=== PATIENT | female | born 2000 | race Caucasian/White ===

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

== ENCOUNTER 2021-03-13 16:56 | Emergency (ER) | payer OTHER, MEDICAID, SELFPAY ==
[2021-03-13 16:57] VITALS: BP 164/97; PULSE 113; RESP 20; TEMP 36.6; O2SAT 98; BMI 28.7
--- NOTE | 2021-03-13 17:12 | XR_ITS ---
PROCEDURE INFORMATION: Exam: XR Chest Exam date and time: 03/13/2021 5:12 PM Age: 20 years old Clinical indication: Pain; Other: Anxiety; Additional info: Heart racing. Anxiety. TECHNIQUE: Imaging protocol: XR of the chest. Views: 1 view. COMPARISON: CR XR CHEST 2V 05/12/2019 12:13 AM FINDINGS: Lungs: Unremarkable. No consolidation. Pleural spaces: Unremarkable. No pleural effusion. No pneumothorax. Heart/Mediastinum: Unremarkable. No cardiomegaly. Bones/joints: Unremarkable. IMPRESSION: No acute findings.
--- NOTE | 2021-03-13 17:18 | ECG_ITS ---
APPROVED REPORT Exam: Resting ECG HR:100 bpm ECG Measurements Heart Rate 100 AXES [place] 132 P 69 QRSd 76 QRS 69 QT 348 T 30 QTc 448 Conclusion Normal sinus rhythm Possible Left atrial enlargement Borderline ECG Electronically signed by : Son Portillo, 03/13/2021 21:29:46
--- NOTE | 2021-03-13 17:30 | HMH.EDGENADL ---
ED Disposition Clinical Impression: Headache, Palpitations Disposition: Home, Self-Care Condition on Discharge: Good Additional Instructions: Return for worsening palpitations chest pain or any other concerns within 8 hours otherwise follow-up with Dr. Velazquez next week Referrals: Nain Velazquez MD [Primary Care Provider] - - Critical Care Critical Care Time: No Attestation: On 03/13/21, the high probability of a clinically significant, sudden or life threatening deterioration of the following system(s) required my full and direct attention, intervention and personal management. The time I documented below is in addition to time spent performing reported procedures but includes the following listed in this critical care notation. Medical Decision Making - Medical Records Medical records reviewed: Yes: I reviewed the patient's medical records. - Toro Inquiry Pt receiving controlled substance: No Vital Signs: 03/13/21 16:57 Temperature 98 F Temperature Source Oral Pulse Rate [Radial] 113 H Respiratory Rate 20 Blood Pressure [Right Arm] 164/97 H Blood Pressure Mean [Right Arm] 119 Blood Pressure Position [Right Arm] Sitting 02 Sat by Pulse Oximetry 98 Oxygen Delivery Method Room Air - Lab Data Lab Results 03/13/21 17:06: Serum HCG, Qual Negative 03/13/21 17:30: WBC 5.6, RBC 4.12 L, Hgb 13.4, Hct 34.7 L, MCV 84.2, MCH 32.5 H, MCHC 38.7 H, RDW 13.4, Plt Count 287, MPV 7.5, Neut % (Auto) 59.5, Lymph % (Auto) 33.1, [place] % (Auto) 5.5, Eos % (Auto) 1.3, Baso % (Auto) 0.7, Neut # (Auto) 3.3, Lymph # (Auto) 1.8, [place] # (Auto) 0.3, Eos # (Auto) 0.1, Baso # (Auto) 0.0 03/13/21 17:30: Sodium 142, Potassium 3.8, Chloride 104, Carbon Dioxide 27, Anion Gap 14.8, BUN 15, Creatinine 0.80, Estimated Creat Clear 162, Estimated GFR 92, Est GFR ( Amer) 112, Glucose 119 H, Calcium 9.1, Magnesium 1.7, Troponin I < 0.01, TSH 1.06 03/13/21 17:30: D-Dimer 0.41 Result diagrams: 03/13/21 17:30 03/13/21 17:30 Orders (Tests/Meds): ED MEDICATIONS Generic Name Dose Route Start Last Admin Trade Name Freq PRN Reason Stop Dose Admin Sodium Chloride 1,000 mls @ 999 mls/hr 03/13/21 17:45 03/13/21 17:41 Sod Chlor 0.9% 1000ml Bag IV 03/13/21 18:45 999 mls/hr .Q1H1M MACRINA Administration Sodium Chloride 10 ml 03/13/21 17:34 Sodium Chloride 0.9% 10ml Vial IV 04/12/21 17:33 NEEDED PRN to Dilute Lorazepam inj Discontinued Medications Generic Name Dose Route Start Last Admin Trade Name Freq PRN Reason Stop Dose Admin Ketorolac Tromethamine 30 mg 03/13/21 18:34 03/13/21 18:56 Ketorolac 30mg/Ml Vial IV 03/13/21 18:35 30 mg ONCE ONE Administration Lorazepam 1 mg 03/13/21 17:34 03/13/21 17:41 Lorazepam 2mg/Ml Vial IV 03/13/21 17:35 1 mg ONCE ONE Administration Metoclopramide HCl 10 mg 03/13/21 18:33 03/13/21 18:56 Metoclopramide Hcl 10mg/2ml Vial IVP 03/13/21 18:34 10 mg ONCE ONE Administration ORDERS Category Date Time Status Troponin I Q3H Lab 03/13/21 20:15 Ordered Troponin I Q3H Lab 03/13/21 23:15 Ordered Medical Decision Narrative: 20-year-old female presents with palpitations. She is still in mild distress. Plan to obtain D-dimer as she low risk for pulmonary embolism. Thyroid and electrolytes checked as well as well as blood counts. Plan to give IV fluids and Ativan for anxiety. CT head obtained as she has had persistent daily headaches and not had a headache imaging to this point. 615pm--labs resulted D-dimer was negative hemoglobin normal electrolytes otherwise unremarkable thyroid test negative. CT head obtained and there is no evidence of hemorrhage or tumor or any other concerns. Plan to discharge with follow-up to Dr. Velazquez next week General Adult HPI - General Chief complaint: Weakness Stated complaint: Tremers,GAXIOLA Time Seen by Provider: 03/13/21 17:05 Mode of Arrival: Ambulatory Limitations: No Limitations Descript
[2021-03-13 17:58] LABS: Basophils % 0.7 % (0.1-2.0); Eosinophils # 0.1 K/mm3 (0.0-0.4); Eosinophils % 1.3 % (0.1-12.0); Hematocrit 34.7 % (37.0-47.0); Hemoglobin 13.4 g/dL (12.2-16.2); Lymphocytes # 1.8 K/mm3 (0.7-4.5); Lymphocytes % 33.1 % (10-50); Mean Corpuscular HGB Conc 38.7 g/dL (31.8-35.4); Mean Corpuscular Hemoglobin 32.5 pg (27.0-31.2); Mean Corpuscular Volume 84.2 fl (81-99); Mean Platelet Volume 7.5 fl (7.4-10.4); Monocytes # 0.3 K/mm3 (0.1-1.0); Monocytes % 5.5 % (1.7-9.3); Neutrophils # 3.3 K/mm3 (1.8-7.8); Neutrophils % 59.5 % (37.0-80.0); Platelet Count 287 K/mm3 (142-424); Red Blood Count 4.12 M/mm3 (4.20-5.40); Red Cell Distribution Width 13.4 % (11.5-17.5); White Blood Count 5.6 K/mm3 (4.5-13.0)
[2021-03-13 18:00] LABS: Chloride 104 mmol/L (98-107)
[2021-03-13 18:01] LABS: Potassium 3.8 mmoL/L (3.5-5.1); Sodium 142 mmol/L (136-145)
[2021-03-13 18:03] LABS: HCG Qualitative, Serum Negative (Negative)
[2021-03-13 18:04] LABS: Anion Gap 14.8 mEq/L (5-15); Blood Urea Nitrogen 15 mg/dl (7-17); Calcium 9.1 mg/dl (8.4-10.2); Carbon Dioxide 27 mmol/L (22.0-30.0); Creatinine Clearance Estimated 162 mL/min (50-200); Estimated Glomerular Filt Rate 92 ml/min (>60); GFR (African American) 112 ML/MIN (>60); Glucose 119 mg/dl (74-100); Magnesium 1.7 mg/dl (1.6-2.3)
[2021-03-13 18:12] LABS: D-Dimer 0.41 ug/mL (0.0-0.5)
[2021-03-13 18:26] LABS: Troponin I < 0.01 ng/ml (0.00-0.034)
--- NOTE | 2021-03-13 18:33 | CT_ITS ---
PROCEDURE INFORMATION: Exam: CT Head Without Contrast Exam date and time: 03/13/2021 6:33 PM Age: 20 years old Clinical indication: Pain; Headache; Other: Back of head TECHNIQUE: Imaging protocol: Computed tomography of the head without contrast. Radiation optimization: All CT scans at this facility use at least one of these dose optimization techniques: automated exposure control; mA and/or kV adjustment per patient size (includes targeted exams where dose is matched to clinical indication); or iterative reconstruction. COMPARISON: HEADWO CT head/brain wo con 02/02/2018 10:23 PM FINDINGS: Brain: Normal. No hemorrhage. Unremarkable white matter. No mass effect. Cerebral ventricles: No ventriculomegaly. Paranasal sinuses: Visualized sinuses are unremarkable. No fluid levels. Mastoid air cells: Visualized mastoid air cells are well aerated. Bones/joints: Unremarkable. No acute fracture. Soft tissues: Unremarkable. No reconstructions provided. IMPRESSION: No acute intracranial abnormality.
[2021-03-13 18:35] LABS: Thyroid Stimulating Hormone 1.06 uIU/mL (0.465-4.68)
[2021-03-13 19:42] VITALS: BP 141/76; PULSE 90; RESP 18; TEMP 36.7; O2SAT 97
== END 2021-03-13 19:47 | disposition home or self-care (01) ==
PROVIDERS: Emergency Provider Emergency Medicine; PCP Emergency Medicine
DX: R51.9 Headache, unspecified (principal); R00.2 Palpitations
CPT/HCPCS: 70450; 71045; 80048; 83735; 84443; 84484; 84703; 85025; 85378; 93005; 96365; 96375; 99283

== ENCOUNTER → 2021-05-09 15:07 | Outpatient (CLI) | payer OTHER, MEDICAID, SELFPAY ==
--- NOTE | 2021-05-09 15:17 | MR_ITS ---
PROCEDURE: MR HEAD/BRAIN WO CON CLINICAL INDICATION: eval for MANAGER SEMICONDUCTOR abnormality Headache, left upper extremity tingling the COMPARISON: No exams were available for comparison TECHNIQUE: Routine multiplanar multi echo sequences are performed without gadolinium enhancement. FINDINGS: No midline shift, mass effect, intracranial hemorrhage, or hydrocephalus is evident. The cerebellopontine angles, cerebellum, and brainstem have an unremarkable appearance. No areas of restricted diffusion that would indicate an acute infarction. Unremarkable appearing white matter. The hippocampal gyri have an unremarkable appearance in the temporal horns are symmetric. The pituitary, optic chiasm, corpus callosum, and craniocervical junction are unremarkable. No large aneurysms apparent. No mastoid effusion or sinus air-fluid level. Mild rightward nasal septal deviation. Unremarkable appearing orbits. IMPRESSION: Negative MRI of the brain without contrast Dictated by: Agustín Solomon MD 05/12/2021 07:43 Agustín Solomon MD in [place] 05/12/2021 07:43
--- NOTE | 2021-05-09 15:17 | MR_ITS ---
PROCEDURE: MR CERVICAL SPINE WO CON CLINICAL INDICATION: eval for cervical radiculopathy with early myelopa Left upper extremity tingling COMPARISON: CT SPCERVWO CT cervical spine wo con from 02/02/2018 CR XR CHEST PORTABLE from 03/13/2021 TECHNIQUE: Standard multiplanar multiecho sequences are performed without contrast. 3-D MIP and myelographic images are also rendered and reviewed FINDINGS: There is slight reversal of the lower cervical lordosis. The craniocervical junction has an unremarkable appearance. C2-C3: Unremarkable. C3-C4: Unremarkable. C4-C5: Unremarkable. C5-C6: Unremarkable. C6-C7: Unremarkable. C7-T1: Unremarkable. The spinal cord has unremarkable signal intensity. There is minimal upper cervical curvature convex right and cervical thoracic curvature convex left. IMPRESSION: Essentially negative MRI of the cervical spine. Dictated by: Agustín Solomon MD 05/12/2021 08:02 Agustín Solomon MD in [facility] 05/12/2021 08:02
== END ==
PROVIDERS: PCP Emergency Medicine; Visit Provider Nurse Practitioner Family
DX: R51.9 Headache, unspecified (principal); M54.2 Cervicalgia; R20.0 Anesthesia of skin; R20.2 Paresthesia of skin; R29.2 Abnormal reflex; G47.00 Insomnia, unspecified
CPT/HCPCS: 70551; 72141; 76376

== ENCOUNTER 2021-12-12 22:48 | Emergency (ER) | payer OTHER, MEDICAID, SELFPAY ==
[2021-12-12 22:59] VITALS: BP 160/92; PULSE 86; RESP 18; TEMP 37.2; O2SAT 99; BMI 29.5
[2021-12-12 23:00] VITALS: BP 167/104; PULSE 99; O2SAT 99
--- NOTE | 2021-12-12 23:05 | XR_ITS ---
PROCEDURE INFORMATION: Exam: XR Chest Exam date and time: 12/12/2021 11:35 PM Age: 21 years old Clinical indication: Sternal or substernal pain; Additional info: Chest pain, cough, congestion, left ear pain TECHNIQUE: Imaging protocol: XR of the chest. Views: 2 views. COMPARISON: CR XR CHEST PORTABLE 03/13/2021 5:33 PM FINDINGS: Lungs: Unremarkable. No consolidation. Pleural spaces: Unremarkable. No pleural effusion. No pneumothorax. Heart/Mediastinum: Unremarkable. No cardiomegaly. Bones/joints: Unremarkable. IMPRESSION: No acute findings.
[2021-12-12 23:29] LABS: Basophils # 0.2 K/mm3 (0-0.2); Basophils % 2.1 % (0.1-2.0); Eosinophils # 0.2 K/mm3 (0.0-0.4); Eosinophils % 2.1 % (0.1-12.0); Hematocrit 39.8 % (37.0-47.0); Hemoglobin 13.2 g/dL (12.2-16.2); Lymphocytes # 2.7 K/mm3 (0.7-4.5); Lymphocytes % 33.8 % (10-50); Mean Corpuscular HGB Conc 33.2 g/dL (31.8-35.4); Mean Corpuscular Hemoglobin 29.3 pg (27.0-31.2); Mean Corpuscular Volume 88.5 fl (81-99); Mean Platelet Volume 7.5 fl (7.4-10.4); Monocytes # 0.5 K/mm3 (0.1-1.0); Neutrophils # 4.4 K/mm3 (1.8-7.8); Platelet Count 323 K/mm3 (142-424); Red Cell Distribution Width 13.5 % (11.5-17.5); White Blood Count 7.9 K/mm3 (4.5-13.0)
[2021-12-12 23:31] VITALS: BP 138/85; PULSE 86; O2SAT 100
[2021-12-12 23:40] LABS: HCG Qualitative, Serum Negative (Negative)
[2021-12-12 23:42] LABS: Alanine Aminotransferase 21 U/L (12-78); Albumin Level 4.5 g/dl (3.5-5.0); Albumin/Globulin Ratio 1.4 (1.1-1.8); Alkaline Phosphatase 83 U/L (38-126); Anion Gap 13.4 mEq/L (5-15); Aspartate Amino Transferase 27 U/L (14-36); Bilirubin,Total 0.4 mg/dl (0.2-1.3); Blood Urea Nitrogen 13 mg/dl (7-17); Calcium 8.8 mg/dl (8.4-10.2); Carbon Dioxide 26 mmol/L (22.0-30.0); Chloride 104 mmol/L (98-107); Creatinine Clearance Estimated 184 mL/min (50-200); Estimated Glomerular Filt Rate 107 ml/min (>60); GFR (African American) 129 ML/MIN (>60); Globulin 3.3 g/dL (1.3-3.2); Glucose 94 mg/dl (74-100); Potassium 4.4 mmoL/L (3.5-5.1); Sodium 139 mmol/L (136-145); Total Protein,Serum 7.8 g/dl (6.3-8.2)
[2021-12-13] VITALS: BP 159/99; PULSE 80; O2SAT 97
[2021-12-13 00:30] VITALS: BP 163/99; PULSE 80; O2SAT 100
[2021-12-13 00:30] LABS: Coronavirus 19, PCR Not Detected (NotDetected); Influenza A, PCR Not Detected (NotDetected); Influenza B, PCR Not Detected (NotDetected)
[2021-12-13 00:36] LABS: C-Reactive Protein 16.1 mg/L (0-4)
--- NOTE | 2021-12-13 00:42 | HMH.EDURI ---
ED Disposition Clinical Impression: Otitis media Qualifiers: Otitis media type: serous Chronicity: acute Laterality: left Recurrence: not specified as recurrent Qualified Code(s): H65.02 - Acute serous otitis media, left ear Disposition: Home, Self-Care Condition on Discharge: Good Instructions: DI for Middle Ear Infection-Adult Additional Instructions: use meds and see pcp for follow up Prescriptions: levoFLOXacin [Levaquin 500mg tab] 500 mg PO DAILY #7 tab Transmission Status: Pending to [facility] # predniSONE [Prednisone 20mg Tab] 20 mg PO BID #10 tab Transmission Status: Pending to [facility] # Referrals: Nain Velazquez MD [Primary Care Provider] - - Critical Care Critical Care Time: No Attestation: On 12/12/21, the high probability of a clinically significant, sudden or life threatening deterioration of the following system(s) required my full and direct attention, intervention and personal management. The time I documented below is in addition to time spent performing reported procedures but includes the following listed in this critical care notation. Medical Decision Making - Medical Records Medical records reviewed: Yes: I reviewed the patient's medical records. - Toro Inquiry Pt receiving controlled substance: No Vital Signs: 12/12/21 22:59 12/12/21 23:00 12/12/21 23:31 Temperature 98.9 F Temperature Source Oral Pulse Rate 99 H 86 Pulse Rate [Left Radial] 86 Respiratory Rate 18 Blood Pressure 167/104 H 138/85 Blood Pressure [Right Arm] 160/92 H Blood Pressure Mean 102 Blood Pressure Mean [Right Arm] 114 Blood Pressure Source [Right Arm] Automatic Cuff Blood Pressure Position [Right Arm] Sitting 02 Sat by Pulse Oximetry 99 99 100 Oxygen Delivery Method Room Air Room Air Room Air 12/13/21 00:00 Temperature Temperature Source Pulse Rate 80 Pulse Rate [Left Radial] Respiratory Rate Blood Pressure 159/99 H Blood Pressure [Right Arm] Blood Pressure Mean Blood Pressure Mean [Right Arm] Blood Pressure Source [Right Arm] Blood Pressure Position [Right Arm] 02 Sat by Pulse Oximetry 97 Oxygen Delivery Method Room Air - Lab Data Lab results reviewed: Yes: I reviewed the patient's lab results. Lab Results 12/12/21 23:20: WBC 7.9, RBC 4.50, Hgb 13.2, Hct 39.8, MCV 88.5, MCH 29.3, MCHC 33.2, RDW 13.5, Plt Count 323, MPV 7.5, Neut % (Auto) 56.0, Lymph % (Auto) 33.8, [place] % (Auto) 6.0, Eos % (Auto) 2.1, Baso % (Auto) 2.1 H, Neut # (Auto) 4.4, Lymph # (Auto) 2.7, [place] # (Auto) 0.5, Eos # (Auto) 0.2, Baso # (Auto) 0.2 12/12/21 23:20: Sodium 139, Potassium 4.4, Chloride 104, Carbon Dioxide 26, Anion Gap 13.4, BUN 13, Creatinine 0.70, Estimated Creat Clear 184, Estimated GFR 107, Est GFR ( Amer) 129, Glucose 94, Calcium 8.8, Total Bilirubin 0.4, AST 27, ALT 21, Alkaline Phosphatase 83, Total Protein 7.8, Albumin 4.5, Globulin 3.3 H, Albumin/Globulin Ratio 1.4 12/12/21 23:20: Serum HCG, Qual Negative 12/12/21 23:20: C-Reactive Protein 16.1 H Result diagrams: 12/12/21 23:20 12/12/21 23:20 Orders (Tests/Meds): ED MEDICATIONS Generic Name Dose Route Start Last Admin Trade Name Freq PRN Reason Stop Dose Admin Lactated Ringer's 500 mls @ 999 mls/hr 12/12/21 23:15 12/12/21 23:14 Lactated Ringer's 1000 Ml Bag IV 12/12/21 23:45 999 mls/hr .Q31M MACRINA Administration Sodium Chloride 10 ml 12/12/21 23:24 Sodium Chloride 0.9% 10ml Flush Syringe IV 01/11/22 23:23 NEEDED PRN Maintain IV Site Discontinued Medications Generic Name Dose Route Start Last Admin Trade Name Freq PRN Reason Stop Dose Admin Acetaminophen 1,000 mg 12/12/21 23:07 12/12/21 23:13 Acetaminophen 500mg Tab PO 12/12/21 23:08 1,000 mg ONCE ONE Administration Ibuprofen 600 mg 12/12/21 23:08 12/12/21 23:15 Ibuprofen 600 Mg Tablet PO 04/15/22 23:09 600 mg ONCE ONE Administration Methylprednisolo
[2021-12-13 00:47] LABS: Erythrocyte Sedimentation Rate 45 mm/hr (0-20)
[2021-12-13 00:49] LABS: Procalcitonin 0.082 ng/mL (0.0-2.0)
[2021-12-13 00:54] VITALS: BP 160/99; PULSE 80; RESP 20; TEMP 36.8; O2SAT 99
== END 2021-12-13 01:00 | disposition home or self-care (01) ==
PROVIDERS: Emergency Provider Emergency Medicine; PCP Emergency Medicine
DX: H65.02 Acute serous otitis media, left ear (principal); J06.9 Acute upper respiratory infection, unspecified; F41.8 Other specified anxiety disorders; Z79.899 Other long term (current) drug therapy
CPT/HCPCS: 71046; 80053; 84145; 84703; 85025; 85651; 86140; 96365; 96375; 99284; C9803; U0003; U0005

== ENCOUNTER 2024-08-29 09:30 | Emergency (ER) | payer OTHER, SELFPAY ==
[2024-08-29] VITALS (9 sets, daily range): BP systolic 116–144; BP diastolic 75–95; PULSE 70–108; RESP 16–18; TEMP 36.6–36.9; O2SAT 98–100; BMI 39.5
--- NOTE | 2024-08-29 10:11 | CT_ITS ---
FINAL REPORT TECHNIQUE: Thin section axial images were obtained through the abdomen after intravenous contrast. Reconstruction images were obtained from the axial data. Exam was performed using dose reduction techniques. CLINICAL HISTORY: suprapubic pain, epigastric pain, vom diarrhhea COMPARISON: None FINDINGS: The lung bases are clear. The liver is homogeneous. The gallbladder is present. The adrenal glands and pancreas are unremarkable. There is a small hypodense lesion in the spleen, which likely represents a splenic cyst. There is no hydronephrosis or solid renal mass. There is no evidence of small bowel obstruction. There are fluid-filled small bowel loops with wall thickening, and mild fluid in the distal colon. There is no abdominal lymphadenopathy or ascites. The pelvic solid organs are unremarkable. The appendix is normal in appearance. There are small right lower quadrant lymph nodes present, likely reactive. No free fluid is present in the pelvis. No acute osseous abnormalities identified. IMPRESSION: Fluid-filled small bowel loops with wall thickening, and mild fluid in the distal colon. The appearance is consistent with enterocolitis, likely infectious or inflammatory. Reviewed, Interpreted and Dictated by Kiara Swenson MD Transcribed by Rajwinder Saxena Authenticated and [facility]
--- NOTE | 2024-08-29 10:13 | HMH.EDGENADL ---
Discharge Plan Disposition Patient Disposition: Home, Self-Care Prescriptions Prescriptions: New ondansetron 4 mg tablet,disintegrating 4 mg PO Q8H PRN (Reason: nausea and vomiting) 4 Days Qty: 12 0RF No Action sertraline 100 mg tablet See Rx Instructions .ROUTE .COMPLEX Qty: 90 0RF Dose Instruction: TAKE 1 TABLET BY MOUTH EVERY DAY Rx Instructions: TAKE 1 TABLET BY MOUTH EVERY DAY Referrals Follow up/Referrals: Jesus Griffith, [Primary Care Provider] - See instructions Activity Restrictions/Add. Instructions Additional Instructions/Restrictions: At this time it was felt you are safe to be discharged home. If new or worsening symptoms please do not hesitate to return the emergency department. Please drink as much water as you are able over the coming days and take your medication as prescribed. Clinical Impressions Clinical Impression: Enterocolitis, Acute viral syndrome Instructions Patient Instructions: DI for Diarrhea and Traveler's Diarrhea -- Adult, DI for Diarrhea and Traveler's Diarrhea -- Child, DI for Nausea -- Adult, DI for Nausea -- Child Print Language Print Language: Ivorian Discharge ED Provider: Beka Silva General Adult HPI General Chief complaint: Nausea/Vomiting/Diarrhea Stated complaint: vomiting, weakness Time Seen by Provider: 08/29/24 09:57 Mode of Arrival: Ambulatory Source of Information: Patient and Significant Other Limitations: No Limitations Description of Symptoms (Recalled from ER Triage Doc. by RN): Pt. presents to the ED with complaints of nausea, vomiting, and diarrhea for 2 hours. History of Present Illness HPI narrative: Patient is a 23-year-old female with no significant chronic comorbidities who presents emergency department for evaluation of vomiting, diarrhea, abdominal discomfort. Onset was acute since 6 AM this morning, intractable nonbloody vomiting and diarrhea with inability to tolerate p.o. intake. She has epigastric discomfort as well as suprapubic discomfort, no specific right lower quadrant pain, no chest pain, no other acute complaints at this time. Due to persistent symptoms she presents here for continued evaluation. Related Data Previous Rx's ?Medication ?Instructions ?Recorded sertraline 100 mg tablet See Rx Instructions .Route 03/14/24 .COMPLEX #90 tabs ondansetron 4 mg disintegrating 4 mg PO Q8H PRN nausea and 08/29/24 tablet vomiting 4 days #12 tabs Allergies Allergy/AdvReac Type Severity Reaction Status Date / Time No Known Allergies Allergy Verified 08/29/24 09:40 [facility] Disclaimer: The information contained in this section may have been updated after the patient was seen, as this information can be updated by other users. Medical History (Updated 08/29/24 @ 13:18 by Beka Silva MD) Depression Anxiety Family History (Updated 06/04/23 @ 15:38 by Kecia Almanza CMA) Grandfather Cancer Diabetes Mother FHx: mental illness Multiple sclerosis Father Hyperlipidemia Hypertension Brother Hyperlipidemia Hypertension Other Anemia Asthma Social History Smoking Status: Never smoker alcohol intake: never substance use type: denies use current occupational status: student Travel in the last 8 weeks: None household members: family housing: house Have you lived/traveled outside US in past 30 days?: No Contact w/someone who lives/traveled outside US past 30 days?: No Exposure to someone with infectious disease in past 14 days?: No Do you have a fever (greater than 100.4 F or 38 C)?: No Have you tested positive for COVID-19: No Exposed to someone with COVID-19 in past 14 days?: No Do you have a sore throat?: No Do you have a cough?: Yes Do you have any weakness?: Yes Do you have any diarrhea?: Yes Are you experiencing any unusual bleeding?: No Do you have any muscle aches/pain?: No Do you have any abdominal pain?: No Are you experiencing loss of taste or smell?: No Other Medical History Have you received the Flu Vaccine for this season: Yes Have you received the Pneumonia Vaccine: Yes ROS Obtained: Yes Systems reviewed as appropriate & no additional complaints except as documented Physical Exam General General appearance: alert and in no apparent distress Head Head exam: atraumatic and normocephalic Eye Eye exam: Present PERRL ENT ENT exam: Present mucous membranes moist Neck Neck exam: Present normal inspection Chest Chest inspection: Present normal inspection and symmetric chest wall rise Respiratory Respiratory exam: Present normal lung sounds bilaterally; Absent respiratory distress Cardiovascular Cardiovascular exam: Present normal rhythm and tachycardia Abdominal Exam Abdominal exam: Present soft and tenderness (Mild, suprapubic, epigastric); Absent guarding or rebound Extremities Exam Extremities exam: Present normal inspection Neurological Exam Neurological exam: Present alert Psychiatric Psychiatric exam: Present normal affect Skin Skin exam: Present warm and dry Medical Decision Making Medical Records Screening: Per USPSTF and CDC recommendations, given the prevalence of disease in our region, it is our hospital?s policy to screen for HIV and viral Hepatitis for all patients aged 18 and over and those with ongoing risk factors. Toro Inquiry Pt receiving controlled substance: No Vital Signs: 08/29/24 09:40 08/29/24 10:28 08/29/24 10:30 Temperature 97.8 F Temperature Source Oral Pulse Rate 86 76 Pulse Rate [Right Brachial] 108 H Respiratory Rate 18 Blood Pressure 137/87 135/89 Blood Pressure [Right Arm] 138/95 H Blood Pressure Mean [Right Arm] 109 Blood Pressure Source [Right Arm] Automatic Cuff Blood Pressure Position [Right Arm] Sitting 02 Sat by Pulse Oximetry 100 100 98 Oxygen Delivery Method Room Air Room Air Room Air 08/29/24 11:03 08/29/24 11:31 08/29/24 12:01 Temperature Temperature Source Pulse Rate 95 H 86 77 Pulse Rate [Right Brachial] Respiratory Rate Blood Pressure 144/75 H 140/81 128/78 Blood Pressure [Right Arm] Blood Pressure Mean [Right Arm] Blood Pressure Source [Right Arm] Blood Pressure Position [Right Arm] 02 Sat by Pulse Oximetry 99 100 100 Oxygen Delivery Method Room Air Room Air Room Air 08/29/24 12:30 08/29/24 12:47 Temperature Temperature Source Pulse Rate 70 90 Pulse Rate [Right Brachial] Respiratory Rate Blood Pressure 128/95 H 118/95 H Blood Pressure [Right Arm] Blood Pressure Mean [Right Arm] Blood Pressure Source [Right Arm] Blood Pressure Position [Right Arm] 02 Sat by Pulse Oximetry 100 100 Oxygen Delivery Method Room Air Room Air Lab Data Lab Results 08/29/24 10:12: WBC 12.1 H, RBC 5.11, Hgb 14.3, Hct 43.6, MCV 85.3, MCH 28.0, MCHC 32.8, RDW 12.9, Plt Count 338, MPV 9.9, Neut % (Auto) 81.6 H, Lymph % (Auto) 10.0, [place] % (Auto) 6.8, Eos % (Auto) 0.9, Baso % (Auto) 0.4, Neut # (Auto) 9.9 H, Lymph # (Auto) 1.2, [place] # (Auto) 0.8, Eos # (Auto) 0.1, Baso # (Auto) 0.1, Sodium 135 L, Potassium 4.1, Chloride 105, Carbon Dioxide 23, Anion Gap 11.1, BUN 14, Creatinine 0.60, Estimated Creat Clear 274, Estimated GFR 125, Est GFR ( Amer) 151, Glucose 131 H, Calcium 9.5, Total Bilirubin 0.8, AST 51 H, ALT 26, Alkaline Phosphatase 107, Troponin I < 0.01, Total Protein 7.7, Albumin 4.4, Globulin 3.3 H, Albumin/Globulin Ratio 1.3, Lipase 51, SARS-CoV-2 (PCR) Not detected, Influenza A Untype (PCR) Not detected, Influenza Type B (PCR) Not detected 08/29/24 11:03: Urine Color Yellow, Urine Appearance Sl cloudy, Urine pH 5.5, Ur Specific [place] >= 1.030, Urine Protein Negative, Urine Glucose (UA) Negative, Urine Ketones Trace, Urine Blood Negative, Urine Nitrate Negative, Urine Bilirubin Negative, Urine Urobilinogen 0.2, Ur Leukocyte Esterase Negative, Urine RBC None, Urine WBC None, Ur Squamous Epith Cells Occasional, Amorphous Sediment 2+, Urine Bacteria Trace, Urine HCG, Qual Negative 08/29/24 10:12 08/29/24 10:12 Orders (Tests/Meds): ED MEDICATIONS Discontinued Medications Generic Name Dose Route Start Last Admin Trade Name Freq PRN Reason Stop Dose Admin Lactated Ringer's 1,000 mls @ 999 mls/hr 08/29/24 10:11 08/29/24 10:20 Lactated Ringer's 1000 Ml Bag IV 08/29/24 11:11 999 mls/hr .Q1H1M ONE Administration Iopamidol 75 ml 08/29/24 11:51 08/29/24 11:51 Iopamidol-370 (76%);100ml Bottle IV 08/29/24 11:52 75 ml ONCE ONE Administration Ondansetron HCl 4 mg 08/29/24 10:11 08/29/24 10:20 Ondansetron 4mg/2ml Vial IV 08/29/24 10:12 4 mg ONCE ONE Administration Promethazine HCl 12.5 mg 08/29/24 11:33 08/29/24 11:49 Promethazine Hcl 25mg/Ml 1ml Vial IV 08/29/24 11:34 12.5 mg ONCE ONE Administration Sodium Chloride 25 ml 08/29/24 11:33 08/29/24 11:49 Sodium Chloride 0.9% 25ml Bag IV 08/29/24 11:34 25 ml ONCE ONE Administration Sodium Chloride 10 ml 08/29/24 11:51 08/29/24 11:51 Sodium Chloride 0.9% 10ml Syr (Rad Only) IV 08/29/24 11:52 10 ml ONCE ONE Administration ORDERS Category Date Time Status CT abdomen pelvis w con Stat Cat Scan 08/29/24 10:11 Completed CBC w/Auto Diff [Complete Blood Count Auto Diff] Stat Lab 08/29/24 10:12 Completed CMP [Comprehensive Metabolic Panel] Stat Lab 08/29/24 10:12 Completed HIV (1&2) Antibody Rapid Stat Lab 08/29/24 09:44 Ordered Hep C Ab with Reflex to RNA Stat Lab 08/29/24 09:44 Ordered Lipase Stat Lab 08/29/24 10:12 Completed Rapid PCR Covid and Flu A/B Stat Lab 08/29/24 10:12 Completed Trop I [Troponin I] Stat Lab 08/29/24 10:12 Completed UA [Urinalysis and Microscopic] Stat Lab 08/29/24 11:03 Completed Urine , HCG Qual. Stat Lab 08/29/24 11:03 Completed ECG Data Tracing #1: Independently interpreted by me rate is 81, rhythm is regular, axis is normal, no ST elevation in anatomical contiguous leads, QTc 404 Medical Decision Narrative: In summary patient is a 23-year-old female with past medical history described above presents emergency department for evaluation of nonbloody vomiting, diarrhea, epigastric and suprapubic pain. Patient is hemodynamically stable nontoxic-appearing upon arrival, afebrile. I suspect the patient has a viral syndrome causing her vomiting and diarrhea however differential includes , pancreatitis, appendicitis, urinary tract infection, among others. Workup will be conducted with hematologic labs, urinalysis, CT abdomen pelvis IV contrast, single troponin. Initial inventions include Tylenol, Zofran, crystalloid bolus. Initial workup reviewed by me, slight leukocytosis no anemia, no thrombocytopenia, no critical electrolyte abnormality initial troponin undetectably low. Urinalysis interpreted by me and not consistent with infection hCG negative. CT abdomen and pelvis shows findings consistent with enterocolitis which makes sense with patient's clinical picture. Given duration of symptoms supportive care will be undertaken at this time and patient underwent p.o. trial with successful is appropriate outpatient management will be discharged with a course of Zofran was given return precautions. Critical Care Critical Care Time Critical Care Time: No
[2024-08-29] MEDS: LACTATED RINGERS 1000ML 1,000 ML 999 ML IV (10:20)
[2024-08-29] MEDS: ONDANSETRON 4MG/2ML VIAL 4 MG IV (10:20)
[2024-08-29 10:25] LABS: Coronavirus 19, PCR Not Detected (NotDetected); Influenza A, PCR Not Detected (NotDetected); Influenza B, PCR Not Detected (NotDetected)
[2024-08-29 10:30] LABS: Basophils # 0.1 K/mm3 (0-0.2); Basophils % 0.4 % (0.1-2.0); Eosinophils # 0.1 K/mm3 (0.0-0.4); Eosinophils % 0.9 % (0.1-12.0); Hematocrit 43.6 % (37.0-47.0); Hemoglobin 14.3 g/dL (12.2-16.2); Lymphocytes # 1.2 K/mm3 (0.7-4.5); Mean Corpuscular HGB Conc 32.8 g/dL (31.8-35.4); Mean Corpuscular Volume 85.3 fl (81-99); Mean Platelet Volume 9.9 fl (7.4-10.4); Monocytes # 0.8 K/mm3 (0.1-1.0); Monocytes % 6.8 % (1.7-9.3); Neutrophils # 9.9 K/mm3 (1.8-7.8); Neutrophils % 81.6 % (37.0-80.0); Platelet Count 338 K/mm3 (142-424); Red Blood Count 5.11 M/mm3 (4.20-5.40); Red Cell Distribution Width 12.9 % (11.5-17.5); White Blood Count 12.1 K/mm3 (4.8-10.8)
[2024-08-29 10:33] LABS: Albumin Level 4.4 g/dl (3.5-5.0); Chloride 105 mmol/L (98-107); Potassium 4.1 mmoL/L (3.5-5.1); Sodium 135 mmol/L (136-145)
[2024-08-29 10:36] LABS: Alanine Aminotransferase 26 U/L (12-78); Albumin/Globulin Ratio 1.3 (1.1-1.8); Alkaline Phosphatase 107 U/L (38-126); Anion Gap 11.1 mEq/L (5-15); Aspartate Amino Transferase 51 U/L (14-36); Bilirubin,Total 0.8 mg/dl (0.2-1.3); Blood Urea Nitrogen 14 mg/dl (7-17); Carbon Dioxide 23 mmol/L (22.0-30.0); Creatinine Clearance Estimated 274 mL/min (50-200); Estimated Glomerular Filt Rate 125 ml/min (>60); GFR (African American) 151 ML/MIN (>60); Globulin 3.3 g/dL (1.3-3.2); Lipase 51 U/L (23-300); Total Protein,Serum 7.7 g/dl (6.3-8.2)
[2024-08-29 10:37] LABS: Calcium 9.5 mg/dl (8.4-10.2); Glucose 131 mg/dl (74-100)
--- NOTE | 2024-08-29 10:47 | PC.NURSE ---
I rounded on the pt and took her a warm blanket. no new complaints. no needs voiced. call longoria in reach.
[2024-08-29 10:50] LABS: Troponin I < 0.01 ng/ml (0.00-0.034)
[2024-08-29 11:07] LABS: Microscopic, Urine URINE MICROSCOPIC (MICROSCOPIC)
[2024-08-29 11:21] LABS: Appearance,Urine SL CLOUDY (Clear); Bilirubin,Urine Negative (Negative); Blood, Urine Negative (Negative); Color,Urine YELLOW (Yellow); Glucose,Urine (UA) Negative (Negative); Ketones,Urine TRACE (Negative); Leukocyte Esterase,Urine Negative (Negative); Nitrate,Urine Negative (Negative); PH,Urine 5.5 (5.0-8.5); Protein,Urine Negative (Negative); Specific Gravity, Urine >= 1.030 (1.005-1.030); Urobilinogen,Urine 0.2 EU/dl (0.2)
[2024-08-29 11:25] LABS: Urine Pregnancy, HCG Qual. Negative (Negative)
[2024-08-29 11:37] LABS: Amorphous Sediment,Urine 2+ /lpf; Bacteria,Urine Trace /lpf; Squamous Epithelial Cell,Urine Occasional #/hpf (0-5)
--- NOTE | 2024-08-29 11:38 | PC.NURSE ---
Pt. going to CT.
[2024-08-29] MEDS: PROMETHAZINE HCL 25MG/ML 1ML VIAL 12.5 MG IV (11:49)
[2024-08-29] MEDS: SODIUM CHLORIDE 0.9% 25ML BAG 25 ML IV (11:49)
[2024-08-29] MEDS: SODIUM CHLORIDE 0.9% 10ML SYR (RAD ONLY) 10 ML IV (11:51)
[2024-08-29] MEDS: IOPAMIDOL-370 (76%);100ML BOTTLE 75 ML IV (11:51)
--- NOTE | 2024-08-29 13:18 | PC.NURSE ---
pt was given a water at this time per to see how pt does holding it down
== END 2024-08-29 14:01 | disposition home or self-care (01) ==
PROVIDERS: Emergency Provider Emergency Medicine; PCP Internal Medicine
DX: K52.9 Noninfective gastroenteritis and colitis, unspecified (principal); B34.9 Viral infection, unspecified; R11.2 Nausea with vomiting, unspecified; R10.13 Epigastric pain; R10.2 Pelvic and perineal pain
CPT/HCPCS: 74177; 80053; 81001; 81025; 83690; 84484; 85025; 87636; 96361; 96374; 96375; 99285; J2405; J2550; J7120; Q9967

== ENCOUNTER 2024-11-29 12:13 | Emergency (ER) | payer OTHER, SELFPAY ==
[2024-11-29 12:22] VITALS: BP 142/86; PULSE 106; RESP 15; TEMP 36.7; O2SAT 99; BMI 43.8
--- NOTE | 2024-11-29 12:43 | ED_ITS ---
Discharge Plan Disposition Patient Disposition: Home, Self-Care Prescriptions Prescriptions: No Action sertraline 100 mg tablet See Rx Instructions .ROUTE .COMPLEX Qty: 90 0RF Dose Instruction: TAKE 1 TABLET BY MOUTH EVERY DAY Rx Instructions: TAKE 1 TABLET BY MOUTH EVERY DAY ondansetron 4 mg tablet,disintegrating 4 mg PO Q8H PRN (Reason: nausea and vomiting) 4 Days Qty: 12 0RF Referrals Follow up/Referrals: Olive Pa PA [Primary Care Provider] - See instructions Activity Restrictions/Add. Instructions Additional Instructions/Restrictions: Call your family doctor to establish care for this visit to the emergency department and schedule follow-up within 48 hours to ensure improvement. If you have any worsening of your condition or any other concerning signs or symptoms, return to the emergency department or your primary care doctor for further evaluation. Today, your hCG ( hormone) was 58,324. Blood type a positive. Call your [employer] CHIEF CLERK to establish care for this visit to the emergency department and continue following with them. Clinical Impressions Clinical Impression: Vaginal bleeding affecting early , Placental abruption Stand Alone Forms Stand Alone Forms: Work/School Release Print Language Print Language: Korean Discharge ED Provider: Geo Calero General Adult HPI General Chief complaint: Vaginal Bleeding Stated complaint: 11 wks , abd pain vaginal bleeding Time Seen by Provider: 11/29/24 12:20 Mode of Arrival: Ambulatory Source of Information: Patient Description of Symptoms (Recalled from ER Triage Doc. by RN): patient states she is 11 weeks last couple of days she has had some LLQ pain that radiates to her lower back that is sharp. today she woke up with a large amount of bright red blood with clots. History of Present Illness HPI narrative: Please note that above description of symptoms, in this electronic medical record under categorization of recalled from ER triage doctor by RN are reflective of an initial nursing assessment, however, is not reflective of my full history and physical exam that was personally taken and clarified. Consequentially, this preceding description of symptoms, which may include the patient's categorized chief complaint in the EMR, do not reflect my personal clinical impression, and the ultimate description of history of present illness and patient stated complaints should be deferred to this section of the note. Unless stated otherwise or congruent with this section of the note, additional signs, symptoms, or incongruence should be interpreted as inaccurate with my clinical impression. Related Data Previous Rx's ?Medication ?Instructions ?Recorded sertraline 100 mg tablet See Rx Instructions .Route 03/14/24 .COMPLEX #90 tabs ondansetron 4 mg disintegrating 4 mg PO Q8H PRN nausea and 08/29/24 tablet vomiting 4 days #12 tabs Allergies Allergy/AdvReac Type Severity Reaction Status Date / Time No Known Allergies Allergy Verified 08/29/24 09:40 [facility] Disclaimer: The information contained in this section may have been updated after the patient was seen, as this information can be updated by other users. Medical History (Updated 11/29/24 @ 14:38 by Geo Calero MD) Depression Anxiety Family History Grandfather Cancer Diabetes Mother FHx: mental illness Multiple sclerosis Father Hyperlipidemia Hypertension Brother Hyperlipidemia Hypertension Other Anemia Asthma Social History Smoking Status: Never smoker alcohol intake: never substance use type: denies use current occupational status: student Travel in the last 8 weeks: None household members: family housing: house Have you lived/traveled outside US in past 30 days?: No Contact w/someone who lives/traveled outside US past 30 days?: No Exposure to someone with infectious disease in past 14 days?: No Do you have a fever (greater than 100.4 F or 38 C)?: No Have you tested positive for COVID-19: No Exposed to someone with COVID-19 in past 14 days?: No Do you have a sore throat?: No Do you have a cough?: No Do you have any weakness?: No Do you have any diarrhea?: No Are you experiencing any unusual bleeding?: Yes Do you have any muscle aches/pain?: No Do you have any abdominal pain?: Yes Are you experiencing loss of taste or smell?: No Other Medical History Have you received the Flu Vaccine for this season: Yes Have you received the Pneumonia Vaccine: Yes ROS Obtained: Yes All systems reviewed & no additional complaints except as documented Physical Exam General General appearance: alert, anxious and obese Head Head exam: atraumatic and normocephalic Eye Eye exam: Present normal appearance, PERRL and EOMI Neck Neck exam: Present normal inspection, full ROM and trachea midline Respiratory Respiratory exam: Absent respiratory distress, wheezes, stridor, accessory muscle use or prolonged expiratory phase Cardiovascular Cardiovascular exam: Present other (Pulses equal symmetric in upper and lower extremities) Abdominal Exam Abdominal exam: Present soft and tenderness; Absent distention, guarding, rebound, rigidity or pulsatile mass Abdominal tenderness: Present LLQ and mild Extremities Exam Extremities exam: Absent edema Neurological Exam Neurological exam: Present alert, oriented X3 and CN II-XII intact; Absent motor sensory deficit Skin Skin exam: Present warm and dry; Absent diaphoresis or erythema Medical Decision Making Medical Records Medical records reviewed: Yes I reviewed the patient's medical records. Screening: Per USPSTF and CDC recommendations, given the prevalence of disease in our region, it is our hospital?s policy to screen for HIV and viral Hepatitis for all patients aged 18 and over and those with ongoing risk factors. Toro Inquiry Pt receiving controlled substance: No Toro was queried for this patient: No Vital Signs: 11/29/24 12:22 11/29/24 12:44 11/29/24 13:00 Temperature 98.1 F Temperature Source Oral Pulse Rate 90 72 Pulse Rate [Right] 106 H Respiratory Rate 15 Blood Pressure 125/92 H 137/81 Blood Pressure [Right Arm] 142/86 H Blood Pressure Mean [Right Arm] 104 Blood Pressure Source [Right Arm] Automatic Cuff Blood Pressure Position [Right Arm] Sitting 02 Sat by Pulse Oximetry 99 98 100 Oxygen Delivery Method Room Air Room Air 11/29/24 14:01 Temperature Temperature Source Pulse Rate 88 Pulse Rate [Right] Respiratory Rate Blood Pressure 139/104 H Blood Pressure [Right Arm] Blood Pressure Mean [Right Arm] Blood Pressure Source [Right Arm] Blood Pressure Position [Right Arm] 02 Sat by Pulse Oximetry 98 Oxygen Delivery Method Room Air Lab Data Lab Results 11/29/24 12:45: WBC 6.4, RBC 4.51, Hgb 12.8, Hct 38.2, MCV 84.7, MCH 28.4, MCHC 33.5, RDW 13.5, Plt Count 307, MPV 9.6, Neut % (Auto) 64.6, Lymph % (Auto) 26.5, [place] % (Auto) 7.1, Eos % (Auto) 1.1, Baso % (Auto) 0.5, Neut # (Auto) 4.1, Lymph # (Auto) 1.7, [place] # (Auto) 0.5, Eos # (Auto) 0.1, Baso # (Auto) 0.0, Sodium 137, Potassium 4.1, Chloride 105, Carbon Dioxide 24, Anion Gap 12.1, BUN 5 L, C reatinine 0.50 L, Estimated Creat Clear 170, Estimated GFR 153, Est GFR ( Amer) 185, Glucose 88, Calcium 9.4, Total Bilirubin 0.6, AST 25, ALT 18, Alkaline Phosphatase 70, Total Protein 7.3, Albumin 4.2, Globulin 3.1, Albumin/Globulin Ratio 1.4, HCG, Quant 63627 H, Blood Type A Positive, Antibody Screen Negative 11/29/24 12:45 11/29/24 12:45 Orders (Tests/Meds): ORDERS Category Date Time Status Type and Screen Stat BBK 11/29/24 12:45 Completed POCUS Point of Care (ER Only) Stat Exams 11/29/24 12:36 Completed CBC w/Auto Diff [Complete Blood Count Auto Diff] Stat Lab 11/29/24 12:45 Completed CMP [Comprehensive Metabolic Panel] Stat Lab 11/29/24 12:45 Completed HCG,Quantitative Stat Lab 11/29/24 12:45 Completed UA [Urinalysis and Microscopic] Stat Lab 11/29/24 12:36 Ordered US OB transvaginal Stat Ultrasound 11/29/24 13:11 Completed Medical Decision Narrative: 24-year-old female presenting with vaginal bleeding. She states she is about 11 weeks at this point. Has had confirmatory ultrasound at [place], following with family doctor and PCP. States that she has had spotting and some clots that started this morning. Associated with lower pelvic and back cramping. No fevers or chills, nausea or vomiting. States that she has had some dysuria associated with this. No obvious passage of tissue. This is patient's first . History was obtained via conversation with patient. On arrival, patient hemodynamically stable, alert, oriented x4, appropriate, GCS 15, moving all extremities spontaneously, pupils equal and reactive to light. Full physical exam performed and significant for anxious. Female who is in no acute distress. Abdomen soft, tender in left lower quadrant, but no rebound, rigidity, or guarding or signs of peritonitis. Differential includes threatened , incomplete , complete , vasa previa, placenta previa, subchorionic hemorrhage, abruption, among others. Patient placed on continuous cardiac monitoring and continuous pulse ox with initial blood pressure 142/86, heart rate 106, saturation 98% on room air. Workup independently interpreted and significant for nonactionable CBC or chemistry. Patient's hCG 58,324. Blood type a positive, anti-Rh Ig not needed. Bedside [id number] ultrasound was performed, heart rate right around 170, good movements. Placenta appears mildly thickened as with hyperechoic layer just internal to the uterine wall as well as small subchorionic hemorrhage. Formal transvaginal ultrasound was ordered to rule out early abruption. On independent interpretation of imaging, still concern for abruption, and she does have small area of subchorionic hemorrhage. See radiology read for full review of final results. I talked to radiology over the phone and had interactive discussion, I also spoke to [employer]IEF CLERK over the phone and had interactive discussion, all in agreement that patient has some degree of abruption. On reevaluation, patient resting comfortably, very clinically well-appearing. Given patient presentation, workup, history, this most likely represents subchorionic hemorrhage and abruption. Because patient at baseline without signs or symptoms of clinical decompensation, deemed appropriate for discharge. Results were relayed to patient who voiced understanding and were agreeable to outpatient management and follow up. I discussed my clinical impression with patient and answered all questions. At this time, the evidence for any other entities in the differential is insufficient to warrant any further testing or ED observation. This was explained as well. Advisory was given that persistent or worsening symptoms require further evaluation. I confirmed the understanding of this discussion. Flying I Instructor disclaimer Much of this encounter note is an electronic readers' advisory service librarian spoken language to printed text. Electronic readers' advisory service librarian of the spoken language may permit errors. Although I have reviewed the note, some errors may still exist. Procedures Limited Ultrasound Indication:: Limited OB ultrasound Indication: test, bleeding Identified structures: -Uterus -Left adnexa -Right adnexa -Pouch of Mickey Findings: Uterus: Definitive IUP with FHR around 170 Right adnexa: -Normal Left adnexa: -Normal Cul de sac: -free fluid absent Impression: -IUP: Present with fhr around 170 -Ectopic : Absent -Free fluid: Absent -Small amount of subchorionic hemorrhage, concern for thickened placenta, early abruption not ruled out Images were saved to permanent archive The study was technically adequate [facility] Transabdominal: [id number] This study was performed by me, and I personally interpreted all images/videos. Based on my clinical judgement, these images were adequate and did not necessitate further imaging Critical Care Critical Care Time Critical Care Time: No
[2024-11-29 12:44] VITALS: BP 125/92; PULSE 90; O2SAT 98
--- NOTE | 2024-11-29 12:53 | PC.NURSE ---
lab at bedside for Type and Screen
[2024-11-29 13:00] VITALS: BP 137/81; PULSE 72; O2SAT 100
--- NOTE | 2024-11-29 13:11 | US_ITS ---
PROCEDURE INFORMATION: Exam: US , Transvaginal Exam date and time: 11/29/2024 1:23 PM Age: 24 years old Clinical indication: Lmp or gestational age (in weeks): 10w5d; Antepartum complications; Bleeding; ; Additional info: R/O abruption, vaginal bleeding, tachycardia LABS AND CLINICAL REPORTS: Gestational age (Established): 10 w 6 d Estimated due date (Established): 06/21/2025 TECHNIQUE: Imaging protocol: Real-time transvaginal obstetrical ultrasound of the maternal pelvis with image documentation. Transvaginal imaging was used for better evaluation of the fetus, adnexa, and/or cervix. COMPARISON: CT ABDOMEN PELVIS W CON 08/29/2024 11:43 AM FINDINGS: Gestation: Yolk sac measures 5.1 mm. heart rate: 174 bpm Placenta: Small subchorionic hemorrhage is present, difficult to measure. BIOMETRY: Gestational age (AUA): 10 w 5 d Estimated due date (AUA): 06/22/2025 [place] rump length (CRL): 36.9 mm. EGA (CRL) is 10 w 4 d MATERNAL: Right ovary/adnexa: Right ovary measures 3.1 cm x 1.45 cm x 2.01 cm. Right ovarian volume is 4.73 mL. Left ovary/adnexa: Left ovary measures 2.9 cm x 2.13 cm x 2.17 cm. Left ovarian volume is 7.02 mL. 1.6 x 1.2 cm involuting corpus luteum/benign follicle in the left ovary. No follow-up is necessary. IMPRESSION: 1. Small subchorionic hemorrhage is present, difficult to measure (about 5 cm in length and 0.6 cm in thickness). 2. Single live intrauterine fetus. COMMENTS: THIS REPORT CONTAINS FINDINGS THAT MAY BE CRITICAL TO PATIENT CARE. The findings were verbally communicated via telephone conference with Geo Calero at 2:21 PM EDT on 11/29/2024. The findings were acknowledged and understood.
--- NOTE | 2024-11-29 13:12 | PC.NURSE ---
call made to US
--- NOTE | 2024-11-29 13:17 | PC.NURSE ---
pt to US via wheelchair
[2024-11-29 13:20] LABS: Basophils % 0.5 % (0.1-2.0); Eosinophils # 0.1 K/mm3 (0.0-0.4); Eosinophils % 1.1 % (0.1-12.0); Hematocrit 38.2 % (37.0-47.0); Hemoglobin 12.8 g/dL (12.2-16.2); Lymphocytes # 1.7 K/mm3 (0.7-4.5); Lymphocytes % 26.5 % (10-50); Mean Corpuscular HGB Conc 33.5 g/dL (31.8-35.4); Mean Corpuscular Hemoglobin 28.4 pg (27.0-31.2); Mean Corpuscular Volume 84.7 fl (81-99); Mean Platelet Volume 9.6 fl (7.4-10.4); Monocytes # 0.5 K/mm3 (0.1-1.0); Monocytes % 7.1 % (1.7-9.3); Neutrophils # 4.1 K/mm3 (1.8-7.8); Neutrophils % 64.6 % (37.0-80.0); Platelet Count 307 K/mm3 (142-424); Red Blood Count 4.51 M/mm3 (4.20-5.40); Red Cell Distribution Width 13.5 % (11.5-17.5); White Blood Count 6.4 K/mm3 (4.8-10.8)
[2024-11-29 13:23] LABS: Albumin Level 4.2 g/dl (3.5-5.0); Chloride 105 mmol/L (98-107)
[2024-11-29 13:24] LABS: Potassium 4.1 mmoL/L (3.5-5.1); Sodium 137 mmol/L (136-145)
[2024-11-29 13:26] LABS: Alanine Aminotransferase 18 U/L (12-78); Anion Gap 12.1 mEq/L (5-15); Aspartate Amino Transferase 25 U/L (14-36); Blood Urea Nitrogen 5 mg/dl (7-17); Carbon Dioxide 24 mmol/L (22.0-30.0); Creatinine Clearance Estimated 170 mL/min (50-200); Estimated Glomerular Filt Rate 153 ml/min (>60); GFR (African American) 185 ML/MIN (>60)
[2024-11-29 13:27] LABS: Albumin/Globulin Ratio 1.4 (1.1-1.8); Alkaline Phosphatase 70 U/L (38-126); Bilirubin,Total 0.6 mg/dl (0.2-1.3); Calcium 9.4 mg/dl (8.4-10.2); Globulin 3.1 g/dL (1.3-3.2); Glucose 88 mg/dl (74-100); Total Protein,Serum 7.3 g/dl (6.3-8.2)
--- NOTE | 2024-11-29 13:30 | PC.NURSE ---
pt back from US. pt given water to drink at this time. no other needs reported
[2024-11-29 14:01] VITALS: BP 139/104; PULSE 88; O2SAT 98
[2024-11-29 14:33] LABS: HCG,Quantitative 58324 mIU/ml (0-5.42)
[2024-11-29 14:58] VITALS: BP 127/70; PULSE 78; RESP 18; TEMP 36.8; O2SAT 98
== END 2024-11-29 14:58 | disposition home or self-care (01) ==
PROVIDERS: Emergency Provider Emergency Medicine; PCP Physician Assistant
DX: O45.90 Premature separation of placenta, unspecified, unspecified trimester (principal); O20.9 Hemorrhage in early pregnancy, unspecified; R10.32 Left lower quadrant pain; M54.50 Low back pain, unspecified; R30.0 Dysuria; N93.9 Abnormal uterine and vaginal bleeding, unspecified; Z3A.11 11 weeks gestation of pregnancy
CPT/HCPCS: 76817; 80053; 84702; 85025; 86850; 99283

== ENCOUNTER 2024-12-01 21:25 | Emergency (ER) | payer OTHER, SELFPAY ==
[2024-12-01 21:42] VITALS: BP 141/93; PULSE 101; RESP 17; TEMP 36.8; O2SAT 99; BMI 42.5
[2024-12-01 21:45] VITALS: PULSE 82; O2SAT 99
[2024-12-01 22:00] VITALS: BP 133/96; PULSE 76; O2SAT 100
--- NOTE | 2024-12-01 22:03 | US_ITS ---
PROCEDURE INFORMATION: Exam: US , Transvaginal Exam date and time: 12/01/2024 10:30 PM Age: 24 years old Clinical indication: complicated by abdominal or pelvic pain; Left lower quadrant; First trimester (<14 weeks 0 days); Gestational age or lmp: 11w; ; Additional info: llq abdominal pain LABS AND CLINICAL REPORTS: Gestational age (Established): 11 w 1 d Estimated due date (Established): 06/21/2025 TECHNIQUE: Imaging protocol: Real-time transvaginal obstetrical ultrasound of the maternal pelvis with image documentation. Transvaginal imaging was used for better evaluation of the fetus, adnexa, and/or cervix. COMPARISON: US OB TRANSVAGINAL 11/29/2024 1:23 PM FINDINGS: Gestation: [place] living intrauterine gestation measuring 3.88 cm. Yolk sac measures 6.4 mm. heart rate: 172 bpm Placenta: Small subchorionic hematoma. BIOMETRY: Gestational age (AUA): 10 w 6 d Estimated due date (AUA): 06/23/2025 [place] rump length (CRL): EGA (CRL) is 10 w 5 d MATERNAL: Right ovary/adnexa: Right ovary measures 2.71 cm x 2.08 cm x 1.66 cm. Right ovarian volume is 4.9 mL. Left ovary/adnexa: Left ovary measures 3.15 cm x 2.67 cm x 2.63 cm. Left ovarian volume is 11.58 mL. Corpus luteal cyst. IMPRESSION: 1. [place] living intrauterine gestation with estimated gestational age 10 weeks 6 days. 2. Small subchorionic hematoma. 3. Left ovarian corpus luteal cyst.
--- NOTE | 2024-12-01 22:04 | PC.NURSE ---
called radiology to call in US tech at this time for LLQ abd pain with .
--- NOTE | 2024-12-01 22:04 | HMH.EDGENADL ---
Discharge Plan Disposition Patient Disposition: Home, Self-Care Condition: Good Prescriptions Prescriptions: New nitrofurantoin monohyd/m-cryst [Macrobid] 100 mg capsule 100 mg PO BID 7 Days Qty: 14 0RF Rx Instructions: must administer with a meal/food No Action sertraline 100 mg tablet See Rx Instructions .ROUTE .COMPLEX Qty: 90 0RF Dose Instruction: TAKE 1 TABLET BY MOUTH EVERY DAY Rx Instructions: TAKE 1 TABLET BY MOUTH EVERY DAY ondansetron 4 mg tablet,disintegrating 4 mg PO Q8H PRN (Reason: nausea and vomiting) 4 Days Qty: 12 0RF Referrals Follow up/Referrals: Olive Pa PA [Primary Care Provider] - See instructions Activity Restrictions/Add. Instructions Additional Instructions/Restrictions: You were evaluated in the ER and are appropriate for discharge at this time. Take the prescribed antibiotic as directed, do not skip doses, do not stop taking it early. Call your OB and make an appointment for immediate follow-up. Return to the ER with any new, worsening, or otherwise concerning symptoms. Clinical Impressions Clinical Impression: Left lower quadrant abdominal pain during , Asymptomatic bacteriuria, Subchorionic hematoma in first trimester Print Language Print Language: [place]i Discharge ED Provider: Beka Silva General Adult HPI <Beka Silva MD - Last Filed: 12/01/24 23:14> General Chief complaint: PAIN Stated complaint: abd pain going around to back Time Seen by Provider: 12/01/24 21:52 Mode of Arrival: Ambulatory Source of Information: Patient Description of Symptoms (Recalled from ER Triage Doc. by RN): She states she was seen by Dr. Calero 3 days ago and that they seen a placental abruption and she was told that if her pain was worse to come back. She states is 11 weeks and that her OB is in [place] at [facility] but she would like to transfer her OBGYN care to [facility]. She reports left lower abdominal pain radiating to her back 04/08. She states the pain is intermittent and sometimes it is sharp and sometimes it is an ache. History of Present Illness HPI narrative: Patient is a 24-year-old female EGA 11 weeks who presents emergency department for evaluation of left lower quadrant abdominal pain. Patient has had this since she was discharged the other day with diagnosis of subchorionic hematoma and was to follow-up with her OB which was pending. Patient has followed up to 8 weeks had definitive intrauterine and had definitive intrauterine here few days ago. The pain persist however is intermittently much worse. No significant dysuria noted no abnormal bowel movements reported. No pain on the right lower quadrant. No other acute complaints at this time. With regards to her vaginal bleeding it is still persistent however has improved over the last couple of days. Please note that above description of symptoms, in this electronic medical record under categorization of recalled from ER triage doctor by RN are reflective of an initial nursing assessment, however, is not reflective of my full history and physical exam that was personally taken and clarified. Consequentially, this preceding description of symptoms, which may include the patient's categorized chief complaint in the EMR, do not reflect my personal clinical impression, and the ultimate description of history of present illness and patient stated complaints should be deferred to this section of the note. Unless stated otherwise or congruent with this section of the note, additional signs, symptoms, or incongruence should be interpreted as inaccurate with my clinical impression. Related Data Previous Rx's ?Medication ?Instructions ?Recorded sertraline 100 mg tablet See Rx Instructions .Route 03/14/24 .COMPLEX #90 tabs ondansetron 4 mg disintegrating 4 mg PO Q8H PRN nausea and 08/29/24 tablet vomiting 4 days #12 tabs nitrofurantoin 100 mg PO BID 7 days #14 caps 12/01/24 monohydrate/macrocrystals 100 mg capsule (Macrobid) Allergies Allergy/AdvReac Type Severity Reaction Status Date / Time No Known Allergies Allergy Verified 08/29/24 09:40 [facility] <Beka Silva MD - Last Filed: 12/01/24 23:14> [facility] Disclaimer: The information contained in this section may have been updated after the patient was seen, as this information can be updated by other users. Medical History (Updated 12/02/24 @ 00:23 by Sherri Kemp MD) Depression Anxiety Family History Grandfather Cancer Diabetes Mother FHx: mental illness Multiple sclerosis Father Hyperlipidemia Hypertension Brother Hyperlipidemia Hypertension Other Anemia Asthma Social History Smoking Status: Never smoker alcohol intake: never substance use type: denies use current occupational status: student Travel in the last 8 weeks: None household members: family housing: house Have you lived/traveled outside US in past 30 days?: No Contact w/someone who lives/traveled outside US past 30 days?: No Exposure to someone with infectious disease in past 14 days?: No Do you have a fever (greater than 100.4 F or 38 C)?: No Have you tested positive for COVID-19: No Exposed to someone with COVID-19 in past 14 days?: No Do you have a sore throat?: No Do you have a cough?: No Do you have any weakness?: No Do you have any diarrhea?: No Are you experiencing any unusual bleeding?: No Do you have any muscle aches/pain?: No Do you have any abdominal pain?: No Are you experiencing loss of taste or smell?: No Other Medical History Have you received the Flu Vaccine for this season: Yes Have you received the Pneumonia Vaccine: Yes <Beka Silva MD - Last Filed: 12/01/24 23:14> ROS Obtained: Yes Systems reviewed as appropriate & no additional complaints except as documented Physical Exam <Beka Silva MD - Last Filed: 12/01/24 23:14> General General appearance: alert and in no apparent distress Head Head exam: atraumatic and normocephalic Eye Eye exam: Present PERRL ENT ENT exam: Present mucous membranes moist Neck Neck exam: Present normal inspection Chest Chest inspection: Present normal inspection and symmetric chest wall rise Respiratory Respiratory exam: Absent respiratory distress Cardiovascular Cardiovascular exam: Present regular rate and normal rhythm Abdominal Exam Abdominal exam: Present soft and tenderness (Left lower quadrant, suprapubic) Extremities Exam Extremities exam: Present normal inspection Neurological Exam Neurological exam: Present alert Psychiatric Psychiatric exam: Present normal affect Skin Skin exam: Present warm and dry Medical Decision Making <Beka Silva MD - Last Filed: 12/01/24 23:14> Medical Records Screening: Per USPSTF and CDC recommendations, given the prevalence of disease in our region, it is our hospital?s policy to screen for HIV and viral Hepatitis for all patients aged 18 and over and those with ongoing risk factors. [place] Inquiry Pt receiving controlled substance: No Vital Signs: 12/01/24 21:42 12/01/24 21:45 12/01/24 22:00 Temperature 98.3 F Temperature Source Oral Pulse Rate 82 76 Pulse Rate [Right Brachial] 101 H Respiratory Rate 17 Blood Pressure 133/96 H Blood Pressure [Right Arm] 141/93 H Blood Pressure Mean [Right Arm] 109 Blood Pressure Source Blood Pressure Source [Right Arm] Automatic Cuff Blood Pressure Position Blood Pressure Position [Right Arm] Sitting 02 Sat by Pulse Oximetry 99 99 100 Oxygen Delivery Method Room Air 12/01/24 23:05 12/01/24 23:31 12/01/24 23:45 Temperature Temperature Source Pulse Rate 80 91 H 78 Pulse Rate [Right Brachial] Respiratory Rate Blood Pressure 145/77 H 132/75 Blood Pressure [Right Arm] Blood Pressure Mean [Right Arm] Blood Pressure Source Blood Pressure Source [Right Arm] Blood Pressure Position Blood Pressure Position [Right Arm] 02 Sat by Pulse Oximetry 99 100 100 Oxygen Delivery Method Room Air 12/02/24 00:00 12/02/24 00:29 Temperature 98.3 F Temperature Source Oral Pulse Rate 77 94 H Pulse Rate [Right Brachial] Respiratory Rate 18 Blood Pressure 133/85 135/85 Blood Pressure [Right Arm] Blood Pressure Mean [Right Arm] Blood Pressure Source Automatic Cuff Blood Pressure Source [Right Arm] Blood Pressure Position Sitting Blood Pressure Position [Right Arm] 02 Sat by Pulse Oximetry 100 Oxygen Delivery Method Room Air Lab Data Lab Results 12/01/24 21:33: Urine Color Yellow, Urine Appearance Clear, Urine pH 6.5, Ur Specific [place] 1.025, Urine Protein Negative, Urine Glucose (UA) Negative, Urine Ketones Negative, Urine Blood Trace-i, Urine Nitrate Negative, Urine Bilirubin Negative, Urine Urobilinogen 0.2, Ur Leukocyte Esterase Trace, Urine RBC None, Urine WBC 3-5, Ur Squamous Epith Cells 5-10, Urine Bacteria 3+ 12/01/24 21:46: WBC 8.2 D, RBC 4.64, Hgb 13.2, Hct 39.2, MCV 84.5, MCH 28.4, MCHC 33.7, RDW 13.3, Plt Count 320, MPV 9.7, Neut % (Auto) 59.1, Lymph % (Auto) 32.3, [place] % (Auto) 6.7, Eos % (Auto) 1.2, Baso % (Auto) 0.6, Neut # (Auto) 4.8, Lymph # (Auto) 2.7, [place] # (Auto) 0.6, Eos # (Auto) 0.1, Baso # (Auto) 0.1, Sodium 138, Potassium 3.8, Chloride 106, Carbon Dioxide 22, Anion Gap 13.8, BUN 5 L, Creatinine 0.40 L, Estimated Creat Clear 221, Estimated GFR 198, Est GFR ( Amer) 239 D, Glucose 90, Calcium 9.2, Total Bilirubin 0.4, AST 29, ALT 22, Alkaline Phosphatase 68, Total Protein 7.6, Albumin 4.4, Globulin 3.2, Albumin/Globulin Ratio 1.4, HCG, Quant 13623 H, HCV Ab SEAN w/Rflx PCR Qn Negative, HIV Ag/Ab Combo Qual Negative 12/01/24 21:46 12/01/24 21:46 Orders (Tests/Meds): ED MEDICATIONS Discontinued Medications Generic Name Dose Route Start Last Admin Trade Name Freq PRN Reason Stop Dose Admin Acetaminophen 1,000 mg 12/01/24 22:03 12/01/24 22:09 Acetaminophen 1,000mg/100ml Vial IV 12/01/24 22:04 1,000 mg ONCE ONE Administration Nitrofurantoin Macrocrystals 100 mg 12/01/24 23:22 12/01/24 23:37 Nitrofurantoin 100mg Capsule PO 12/01/24 23:23 100 mg ONCE ONE Administration ORDERS Category Date Time Status CBC w/Auto Diff [Complete Blood Count Auto Diff] Stat Lab 12/01/24 21:46 Completed CMP [Comprehensive Metabolic Panel] Stat Lab 12/01/24 21:46 Completed HCG,Quantitative Stat Lab 12/01/24 21:46 Completed HIV Combo Stat Lab 12/01/24 21:46 Completed Hepatitis C Ab Qual. W/ RFX Stat Lab 12/01/24 21:46 Completed UA [Urinalysis and Microscopic] Stat Lab 12/01/24 21:33 Completed Urine Culture Stat Micro 12/01/24 21:33 Received US OB transvaginal Stat Ultrasound 12/01/24 22:03 Completed Medical Decision Narrative: In summary patient is a 24-year-old female with past medical history described above who presents emergency department for evaluation of abdominal pain. Patient is hemodynamically stable nontoxic-appearing arrival, afebrile. Differential includes threatened miscarriage, urinary tract infection, torsion, among others. Workup be conducted with hematologic labs, quantitative hCG, transvaginal ultrasound. Initial inventions include Tylenol. Initial workup reviewed by me, no significant leukocytosis, no anemia, no WALTER or critical electrolyte abnormality. Urinalysis interpreted by me and is equivocal for nitrate negative infection although not terribly convincing there is bacteria which will require treatment given status with Macrobid. Transvaginal ultrasound pending at time of transition of care to the oncoming physician, Dr. Kemp. <Sherri Kemp MD - Last Filed: 12/02/24 01:56> Vital Signs: 12/01/24 21:42 12/01/24 21:45 12/01/24 22:00 Temperature 98.3 F Temperature Source Oral Pulse Rate 82 76 Pulse Rate [Right Brachial] 101 H Respiratory Rate 17 Blood Pressure 133/96 H Blood Pressure [Right Arm] 141/93 H Blood Pressure Mean [Right Arm] 109 Blood Pressure Source Blood Pressure Source [Right Arm] Automatic Cuff Blood Pressure Position Blood Pressure Position [Right Arm] Sitting 02 Sat by Pulse Oximetry 99 99 100 Oxygen Delivery Method Room Air 12/01/24 23:05 12/01/24 23:31 12/01/24 23:45 Temperature Temperature Source Pulse Rate 80 91 H 78 Pulse Rate [Right Brachial] Respiratory Rate Blood Pressure 145/77 H 132/75 Blood Pressure [Right Arm] Blood Pressure Mean [Right Arm] Blood Pressure Source Blood Pressure Source [Right Arm] Blood Pressure Position Blood Pressure Position [Right Arm] 02 Sat by Pulse Oximetry 99 100 100 Oxygen Delivery Method Room Air 12/02/24 00:00 12/02/24 00:29 Temperature 98.3 F Temperature Source Oral Pulse Rate 77 94 H Pulse Rate [Right Brachial] Respiratory Rate 18 Blood Pressure 133/85 135/85 Blood Pressure [Right Arm] Blood Pressure Mean [Right Arm] Blood Pressure Source Automatic Cuff Blood Pressure Source [Right Arm] Blood Pressure Position Sitting Blood Pressure Position [Right Arm] 02 Sat by Pulse Oximetry 100 Oxygen Delivery Method Room Air Lab Data Lab Results 12/01/24 21:33: Urine Color Yellow, Urine Appearance Clear, Urine pH 6.5, Ur Specific [place] 1.025, Urine Protein Negative, Urine Glucose (UA) Negative, Urine Ketones Negative, Urine Blood Trace-i, Urine Nitrate Negative, Urine Bilirubin Negative, Urine Urobilinogen 0.2, Ur Leukocyte Esterase Trace, Urine RBC None, Urine WBC 3-5, Ur Squamous Epith Cells 5-10, Urine Bacteria 3+ 12/01/24 21:46: WBC 8.2 D, RBC 4.64, Hgb 13.2, Hct 39.2, MCV 84.5, MCH 28.4, MCHC 33.7, RDW 13.3, Plt Count 320, MPV 9.7, Neut % (Auto) 59.1, Lymph % (Auto) 32.3, [place] % (Auto) 6.7, Eos % (Auto) 1.2, Baso % (Auto) 0.6, Neut # (Auto) 4.8, Lymph # (Auto) 2.7, [place] # (Auto) 0.6, Eos # (Auto) 0.1, Baso # (Auto) 0.1, Sodium 138, Potassium 3.8, Chloride 106, Carbon Dioxide 22, Anion Gap 13.8, BUN 5 L, Creatinine 0.40 L, Estimated Creat Clear 221, Estimated GFR 198, Est GFR ( Amer) 239 D, Glucose 90, Calcium 9.2, Total Bilirubin 0.4, AST 29, ALT 22, Alkaline Phosphatase 68, Total Protein 7.6, Albumin 4.4, Globulin 3.2, Albumin/Globulin Ratio 1.4, HCG, Quant 59722 H, HCV Ab SEAN w/Rflx PCR Qn Negative, HIV Ag/Ab Combo Qual Negative Orders (Tests/Meds): ED MEDICATIONS Discontinued Medications Generic Name Dose Route Start Last Admin Trade Name Freq PRN Reason Stop Dose Admin Acetaminophen 1,000 mg 12/01/24 22:03 12/01/24 22:09 Acetaminophen 1,000mg/100ml Vial IV 12/01/24 22:04 1,000 mg ONCE ONE Administration Nitrofurantoin Macrocrystals 100 mg 12/01/24 23:22 12/01/24 23:37 Nitrofurantoin 100mg Capsule PO 12/01/24 23:23 100 mg ONCE ONE Administration ORDERS Category Date Time Status CBC w/Auto Diff [Complete Blood Count Auto Diff] Stat Lab 12/01/24 21:46 Completed CMP [Comprehensive Metabolic Panel] Stat Lab 12/01/24 21:46 Completed HCG,Quantitative Stat Lab 12/01/24 21:46 Completed HIV Combo Stat Lab 12/01/24 21:46 Completed Hepatitis C Ab Qual. W/ RFX Stat Lab 12/01/24 21:46 Completed UA [Urinalysis and Microscopic] Stat Lab 12/01/24 21:33 Completed Urine Culture Stat Micro 12/01/24 21:33 Received US OB transvaginal Stat Ultrasound 12/01/24 22:03 Completed Medical Decision Narrative: In summary patient is a 24-year-old female with past medical history described above who presents emergency department for evaluation of abdominal pain. Patient is hemodynamically stable nontoxic-appearing arrival, afebrile. Differential includes threatened miscarriage, urinary tract infection, torsion, among others. Workup be conducted with hematologic labs, quantitative hCG, transvaginal ultrasound. Initial inventions include Tylenol. Initial workup reviewed by me, no significant leukocytosis, no anemia, no WALTER or critical electrolyte abnormality. Urinalysis interpreted by me and is equivocal for nitrate negative infection although not terribly convincing there is bacteria which will require treatment given status with Macrobid. Transvaginal ultrasound pending at time of transition of care to the oncoming physician, Dr. Kemp. Kemp: Upon my assumption of care patient is stable and resting comfortably. I agree with the assessment and plan from Dr. Silva. Transvaginal ultrasound was reviewed and demonstrates a live intrauterine with subchorionic hematoma. EGA 10 weeks 6 days. Left corpus luteum cyst. No evidence of torsion or other acute process. On reassessment patient is resting comfortably and appropriate for discharge at this time. We discussed her imaging findings and she is reassured. We also discussed her urinary findings. She received a dose of Macrobid in the ER prior to discharge and was prescribed Macrobid for outpatient treatment of asymptomatic bacteriuria. Patient was given instructions on symptomatic management, follow up instructions with OB, and return precautions for the emergency department. Patient indicated understanding and was discharged in stable condition. Critical Care <Beka Silva MD - Last Filed: 12/01/24 23:14> Critical Care Time Critical Care Time: No
[2024-12-01 22:09] LABS: Basophils # 0.1 K/mm3 (0-0.2); Basophils % 0.6 % (0.1-2.0); Eosinophils # 0.1 K/mm3 (0.0-0.4); Eosinophils % 1.2 % (0.1-12.0); Hematocrit 39.2 % (37.0-47.0); Hemoglobin 13.2 g/dL (12.2-16.2); Lymphocytes # 2.7 K/mm3 (0.7-4.5); Lymphocytes % 32.3 % (10-50); Mean Corpuscular HGB Conc 33.7 g/dL (31.8-35.4); Mean Corpuscular Hemoglobin 28.4 pg (27.0-31.2); Mean Corpuscular Volume 84.5 fl (81-99); Mean Platelet Volume 9.7 fl (7.4-10.4); Monocytes # 0.6 K/mm3 (0.1-1.0); Monocytes % 6.7 % (1.7-9.3); Neutrophils # 4.8 K/mm3 (1.8-7.8); Neutrophils % 59.1 % (37.0-80.0); Platelet Count 320 K/mm3 (142-424); Red Blood Count 4.64 M/mm3 (4.20-5.40); Red Cell Distribution Width 13.3 % (11.5-17.5); White Blood Count 8.2 K/mm3 (4.8-10.8)
[2024-12-01] MEDS: ACETAMINOPHEN 1,000MG/100ML VIAL 1000 MG IV (22:09)
[2024-12-01 22:16] LABS: Albumin Level 4.4 g/dl (3.5-5.0); Chloride 106 mmol/L (98-107); Sodium 138 mmol/L (136-145)
[2024-12-01 22:17] LABS: Potassium 3.8 mmoL/L (3.5-5.1)
[2024-12-01 22:19] LABS: Alanine Aminotransferase 22 U/L (12-78); Anion Gap 13.8 mEq/L (5-15); Aspartate Amino Transferase 29 U/L (14-36); Blood Urea Nitrogen 5 mg/dl (7-17); Carbon Dioxide 22 mmol/L (22.0-30.0); Creatinine Clearance Estimated 221 mL/min (50-200); Estimated Glomerular Filt Rate 198 ml/min (>60); GFR (African American) 239 ML/MIN (>60)
[2024-12-01 22:20] LABS: Albumin/Globulin Ratio 1.4 (1.1-1.8); Alkaline Phosphatase 68 U/L (38-126); Bilirubin,Total 0.4 mg/dl (0.2-1.3); Calcium 9.2 mg/dl (8.4-10.2); Globulin 3.2 g/dL (1.3-3.2); Glucose 90 mg/dl (74-100); Total Protein,Serum 7.6 g/dl (6.3-8.2)
[2024-12-01 22:36] LABS: Microscopic, Urine URINE MICROSCOPIC (MICROSCOPIC)
[2024-12-01 22:38] LABS: Appearance,Urine CLEAR (Clear); Bilirubin,Urine Negative (Negative); Blood, Urine TRACE-I (Negative); Color,Urine YELLOW (Yellow); Glucose,Urine (UA) Negative (Negative); Ketones,Urine Negative (Negative); Leukocyte Esterase,Urine TRACE (Negative); Nitrate,Urine Negative (Negative); PH,Urine 6.5 (5.0-8.5); Protein,Urine Negative (Negative); Specific Gravity, Urine 1.025 (1.005-1.030); Urobilinogen,Urine 0.2 EU/dl (0.2)
[2024-12-01 22:57] LABS: Bacteria,Urine 3+ /lpf
[2024-12-01 23:05] VITALS: BP 145/77; PULSE 80; O2SAT 99
[2024-12-01 23:09] LABS: HIV Combo NEGATIVE (Negative)
[2024-12-01 23:17] LABS: Hepatitis C Ab Qual. W/ RFX NEGATIVE (Negative)
[2024-12-01 23:30] LABS: HCG,Quantitative 57817 mIU/ml (0-5.42)
[2024-12-01 23:31] VITALS: BP 132/75; PULSE 91; O2SAT 100
[2024-12-01] MEDS: NITROFURANTOIN 100MG CAPSULE 100 MG PO (23:37)
[2024-12-01 23:45] VITALS: PULSE 78; O2SAT 100
[2024-12-02] VITALS: BP 133/85; PULSE 77; O2SAT 100
[2024-12-02 00:29] VITALS: BP 135/85; PULSE 94; RESP 18; TEMP 36.8; O2SAT 100
== END 2024-12-02 00:32 | disposition home or self-care (01) ==
PROVIDERS: Emergency Provider Emergency Medicine; PCP Physician Assistant
DX: R82.71 Bacteriuria (principal); O26.899 Other specified pregnancy related conditions, unspecified trimester; O41.8X10 Other specified disorders of amniotic fluid and membranes, first trimester, not applicable or unspecified; R10.32 Left lower quadrant pain; Z3A.11 11 weeks gestation of pregnancy
CPT/HCPCS: 76817; 80053; 81001; 84702; 85025; 86803; 87086; 87389; 96374; 99284; J0131

== ENCOUNTER 2024-12-18 15:14 | Outpatient (CLI) | payer OTHER, SELFPAY ==
[2024-12-18 16:02] LABS: Basophils % 0.7 % (0.1-2.0); Eosinophils # 0.1 Kmm3 (0.0-0.4); Eosinophils % 1.3 % (0.1-12.0); Hematocrit 34.7 % (37.0-47.0); Hemoglobin 11.6 g/dL (12.2-16.2); Lymphocytes # 1.6 K/mm3 (0.7-4.5); Lymphocytes % 26.4 % (10-50); Mean Corpuscular HGB Conc 33.4 g/dL (31.8-35.4); Mean Corpuscular Hemoglobin 28.2 pg (27.0-31.2); Mean Corpuscular Volume 84.4 fl (81-99); Mean Platelet Volume 10.4 fl (7.4-10.4); Monocytes # 0.4 K/mm3 (0.1-1.0); Monocytes % 6.2 % (1.7-9.3); Neutrophils % 65.2 % (37.0-80.0); Nucleated Red Blood Cells # 0 10^3/uL; Nucleated Red Blood Cells % 0 %; Platelet Count 272 K/mm3 (142-424); Red Blood Count 4.11 M/mm3 (4.20-5.40); Red Cell Distribution Width 13.7 % (11.5-17.5); Red Cell Distribution Width-SD 41.9 fL; White Blood Count 6.1 K/mm3 (4.8-10.8)
[2024-12-18 17:17] LABS: HIV Combo NEGATIVE (Negative)
[2024-12-18 17:26] LABS: Hepatitis C Ab Qual. W/ RFX NEGATIVE (Negative)
[2024-12-19 05:27] LABS: Hepatitis B Surface Antigen Negative (Negative)
[2024-12-19 06:57] LABS: RPR W/RFX Titers Nonreactive (Nonreactive)
[2024-12-19 07:14] LABS: Rubella Antibodies, IgG 4.31 index (Immune >0.99)
== END 2024-12-18 23:59 | disposition home or self-care (01) ==
LOC: LAB 15:15
PROVIDERS: PCP Physician Assistant; Visit Provider Obstetrics & Gynecology
DX: Z34.91 Encounter for supervision of normal pregnancy, unspecified, first trimester (principal)
CPT/HCPCS: 36415; 85025; 86592; 86762; 86803; 86850; 87340; 87389

== ENCOUNTER 2024-12-28 13:50 | Outpatient (CLI) | payer OTHER, SELFPAY ==
[2024-12-28 14:12] LABS: Total Volume,Urine 1950 mL (600-1600)
[2024-12-28 14:20] LABS: Total Protein 24 Hour,Urine 215 mg/24 hr (40-90)
== END 2024-12-28 23:59 | disposition home or self-care (01) ==
LOC: LAB 13:51
PROVIDERS: PCP Physician Assistant; Visit Provider Obstetrics & Gynecology
DX: O16.2 Unspecified maternal hypertension, second trimester (principal); Z3A.15 15 weeks gestation of pregnancy
CPT/HCPCS: 84155

== ENCOUNTER 2025-02-02 10:10 | Outpatient (CLI) | payer OTHER, SELFPAY ==
--- NOTE | 2025-02-02 10:00 | US_ITS ---
PROCEDURE: US OB /MATERNAL DETAIL CLINICAL INDICATION: Schedule in 2wks, 20 wk anatomy scan COMPARISON: US US OB TRANSVAGINAL from 11/29/2024 US US OB TRANSVAGINAL from 12/01/2024 FINDINGS: Transabdominal sonographic images of the pelvis were obtained. From her established due date she is 20 weeks 1 day. Single viable intrauterine gestation. Breech position. Placenta: Posteriorplacenta grade 1. There is an average amount of fluid. The cervix appears satisfactory. Closed and measuring 3.61 cm in length. Complete survey performed and was unremarkable on the submitted images as in PACS. No discrete anomalies identified on survey imaging by technologist. Active fetus. Three-vessel cord with satisfactory umbilical cord insertion. 4- chamber heart noted. S[place], aortic arch, LVOT, RVOT, three-vessel view appear normal. Survey of brain & ventricles Unremarkable. Cerebellum, thalamus, choroid plexus, cisterna magna appear normal. Face and neck survey unremarkable. Profile, nasion, lips and nose appeared normal. Diaphragm and chest views unremarkable. Abdomen: Both kidneys noted and unremarkable. Stomach and bladder noted and satisfactory. Spine: Survey of the spine satisfactory with no anomalies identified nor imaged. Cervical, thoracic, lower spine appear normal. The lower spine was not completely viewed due to position. Both arms and legs noted. Amniotic Fluid: Adequate. MVP 5.16 cm Measurements: Average ultrasound age 20weeks 4days. Estimated due date by ultrasound age 1006/18/2025. Estimated weight 375g BPD = 20weeks 2days HC = 19weeks 6days AC = 21weeks 2days FL = 20weeks 3days Growth Percentile= 79 Heart Rate = 142bpm Cerebellum = 19weeks 5days Humerus = 20weeks 4days HC/AC is 1.07 FL/BPD is 0.71 FL/AC is 0.21 IMPRESSION: 1. Viable fetus in the breech presentation with a posterior placenta grade 1. 2. The fluid is within normal limits with an MVP 5.16 cm. 3. Anatomical scan appears normal. 4. Spinal views were incomplete due to position however they appear normal. Would suggest a repeat scan in 2-3 weeks. 5. biometry is consistent with the dates. Dictated by: Ruddy Pulido MD 02/02/2025 18:11 Ruddy Pulido MD in [place] 02/02/2025 18:11
--- OUTSIDE RECORDS SUMMARY | 2025-02-02 10:15 | XMS_ITS | Encounter Summary ---
Author Organization [place] [address] Care Team Providers Care Shale Processing Technician Name Role Phone Nain Velazquez MD Primary Care Provider + [phone] Reason for Visit * Reason Onset Date Comments Appointment Needed 01/01/2025 KRISTY NEEDING R OB Encounter Details Date Type Department Care Team (Late st Contact Info) Description 01/01/2025 Telephone [facility] [address] [place] [phone] Rosario Humphrey, [address] [phone] Appointment Needed (KRISTY NEEDING DEA) Social History Tobacco Use Types Packs/Day Years Used Date Smoking Tobacco: Never Smokeless Tobacco: Never Alcohol Use Standard Drinks/Week Comments Not Currently 0 (1 standard drink = 0.6 oz pur e alcohol) not while AUDIT-C Answer Date Recorded Q1: How often do you have a drink containing alc ohol? Never 10/10/2020 Average Number of Drinks Not on file 021 Frequency of Binge Drinking Not on file 09/30 Sexually Active Control Partners Comments Yes Male Estimated Date of Delivery Comme nts Yes 06/21/2025 Based on last me nstrual period of 09/14/2024 Sex and Gender Information Value Date Recorded Sex Assigned at Not on file Legal Sex Female 9:10 PM EST Gender Identity Not on file Sexual Orientation Not on file documented as of this encounter Miscellaneous Notes * Telephone Encounter - Margoth Sosa - 01/09/2025 1:19 PM EDT Called to RS, LMTCB. Letter sent via mail. * Telephone Encounter - Rosalba Prince - 01/08/2025 8:46 AM EDT 01/08/25 Called to schedule- LMTCB+ Sent to Margoth * Telephone Encounter - Rosalba Prince - 01/02/2025 8:14 AM EDT 01/02/25 Called to schedule- LMTCB * Telephone Encounter - Rosalba Prince - 01/01/2025 9:01 AM EDT KRISTY NEEDING DEA Called to schedule- LMTCB+ Sent Mychart message documented in this encounter Plan of Treatment Not on file documented as of this encounter Visit Diagnoses Not on filedocumented in this encounter Care Teams Shale Processing Technician Relationship Specialty Start Date End Date Nain Velazquez MD [address] [place] [phone] PCP - General Emergency Medicine 10/15/22 documented as of this encounter
--- OUTSIDE RECORDS SUMMARY | 2025-02-02 10:15 | XMS_ITS | Data Portability ---
Author Organization [employer] Address [address] [place] [address] Assessment No assessment recorded. Plan of Treatment Reminders Order Date Submit Date Provider Last Modified By Organization Details Last Modified Time Details Appointments None recorded. Lab None recorded. Referral None recorded. Procedures None recorded. Surgeries None recorded. Imaging None recorded. Medication Orders sertraline 100 mg tablet 2024 025 [facility][id number], [address] [place], [address], 10:27:22 Patient TargetsNo targets recorded. Patient Instructions Encounter Date Encounter Id Patient Instructions Last Modified By Organization Details Last Modified Time 11/02/2024 [id number] learning about mood disorders [email or web address] Not available 11/02/2024 10:27:20 Reason for Referral None Reported. Problems Name Problem SNOMED Code Status Onset Date Resolution Date Notes Provider Name and Address Organization Details Recorded Time Depressive disorder [id number] Active SADIA Kendrick [address] [place] [address], [phone], [employer] 09:58:44 Problem Notes None recorded. Procedures Surgical History Date Name Laterality Status Provider Name and Address Organization Details Recorded Time [facility] [place] [facility] 11/02/2024 10:04:54 Imaging Results None recorded. Procedure Notes None recorded. Medical Equipment None Reported. Allergies No known drug allergies Medications Name Sig Start Date Stop Date Status Note LastModified by Organization Details LastModified Time ondansetron HCl 4 mg tablet TAKE 1 TABLET BY MOUTH EVERY 6 HOURS NEEDED FOR NAUSEA active Not Available Not Available No t Available sertraline 100 mg tablet Take 1 tablet every day by oral route as directed for 90 days, for depressio n. 2024 active Not Available Not Available Not Avai lable ondansetron 4 mg disintegrat ing tablet 4 MG ORALLY EVERY 8 HOURS NEEDED FOR NAUSEA AND VOMITING FOR 4 DAYS 11/01 completed Not Available Not Available Not Available active Not Available Not Avai lable Not Available Vitals Date Recorded Body weight Body mass index (BMI) Body height Oxygen saturation Oxygen saturation in Arterial blood by Pulse oximetry Heart rate Body temperature Systolic blood pressure Diastolic blood pressure Provider Name and Address Organization Details Last Updated DateTime 009714. 3 g 42.6 kg/m2 172.72 cm 98 % 98 % 82 /min 98.8 [degF] 132 mm[Hg] 84 mm[Hg] [email or web address]. 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 11/02/2024 10:04:54 Do You Have An Advance Directive? No Information not available 11/02/2024 Is Your Home Air Conditioned? Yes Information not available 11/02/2024 If You Are , What Was Your Level Of Alcohol Consumption Prior To ? Occasional Information not available 11/02/2024 Do You Wear A Helmet When Biking? Yes Information not available 11/02/2024 Are You Blind Or Do You Have Difficulty Seeing? No Information not available 11/02/2024 What Is Your Level Of Caffeine Consumption? Occasional Information not available 11/02/2024 What Type Of Power Brake Operator Do You Use? None Information not available 11/02/2024 Have You Been To An Area Known To Be High Risk For COVID-19? No Information not available 11/02/2024 Are You Deaf Or Do You Have Serious Difficulty Hearing? No Information not available 11/02/2024 What Type Of Diet Are You Following? REGULAR Information not available 11/02/2024 Who Is Your Employer? [employer] Information not available 11/02/2024 How Many Days Of Moderate To Strenuous Exercise, Like A Brisk Walk, Did You Do In The Last 7 Days? 0 Information not available 11/02/2024 Have There Been Any Changes To Your Family Or Social Situation? No Information no t available 11/02/2024 Are There Any Guns Present In Your Home? No Information not available 11/02/2024 Which Of Your Hands Is Dominant? Right Information not available 11/02/2024 What Is Your Home Situation? Other Information not available 11/02/2024 Do You Have A Medical Power Of Hydraulic Punch Press Operator? No Information not available 11/02/2024 What Was The Date Of Your Most Recent Tobacco Screening? 11/02/2024 Information not available 11/02/2024 Are There Any Occupational Health Risks Where You Work? Yes Information not available 11/02/2024 Do You Have Any Pets? Yes Information not available 11/02/2024 Do You Use Protection During Sex? Usually Information not available 11/02/2024 What Is Your Relationship Status? Single Information not available 11/02/2024 Have You Repeated Any Grades? No Information not available 11/02/2024 Do You Use Your Seat Belt Or Car Seat Routinely? Yes Information not available 11/02/2024 Are You Sexually Active? Yes Information not available 11/02/2024 Do You Have Any Siblings? Yes Information not available 11/02/2024 Do You Have Smoke And Carbon Monoxide Detectors In Your Home? Yes Information not available 11/02/2024 Are You Passively Exposed To Smoke? Yes Information no t available 11/02/2024 Are There Any Smokers In Your House? No Information not available 11/02/2024 Do You Participate In Social Media? Yes Information not available 11/02/2024 What Types Of Sporting Activities Do You Participate In? 0 Information not available 11/02/2024 Do You Use Sunscreen Routinely? No Information not available 11/02/2024 Has Tobacco Cessation Counseling Been Provided? No Information not available 11/02/2024 Have You Recently Traveled Abroad? No Information not available 11/02/2024 Do You Have Difficulty Walking Or Climbing Stairs? No Information not available 11/02/2024 Are You Currently In School? No Information not available 11/02/2024 What Contraceptive Method Was Reported At Start Of This Visit? None Information not available 11/02/2024 Do You Have Any Dietary Restrictions? No Information not available 11/02/2024 What Is Your Reason For Having No Contraceptive Method At Start Of This Visit? Seeking Information not available 11/02/2024 Sex: Unknown Functional Status Question Answer Note LastModified by Organizat ion Details LastModified Time Do you use any illicit or recreational drugs? No Information not available 11/02/2024 Do you or have you ever used any other forms of tobacco or nicotine? No Information not available 11/02/2024 What is your level of alcohol consumption? None Information not available 11/02/2024 Are you currently employed? Yes Information not available 11/02/2024 Are you able to walk? YESWOREST Information not available 11/02/2024 Do you have difficulty doing errands alone? No Information not available 11/02/2024 Are you able to care for yourself? Yes Information n ot available 11/02/2024 Do you have difficulty dressing or bathing? No Information not available 11/02/2024 What is your exercise level? Occasional Information not available 11/02/2024 Mental Status Question Answer Note LastModified by Organizat ion Details LastModified Time Do you feel stressed (tense, restless, nervous, or anxious, or unable to sleep at night)? [id number] Information not available 11/02/2024 Do you have difficulty concentrating, remembering or making decisions? No Information no t available 11/02/2024 Are you or have you been involved with bullying? No Information not available 11/02/2024 Family History Relationship Description Onset Age of this Age Resolved Age Notes LastModified by Organization Details LastModified Time Mother Anxiety disorder Not available 2024 10:04:53 Mother Depressive disorder Not available 2024 10:04:53 Brother Hypertensive disorder Not available 2024 10:04:53 Maternal Grandfather Malignant neoplasm of lung Not available 2024 10:04:53 Maternal Grandfather Hypertensive disorder Not available 2024 10:04:53 Paternal Grandfather Hypertensive disorder Not available 2024 10:04:53 Father Hypertensive disorder Not available 2024 10:04:53 Medical History Condition Response Coronary Artery Disease N Other N Gout N Kidney Stones N Blood Diseases N Hyperthyroidism N Blood Transfusion N Breast Cancer N Emergency room visit since last appointm ent. N COPD N Depression Y Dermatologic Disorders N Hypothyroidism N Lung Disease N Developmental or Behavioral Disorders N Defects or Inherited Disease N Breast Problem N Difficulty Swallowing N Anesthesia Complications N History of STI N Meniere's disease N Anxiety Disorder Y Muscle, Joint, or Bone Problems N Autoimmune disease N Vision or Eye Problems N Arthritis N Polyps N Infertility N Mental Disorder N Congenital Anomalies N Acid Reflux (GERD) N Cancer N Stroke N Neurologic/Epilepsy N Endometriosis N Bladder or Kidney Problems N High Cholesterol N Liver Disease N Organ Transplant N Psychiatric/Mental Health Condition N Fibromyalgia N Dialysis N Schizophrenia N Headaches N Kidney Disease N Allergies/Hayfever N Heart Problems N Ear or Hearing Problems N Hospitalizations N Learning Disorder N Artificial Joints N Thyroid Problems N GI Problems N Acne N ADD/ADHD N Eating Disorder N Anemia N Constipation N Mental Illness N Ovarian Cancer N Diabetes N Bedwetting N Hepatitis/Liver Disease N Tuberculosis N Eczema N Diverticulitis N Abuse/Domestic Violence N Asthma N Trauma/Violence N Substance Abuse N Reflux/GERD N Depression/ depression N Hepatitis N Heart Disease N Pulmonary Embolism N Tourette Syndrome N Chronic Ear Infections N Pre-Eclampsia N Hypertension N Chicken Pox N Autism Spectrum Disorder (ASD) N Osteoporosis N Thrombophilias N Gynecological History Statement/Question Response Abnormal Pap N Flow Moderate Date of LMP 09/14/2024 On BCP's at Conception? N HPV Vaccine Y Duration of Flow (days) 5-7 Most Recent Mammogram Current Control Method Age at Menarche 13 Age at First Child Not yet born Frequency of Cycle (Q days) 26-31 Sexually Active? Y Menses Monthly Y Date of Last Pap Smear LMP Definite Obstetrics History GPAL:G 1 P 0 0 0 0 Immunizations Vaccine Type Date Status Note Provider Nam e and Address Organization Details Recorded Time Hib, unspecified formulation 2 completed Marifer Vice null, [employer] 11/02/2024 10:05:08 Hib, unspecified formulation 3 completed Marifer Vice null, [employer] 11/02/2024 10:05:08 Hib, unspecified formulation 2 completed Marifer Vice null, [employer] 11/02/2024 10:05:08 Hib, unspecified formulation 2 completed Marifer Vice null, [employer] 11/02/2024 10:05:08 IPV 6 completed Marifer Vice null, [employer] 11/02/2024 10:05:08 IPV 2 completed Marifer Vice null, [employer] 11/02/2024 10:05:08 IPV 2 completed Marifer Vice null, [employer] 11/02/2024 10:05:08 IPV 2 completed Marifer Vice null, [employer] 11/02/2024 10:05:08 MMR 6 completed Amrifer Vice null, [employer] 11/02/2024 10:05:08 MMR 3 completed Marifer Vice null, [employer] 11/02/2024 10:05:09 COVID-19, mRNA, LNP-S, PF, 30 mcg/0.3 mL dose 2 completed Marifer Vice null, [employer] 11/02/2024 10:05:09 COVID-19, mRNA, LNP-S, PF, 30 mcg/0.3 mL dose 1 completed Marifer Vice null, [employer] 11/02/2024 10:05:09 COVID-19, mRNA, LNP-S, PF, 30 mcg/0.3 mL dose 1 completed Marifer Vice null, [employer] 11/02/2024 10:05:09 Tdap 3 completed Marifer Vice null, [employer] 11/02/2024 10:05:09 Pneumococcal conjugate PCV 13 3 completed Marifer Vice null, [employer] 11/02/2024 10:05:09 Pneumococcal conjugate PCV 13 2 completed Marifer Vice null, [employer] 11/02/2024 10:05:09 Pneumococcal conjugate PCV 13 3 completed Marifer Vice null, [employer] 11/02/2024 10:05:09 Pneumococcal conjugate PCV 13 2 completed Marifer Vice null, [employer] 11/02/2024 10:05:09 varicella 3 completed Marifer Vice null, [employer] 11/02/2024 10:05:09 varicella 2 completed Marifer Vice null, [employer] 11/02/2024 10:05:09 HPV, unspecified formulation 2 completed Marifer Vice null, [employer] 11/02/2024 10:05:09 HPV, unspecified formulation 2 completed Marifer Vice null, [employer] 11/02/2024 10:05:09 HPV, unspecified formulation 2 completed Marifer Vice null, [employer] 11/02/2024 10:05:09 Hep B, adolescent or pediatric 2 completed Marifer Vice null, [employer] 11/02/2024 10:05:09 Hep B, adolescent or pediatric 2 completed Marifer Vice null, [employer] 11/02/2024 10:05:09 Hep B, adolescent or pediatric 2 completed Marifer Vice null, [employer] 11/02/2024 10:05:09 Hep A, ped/adol, 2 dose 3 completed Marifer Vice null, [employer] 11/02/2024 10:05:09 Hep A, ped/adol, 2 dose 2 completed Marifer Vice null, [employer] 11/02/2024 10:05:09 meningococcal MCV4P 3 completed Marifer Vice null, [employer] 11/02/2024 10:05:09 meningococcal MCV4P 8 completed Marifer Vice null, [employer] 11/02/2024 10:05:09 DTaP, unspecified formulation 3 completed Marifer Vice null, [employer] 11/02/2024 10:05:09 DTaP, unspecified formulation 6 completed Marifer Vice null, [employer] 11/02/2024 10:05:09 DTaP, unspecified formulation 2 completed Marifer Vice null, [employer] 11/02/2024 10:05:09 DTaP, unspecified formulation 2 completed Marifer Vice null, [employer] 11/02/2024 10:05:09 DTaP, unspecified formulation 2 completed Marifer Vice null, [employer] 11/02/2024 10:05:09 Influenza, split virus, quadrivalent, PF 7 completed Marfier Vice null, [employer] 11/02/2024 10:05:09 Past Encounters Encounter ID Performer Location Encounter Start Date Encounter Closed Date Diagnosis/Indication Diagnosis SNOMED-CT Code Diagnosis ICD10 Code Diagnosis Note [id number] SADIA Koch [facility] [address] [place] [address] 11/02/2024 09:56:54 11/02/2024 10:30:02 Depressive disorder 45322329 F32.A Discussed risk and benefits of Zoloft - has been on since age 13 [id number] Z33.1 LMP 09/14/24 so roughly 7 weeks gestation with EDC 06/21/25Ta yesica PNV and sees OB on 11/15/24 Health Concerns Section Related Observation LastModified by Organization Detai ls LastModified Time None Recorded Concern Status LastModified by Organization Details LastModified Time None Recorded Advance Directives Directive N: Payers Insurance Date Sequence Insurance Name Policy Number Policy Barth Covered Member ID Barth Member ID Guarantor Name 11/28/2024 1 [facility] [id number] [facility] Notes Date Note Type Note Provider Name and Address Organization Details Recorded Time 11/02/2024 text/html Patient presents to establish care. History of depression. Originally made appt for refills on Zoloft but also just found out that she is .Has been on Zoloft since she was 13. Works very well for her. No side effects.LMP was 09/14/24. Has OB appt 11/15. Is taking a PNV. Has some morning sickness. SADIA Koch [address] [place] [address], [phone], [facility] [employer] 11/02/2024 11:24:32 OBGyn Episode No OBEpisode recorded.
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
== END 2025-02-02 23:59 | disposition home or self-care (01) ==
LOC: RAD 10:11
PROVIDERS: PCP Physician Assistant; Visit Provider Obstetrics & Gynecology
DX: O10.919 Unspecified pre-existing hypertension complicating pregnancy, unspecified trimester (principal); Z3A.20 20 weeks gestation of pregnancy
CPT/HCPCS: 76811

== ENCOUNTER 2025-02-13 10:37 | Outpatient (CLI) | payer OTHER, SELFPAY ==
--- OUTSIDE RECORDS SUMMARY | 2025-02-13 10:42 | XMS_ITS | Clinical Summary ---
Author Organization [facility] Address [address] [place] [address] Phone Care Team Providers Care Tool Polishing Machine Operator Name Role Phone Nain Velazquez MD Primary Care Provider + [phone] Allergies Active Allergy Reactions Criticality Noted Date [...] on 11/15/2024 oxymetazoline (AFRIN) 0.05 % Nasl Seymour, Non-AerosolIndi cations:Acute rhinitis 1 Seymour by Nasal route 5 times daily as [...] Type Department Care Team Description [facility] [address] [place] [phone] Rosario Humphrey, Appointment Needed (KRISTY NEEDING DEA) 12/01/2024 2:39 PM EDT - 12/01/2024 11:59 PM EDT Hospital Encounter [facility] [address] [place] [address] Encounter for supervision of other normal in first trimester Discharge Disposition: Home or Self Care 12/01/2024 Telephone [facility] [address] [place] [phone] Thea Tamez, KEITH Vaginal Bleeding 12/01/[address] [address] Estela JazminDO Medication Refill 11/16/2024 Telephone [facility] [address] [place] [phone] Jada Jimenez, Clerical Staff Schedule Appointment (NIPT) 11/15/2024 1:00 PM EDT INITIAL VISIT [address] [address] Lisa Fragoso, RN Encounter for supervision of other normal in first trimester (Primary Dx); Nausea and vomiting in 11/15/2024 12:30 PM EDT Clinical Support [address] [address] Cassidy Workman, RT Amenorrhea (Primary [...] Estimated Date of Delivery 11/15/2024 - Present (02/13/2025) 06/21/2025 (set by Lisa Fragoso RN on 11/15/2024 based on Last Menstrual Period on 09/14/2024) Dating Summary Based On KRISTY GA Diff Last Menstrual Period on 09/14/2024 06/21/2025 Working Ultrasound on 11/15/2024 06/24/2025 -3d GA:[id number] Notes Progress Notes - INITIAL PRE VISIT - 11/15/2024 - GA:[id number] 11/15/2024 - [...] of estimated date of delivery: No Thalassemia (Nigerien, English, Mediterranean, or background): MCV less than 80: No Neural tube defect (Meningomyelocele, Spina bifida, or Anencephaly): No Congenital heart defect: Yes (Comment: FOB's paternal cousin - unknown cardiac defect, had multiple cardiac surgeries as a /toddler) Down syndrome: No Jack-Sachs (Ashkenazi Advent, Cajun, [place] Citizen Chelan): No Ab disease (Ashkenazi Advent): No Familial dysautonomia (Ashkenazi Advent): No Sickle cell disease or trait (): No Hemophilia or other blood disorders: No Muscular dystrophy: No Cystic fibrosis: No Rockland's chorea: No Intellectual disability and/or autism: No [...] 2:49 PM EDT Narrative [facility] - 12/01/2024 7:09 PM EDT Test performed using Ana Paula Elecsys electrochemiluminescence immunassay (ECLIA). [facility] IMMUNOLOGY ORDERABLES Final R esult [facility] [address] [facility] , [place] [address] * DRUG CONFIRMATION, BENZODIAZEPINES - URINE (12/01/2024 [...] 2:49 PM EDT 12/01/2024 2:49 PM EDT [facility] DO URINE ORDERABLES Final Result [facility] [address] [facility] , [address] [place] [phone] * BB HISTORY CHECK (12/01/2024 2:49 PM EDT) BB HISTORY CHECK (1) No Previous History 12/01/2024 6:08 PM EDT [facility] Blood VENOUS BLOOD / Unknown Venipuncture / Unknown 12/01/2024 2:49 PM EDT 12/01/2024 2:49 PM EDT [facility] BLOOD BANK ORDERABLES Final R esult Performing Organization Address City/[facility]/ZIP Co de Phone Number [facility] [address] [place] [phone] * SYPHILIS SCREEN WITH REFLEX RPR QUANT (12/01/2024 2:49 PM EDT) Trep Ab Index 0.07 <=0.99 Index Value 12/01/2024 7:54 PM EDT [facility] Comment: < 1.00 - Non-Reactive >=1.00 - Reactive NOTE: All reactive results will be reflexed to Quantitative Non-Treponemal(RPR)test. Blood VENOUS BLOOD / Unknown Venipuncture / Unknown 12/01/2024 2:49 PM EDT 12/01/2024 2:49 PM EDT Result [facility] CHEMISTRY ORDERABLES Final Re sult Performing Organization Address [facility] Co de Phone Number [facility] [address] [facility], [place] [address] * HCV ANTIBODY SCREEN W/ REFLEX (12/01/2024 2:49 PM EDT) Hep C Ab Non-Reacti ve Non-React vianey 12/01/2024 7:01 PM EDT [facility] Comment:No antibodies to HCV detected. Does not exclude possibility of exposure to HCV. Blood VENOUS BLOOD / Unknown Venipuncture / Unknown 12/01/2024 2:49 PM EDT 12/01/2024 2:49 PM EDT Narrative [facility] - 12/01/2024 7:01 PM EDT Test performed using Ana Paula Elecsys electrochemiluminescence immunassay (ECLIA). us Jazmin Roadhouse DO HEMATOLOGY ORDERABLES Final R esult [facility] [address] [facility] , [place] [address] * DRUGS OF ABUSE WITH REFLEX TO [...] pool/amniotic fluid could cause erroneous results. Result [facility] URINE ORDERABLES Final Result Performing Organization Address City/[facility] Co de Phone Number [facility] [address] [facility], [address] [place] [phone] * ABORH (12/01/2024 2:49 PM EDT) [facility] ABOR Int A POS 12/01/2024 7:3 7 PM EDT [facility] Blood VENOUS BLOOD / Unknown Venipuncture / Unknown 12/01/2024 2:49 PM EDT 12/01/2024 2:49 PM EDT Result [facility] BLOOD BANK ORDERABLES Final R esult Performing Organization Address [facility] de Phone Number [facility] [address] [place] [address] * RUBELLA ANTIBODY IGG (12/01/2024 2:49 PM EDT) [facility] Rubella IgG 5.650 Index Value 12/01/2024 9:07 PM EDT [facility] Comment: < 0.90 - Negative No significant [...] 2:49 PM EDT 12/01/2024 2:49 PM EDT [facility] IMMUNOLOGY ORDERABLES Final R esult Performing Organization Address [facility]/ZIP Co de Phone Number [facility] [address] [facility] , [place] [address] * HEPATITIS B SURFACE ANTIGEN (12/01/2024 2:49 PM EDT) [facility] Hep Bs Ag Non-Reacti ve Non-React vianey 12/01/2024 7:09 PM EDT [facility] Comment:HBsAg not detected. Does not exclude possibility of exposure to HBV. Blood VENOUS BLOOD / Unknown Venipuncture / Unknown 12/01/2024 2:49 PM EDT 12/01/2024 2:49 PM EDT Narrative [facility] - 12/01/2024 7:09 PM EDT Test performed using Ana Paula Elecsys electrochemiluminescence immunassay (ECLIA). [facility] CHEMISTRY ORDERABLES Final Re sult Performing Organization Address [facility] Co de Phone Number [facility] [address] [facility] , [place] [address] * CBC WITH DIFF (12/01/2024 2:49 PM EDT) [facility] WBC 6.7 3.7 - 10.3 x10(3)/mcL 12/01/2024 5:53 PM EDT [facility] RBC 4.57 3.90 - 5.20 x10(6)/mcL 12/01/2024 5:53 PM EDT [facility] Hgb 12.7 11.2 - 15.7 g/dL 12/01/2024 5:53 PM EDT [facility] Hct 39.5 34.0 - 45.0 % 12/01/2024 5:53 PM EDT [facility] MCV 86.4 80.0 - 100.0 fL 12/01/2024 5:53 PM EDT [facility] MCH 27.8 26.0 - 34.0 pg 12/01/2024 5:53 PM EDT [facility] MCHC 32.2 30.7 - 35.5 g/dL 12/01/2024 5:53 PM EDT [facility] RDW 13.7 <=14.9 % 12/01/2024 5:53 PM EDT [facility] Platelet 318 155 - 369 x10(3)/mcL 12/01/2024 5:53 PM EDT [facility] MPV 10.2 8.8 - 12.5 fL 12/01/2024 5:53 PM EDT [facility] Neut Percent 68.9 % 12/01/2024 5:53 PM EDT [facility] Comment:Neutrophils equals s egs plus bands Imm Gran% 0.1 % 12/01/2024 5:53 PM EDT [facility] Comment:Automated count of m etamyelocytes, myelocytes and promyelocytes. Lymph Percent 24.0 % 12/01/2024 5:53 PM EDT [facility] [place] Percent 5.6 % 12/01/2024 5:53 PM EDT [facility] Eos Percent 1.0 % 12/01/2024 5:53 PM EDT [facility] Baso Percent 0.4 % 12/01/2024 5:53 PM EDT [facility] Neut # 4.6 1.6 - 6.1 x10(3)/mcL 12/01/2024 5:53 PM EDT [facility] Comment:Neutrophils equals s egs plus bands IMMGRAN# 0.0 0.0 - 0.1 x10(3)/mcL 12/01/2024 5:53 PM EDT [facility] Comment:Automated count of m etamyelocytes, myelocytes and promyelocytes. An absolute IG <0.1 is reported as 0.0. Lymph # 1.6 1.2 - 3.9 x10(3)/mcL 12/01/2024 5:53 PM EDT [facility] [place] # 0.4 0.3 - 0.9 x10(3)/mcL 12/01/2024 5:53 PM EDT [facility] Eos# 0.1 0.0 - 0.5 x10(3)/mcL 12/01/2024 5:53 PM EDT [facility] Baso # 0.0 0.0 - 0.1 x10(3)/mcL 12/01/2024 5:53 PM EDT [facility] Blood VENOUS BLOOD / Unknown Venipuncture / Unknown 12/01/2024 2:49 PM EDT 12/01/2024 2:49 PM EDT [facility] HEMATOLOGY ORDERABLES Final R esult [facility] [employer] [address] [facility] , [place] [address] * ANTIBODY SCREEN IGG (12/01/2024 2:49 PM EDT) Pathologist [facility] ABSC IgG Int Negative 12/01/2024 7:43 PM EDT [facility] Blood VENOUS BLOOD / Unknown Venipuncture / Unknown 12/01/2024 2:49 PM EDT 12/01/2024 2:49 PM EDT [facility] BLOOD BANK ORDERABLES Final R esult Performing Organization Address [facility] Co de Phone Number [facility] [address] [place] [address] * URINE CULTURE (NO STAIN) (12/01/2024 2:49 PM EDT) Pathologist [facility] Culture Multiple bacterial species isolated from urine consistent with urogenital commensal organisms. 12/03/2024 7:24 AM EDT [facility] Urine STRUCTURE OF URINARY TRACT PROPER / Unknown 12/01/2024 2:49 PM EDT 12/01/2024 2:49 PM EDT [facility] MICROBIOLOGY - GENERAL ORDERA BLES Final Result Performing Organization Address City/[facility]/ZIP Co de Phone Number [facility] [address] [facility] , [place] [address] * PN US OB < 14 WEEKS SINGLE OR FIRST GESTATION (11/15/2024 12:28 PM EDT) Anatomical Region Laterality Modality Pelvis Other Narrative 11/16/2024 10:01 AM EDT Viable IUP consistent with LMP Jazmin Palmer DO IMG ORDERABLES Eileen l Result from Last 3 Months Insurance CHOICE [employer] on file [employer] ATTN: WORK[employer] CLAIM [employer]ING [place] [id number] [facility] CHOICE PLUS Care Teams Tool Polishing Machine Operator Relationship Specialty Start Date End Date Nain Velazquez MD [address] [place] [id number] PCP - General Emergency Medicine 10/15/22
--- OUTSIDE RECORDS SUMMARY | 2025-02-13 10:44 | XMS_ITS | Encounter Summary ---
Author Organization [facility] [address] Care Team Providers Care Watchmaker Apprentice Name Role Phone Nain Velazquez MD Primary Care Provider + [phone] Reason for Visit * Reason Onset Date Comments Appointment Needed 01/01/2025 KRISTY NEEDING R OB Encounter Details Date Type Department Care Team (Late st Contact Info) Description 01/01/2025 Telephone [facility] [address] [place] [phone] Rosario Humphrey, [address] [place] [phone] Appointment Needed (KRISTY NEEDING DEA) Social History [...] on filedocumented in this encounter Care Teams Watchmaker Apprentice Relationship Specialty Start Date End Date Nain Velazquez MD [address] [place] [phone] PCP - General Emergency Medicine 10/15/22 documented as of this encounter
[2025-02-13 10:47] VITALS: BMI 47.2
[2025-02-13 11:04] LABS: Microscopic, Urine URINE MICROSCOPIC (MICROSCOPIC)
[2025-02-13 11:12] LABS: Appearance,Urine CLEAR (Clear); Bilirubin,Urine Negative (Negative); Blood, Urine Negative (Negative); Color,Urine YELLOW (Yellow); Glucose,Urine (UA) Negative (Negative); Ketones,Urine Negative (Negative); Leukocyte Esterase,Urine 1+ (Negative); Nitrate,Urine Negative (Negative); Protein,Urine Negative (Negative); Urobilinogen,Urine 0.2 EU/dl (0.2)
[2025-02-13 11:18] VITALS: BP 132/70; PULSE 84; RESP 17; TEMP 37.1; O2SAT 98; BMI 47.2
[2025-02-13 11:30] VITALS: BP 118/78
[2025-02-13 11:39] LABS: Bacteria,Urine 3+ /lpf; Squamous Epithelial Cell,Urine Occasional #/hpf (0-5)
[2025-02-13 11:43] LABS: Creatinine,Urine Random 137 mg/dL (Not Estab.)
[2025-02-13 11:53] LABS: Basophils % 0.4 % (0.1-2.0); Eosinophils # 0.1 Kmm3 (0.0-0.4); Eosinophils % 1.2 % (0.1-12.0); Hematocrit 32.8 % (37.0-47.0); Immature Granulocytes # 0.02 10^3uL; Immature Granulocytes % 0.2 %; Lymphocytes # 1.5 K/mm3 (0.7-4.5); Lymphocytes % 18.4 % (10-50); Mean Corpuscular HGB Conc 33.5 g/dL (31.8-35.4); Mean Corpuscular Hemoglobin 29.2 pg (27.0-31.2); Mean Platelet Volume 9.9 fl (7.4-10.4); Monocytes # 0.5 K/mm3 (0.1-1.0); Monocytes % 5.7 % (1.7-9.3); Neutrophils % 74.1 % (37.0-80.0); Nucleated Red Blood Cells # 0 10^3/uL; Nucleated Red Blood Cells % 0 %; Platelet Count 299 K/mm3 (142-424); Red Blood Count 3.77 M/mm3 (4.20-5.40); Red Cell Distribution Width-SD 47.6 fL
[2025-02-13 12:02] LABS: Chloride 108 mmol/L (98-107)
[2025-02-13 12:03] LABS: Potassium 4.6 mmoL/L (3.5-5.1); Sodium 135 mmol/L (136-145)
[2025-02-13 12:05] LABS: Blood Urea Nitrogen 4 mg/dl (7-17); Creatinine Clearance Estimated 164 mL/min (50-200); Estimated Glomerular Filt Rate 153 ml/min (>60); GFR (African American) 185 ML/MIN (>60)
[2025-02-13 12:06] LABS: Alanine Aminotransferase 25 U/L (12-78); Albumin/Globulin Ratio 1.2 (1.1-1.8); Alkaline Phosphatase 108 U/L (38-126); Anion Gap 11.6 mEq/L (5-15); Aspartate Amino Transferase 41 U/L (14-36); Bilirubin,Total 0.6 mg/dl (0.2-1.3); Calcium 9.9 mg/dl (8.4-10.2); Carbon Dioxide 20 mmol/L (22.0-30.0); Globulin 3.3 g/dL (1.3-3.2); Glucose 91 mg/dl (74-100); Total Protein,Serum 7.3 g/dl (6.3-8.2)
[2025-02-13 12:11] VITALS: BP 138/82
[2025-02-13 12:57] LABS: Uric Acid 3.2 mg/dl (2.5-6.2)
== END 2025-02-13 12:34 | disposition home or self-care (01) ==
LOC: OBOUT 10:40 → OB 10:41
PROVIDERS: Obstetrics & Gynecology; PCP Physician Assistant; Visit Provider Obstetrics & Gynecology
DX: O10.912 Unspecified pre-existing hypertension complicating pregnancy, second trimester (principal); O99.212 Obesity complicating pregnancy, second trimester; E66.9 Obesity, unspecified; Z3A.20 20 weeks gestation of pregnancy
CPT/HCPCS: 36415; 80053; 81001; 82570; 84156; 84550; 85025; 87086; 99212; G0463

== ENCOUNTER 2025-04-04 11:17 | Outpatient (CLI) | payer OTHER, SELFPAY ==
--- OUTSIDE RECORDS SUMMARY | 2025-02-28 14:00 | XMS_ITS | Encounter Summary ---
Author Organization [facility] Address [address] [place] [address] Care Team Providers Care Secret Code Expert Name Role Phone Olive Pa Primary Care Provider [phone] Reason for Referral * Diagnostic Imaging (Routine) - Closed Specialty Diagnoses / Procedures Referred By Cintia potter Referred To Contact Radiology Diagnoses Encounter for routine screening for malformation using ultrasonics HTN in , chronic Obesity in , antepartum , unspecified gestational age Procedures [facility] Diagnostic [place] Kalyan Zimmer DO [address] [place] [address] [place] [address] Phone: tel: fax: [facility] US PER DIAG [facility] [address] [place] [address] Phone: tel: Referral ID Status Reason Start Date Expiration Date Visits Re quested Visits Authorized [id number] Closed 02/06/2025 05/08/2026 1 1 Reason for Visit * Diagnostic Imaging (Routine) - Closed Specialty Diagnoses / Procedures Referred By Cintia potter Referred To Contact Radiology Diagnoses Encounter for routine screening for malformation using ultrasonics HTN in , chronic Obesity in , antepartum , unspecified gestational age Procedures [facility] Kalyan Zimmer DO [address] [place] [address] [place] [address] Phone: tel: fax: [facility] PER DIAG CTR [address] [place] [address] Phone: tel: Referral ID Status Reason Start Date Expiration Date Visits Re quested Visits Authorized [id number] Closed 02/06/2025 05/08/2026 1 1 Encounter Details Date Type Department Care Team (Latest Contact Info) Description 02/28/2025 2:00 PM EDT - 02/28/2025 11:59 PM EDT Hospital Encounter [facility] PER [facility] [address] [place] [address] Kalyan Zimmer, DO [address] [place] [id number] Encounter for routine screening for malformation using [...] Description 05/02/2025 2:45 PM EDT Office Visit [facility]NAL MEDICINE [address] [facility] [address] [place] [address] 05/02/2025 2:45 PM EDT Appointment [facility] PER DIAG CTR [address] [place] [address] documented as of this encounter Procedures Procedure Name Priority Date/Time Associated Diagnosis Comments [facility] Routine 02/28/2025 3:11 PM EDT Encounter for routine screening for malformation using ultrasonics HTN in , chronic Obesity in , antepartum , unspecified gestational age documented in this encounter Results * [facility] (02/28/2025 3:11 PM EDT) Anatomical Region Laterality Modality Ultrasound 02/28/2025 2:47 PM EDT Narrative 02/28/2025 3:23 PM EDT PAT NAME: NAYLA PARKS [facility] REC#: [id number] DA: [id number] PAT GEND: F PAT TYPE: O EXAM NIKI: [id number] REF PHYS KALYAN ZIMMER Comparison Studies There [...] EFW (oz) 9 oz EFW by: Hadlock (PSL-RP-YF-FL) Extended Tibia 37.8 mm 24w 2d 64% Arsalan Fibula 37.1 mm 24w 0d 53% Arsalan Foot 43.8 mm 47% Chitty Radius 33.6 mm 23w 6d 48% Arsalan Ulna 36.8 mm 24w 3d 51% Arsalan Cav. septi pel. tr 6.6 mm Wine [employer]ant 4.9 mm CM 4.2 mm 8% Nicolaides [...] normal IVC: normal 3-vessel view: Appears normal 0-csfvvg-lqhdksx view: Appears normal Rt lung: Appears normal [...] Follow-up scheduled in 4wks. 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 View: Adequate view ========= Liriano . Number of fetuses: 1 Dating ====== Method of dating:based on stated KRISTY GA by prior w + 6 d KRISTY by prior assessment:06/21/2025 Ultrasound examination on:02/28/2025 GA by U/S based upon:AC, BPD, Femur, HC GA by U/S24 w + 3 d KRISTY by U/S:06/17/2025 Assigned:based on stated KRISTY, selected on 02/28/2025 Assigned GA23 w + 6 d Assigned KRISTY:06/21/2025 [id number] d Biometry Standard BPD60.1 mm 24w 4d 68% Hadlock OFD77.0 mm 25w 2d 90% Arsalan HC219.6 mm 24w 0d 38% Hadlock Cerebellum tr25.0 mm 22w 5d 36% Hill AC201.5 mm 24w 5d 70% Hadlock Femur44.3 mm 24w 4d 62% Hadlock Iyzvmud84.6 mm 24w 1d 48% Arsalan HC / AC1.09 CGV785 g 24w 3d 76% Hadlock EFW (lb)1 lb EFW (oz)9 oz EFW by:Hadlock (PEM-YW-IA-FL) Extended Tibia37.8 mm 24w 2d 64% Arsalan Vqhqlg35.1 mm 24w 0d 53% Arsalan Foot43.8 mm 47% Chitty Mhuhat80.6 mm 23w 6d 48% Arsalan Ulna36.8 mm 24w 3d 51% Arsalan Cav. septi pel. tr6.6 mm Vp4.9 mm CM4.2 mm 8% Nicolaides Nasal bone9.5 mm Head / Face / Neck Cephalic index0.78 45% Nicolaides Extremities / Bony Struc FL / BPD0.74 FL / HC0.20 FL / AC0.22 Other Structures MID973 bpm General Evaluation Cardiac activity present. FHR [...] view:Appears normal SVC:normal IVC:normal 3-vessel view:Appears normal 8-tmngxz-qvfdizd view:Appears normal Rt lung:Appears normal Lt lung:normal [...] Structures Uterus / Cervix Cervix:Visualized Approach:Transabdominal Cervical zucriw04.7 mm Ovaries / Tubes / Adnexa Rt [...] Recommendation Follow-up scheduled in 4wks. Coding ======= Description:51275-11 Detailed Doubling Machine Operator: Anitra Randolph RDMS Physician: Nova Saxena MD [...] age documented in this encounter Care Teams Secret Code Expert Relationship Specialty Start Date End Date Olive Pa PA [address] [place] [address] PCP - General 02/27/25 documented as of this encounter
--- OUTSIDE RECORDS SUMMARY | 2025-02-28 14:00 | XMS_ITS | Encounter Summary ---
Author Organization [facility] Address [address] [place] [id number] Care Team Providers Care Air Defense Artillery Officer Name Role Phone Oilve Pa Primary Care Provider [phone] Reason for Referral * Diagnostic Imaging (Routine) - Authorized Specialty Diagnoses / Procedures Referred By Cintia potter Referred To Contact Radiology Diagnoses Abnormal chromosomal and genetic finding on screening mother Chronic hypertension affecting Cystic fibrosis carrier, antepartum Class 3 severe obesity in adult, unspecified BMI, unspecified obesity type, unspecified whether serious comorbidity present Procedures [facility] Nova Saxena MD [address] [facility] [address] [place] [address] Phone: tel: fax: Referral ID Status Reason Start Date Expiration Date V isits Requested Visits Authorized [id number] Authorized 02/28/2025 05/30/2026 1 1 Reason for Visit * Reason Comments CHTN Encounter Details Date Type Department Care Team (Late Contact Info) Description 02/28/2025 2:00 PM EDT Office Visit [facility] MATERNAL MEDICINE [address] [facility] [address] [place] [address] Nova Saxena MD [address] [facility] [address] [place], [place] [id number] Abnormal chromosomal and genetic finding on screening [...] - Follow-up scheduled in 4wks Orders: - [facility]; Future 2. Chronic hypertension affecting [...] and testing at 32wks of Orders: - [facility] [place]; Future 3. Cystic fibrosis carrier, antepartum Assessment & Plan: FOB is negative. Orders: - [facility] [place]; Future 4. Class 3 severe obesity in adult, unspecified BMI, unspecified obesity type, unspecified whether serious comorbidity present - [facility] [place]; Future 5. 23 weeks gestation of Follow [...] 2:45 PM EDT Office Visit [facility] MATERNAL MEDICINE [address] [facility] [address] [place] [address] 05/02/2025 2:45 PM EDT Appointment [facility] US PER DIAG CTR [address] [place] [address] documented as of this encounter Results * [facility] (04/04/2025 9:47 AM EDT) Anatomical Region Laterality Modality Ultrasound 04/04/2025 9:41 AM EDT Narrative 04/04/2025 10:18 AM EDT PAT NAME: NAYLA PARKS [facility] REC#: [id number] DA: [id number] PAT GEND: F PAT TYPE: O EXAM NIKI: [id number] REF PHYS KALYAN ZIMMER Comparison Studies The [...] EFW (oz) 2 oz EFW by: Hadlock ([id number]-[id number]-FL) Extended Cav. septi pel. tr 6.3 mm [...] Normal Heart / Thorax 3-vessel view: Normal 9-szagkk-rdgeqna view: normal Cord insertion: Normal Stomach: Appears [...] here in 4 weeks. Coding ====== Description: 78664-70 Follow Up Rn Clinical Documentation Specialist: Brittny Cazares RDMS Physician: Jean Felipe MD, FACOG Electronically signed by: Jean Felipe MD, FACOG at: 10:18 Procedure Note Mickey Felipe MD - 04/04/2025 PAT NAME: NAYLA PARKS MED REC#: [id number] DA: [id number] PAT GEND: F PAT TYPE: O EXAM NIKI: [id number] REF PHYS KALYAN ZIMMER Comparison Studies The findings of this study are compared to the prior ultrasound studydated 04/04/25. Patient Status Outpatient Indication ======== NIPT-No results, CF-carrier, chronic hypertension, MO BMI 48 Maternal Assessment Kvpbcy574 cm Height (ft)5 ft Height (in)6 in Bkclnm597 kg Weight (lb)295 lb BMI47.98 kg/m Method ======= Transabdominal ultrasound examination. View: Limited by patient bodyhabitus ========= Liriano . Number of fetuses: 1 Dating ====== GA by prior [id number] w + 6 d KRISTY by prior [...] GA28 w + 6 d Assigned KRISTY:06/21/2025 [id number] d Biometry Standard BPD72.1 mm 29w 0d 40% Hadlock OFD99.8 mm 32w 2d >99% Arsalan HC273.5 mm 29w 6d 47% Hadlock Cerebellum tr36.1 mm 29w 6d 87% Hill AC254.1 mm 29w 4d 66% Hadlock Femur56.1 mm 29w 4d 54% Hadlock Zeeaddg88.9 mm 29w 6d 69% Arsalan HC / AC1.08 EFW1,411 g 29w 1d 62% Hadlock EFW (lb)3 lb EFW (oz)2 oz EFW by:Hadlock (FRG-JS-BL-FL) Extended Cav. septi pel. tr6.3 mm CM4.3 mm 2% Nicolaides Head / Face / Neck Cephalic index0.72 2% Nicolaides Extremities / Bony Struc FL / BPD0.78 FL / HC0.21 FL / AC0.22 Other Structures NLJ348 bpm General Evaluation Cardiac activity present. FHR 145 bpm. movements present. Presentation cephalic. Placenta Placental site: posterior. Amniotic fluid Amount of AF: normal. MVP 4.8 cm. CRISTIANE 15.0 cm. Q1 4.5 cm,Q2 4.8 cm, Q3 3.2 cm, Q4 2.6 cm. Anatomy Cranium:Normal Cavum septi pellucidi:Normal Cerebellum:Normal Cisterna magna:Normal Lips:Normal Profile:Normal Nose:Normal 4-chamber view:Appears normal RVOT view:Normal LVOT view:Normal Heart / Thorax 3-vessel view:Normal 5-tjmxii-opttmbf view:normal Cord insertion:Normal Stomach:Appears normal Kidneys:Appears normal Bladder:Appears normal Gender:female Wants to know gender:yes Maternal Structures Uterus / Cervix Cervical hoaojd78.7 mm Doppler Arterial Umbilical A PI1.11 73% [...] scheduled here in 4 weeks. Coding ====== Description:[id number] Follow Up Rn Clinical Documentation Specialist: Brittny Cazares RDMS Physician: Jean Felipe MD, FACOG Electronically signed by: Jean Felipe MD, SANDRAOG at: 10:18 us [facility] Final Res ult documented in this [...] present documented in this encounter Care Teams Air Defense Artillery Officer Relationship Specialty Start Date End Date Olive Pa PA [address] [place] [address] PCP - General 02/27/25 documented as of this encounter
--- OUTSIDE RECORDS SUMMARY | 2025-04-04 09:15 | XMS_ITS | Encounter Summary ---
Author Organization [facility] Address [address] [place] [address] Care Team Providers Care Accountant Cost Name Role Phone Olive Pa Primary Care Provider [phone] Reason for Referral * Diagnostic Imaging (Routine) - Authorized Specialty Diagnoses / Procedures Referred By Cintia potter Referred To Contact Radiology Diagnoses Abnormal chromosomal and genetic finding on screening mother Chronic hypertension affecting Cystic fibrosis carrier, antepartum Class 3 severe obesity in adult, unspecified BMI, unspecified obesity type, unspecified whether serious comorbidity present Procedures [facility] [place] Nova Saxena MD [address] [place] [address] Phone: tel: fax: Referral ID Status Reason Start Date Expiration Date V isits Requested Visits Authorized [id number] Authorized 02/28/2025 05/30/2026 1 1 Reason for Visit * Diagnostic Imaging (Routine) - Authorized Specialty Diagnoses / Procedures Referred By Cintia potter Referred To Contact Radiology Diagnoses Abnormal chromosomal and genetic finding on screening mother Chronic hypertension affecting Cystic fibrosis carrier, antepartum Class 3 severe obesity in adult, unspecified BMI, unspecified obesity type, unspecified whether serious comorbidity present Procedures [facility] [place] Nova Saxena MD [address] [place] [address] Phone: tel: fax: Referral ID Status Reason Start Date Expiration Date V isits Requested Visits Authorized [id number] Authorized 02/28/2025 05/30/2026 1 1 Encounter Details Date Type Department Care Team (Latest Contact Info) Description 04/04/2025 9:15 AM EDT Hospital Encounter [facility] US PER DIAG CTR [address] [facility] [address] Abnormal chromosomal and genetic finding on screening mother; Chronic hypertension affecting ; Cystic fibrosis carrier, antepartum; Class 3 severe obesity in adult, unspecified BMI, unspecified obesity type, unspecified whether serious comorbidity present Social History Tobacco Use Types Packs/Day Years [...] on file documented as of this encounter Plan of Treatment Upcoming Encounters Date Type Department Care Team (Late st Contact Info) Description 05/02/2025 2:45 PM EDT Office Visit [facility] MATERNAL MEDICINE [address] [facility] [address] [place] [address] 05/02/2025 2:45 PM EDT Appointment [facility] US PER DIAG [facility] [address] [facility] [place] [address] documented as of this encounter Procedures Procedure Name Priority Date/Time Associated Diagnosis Comments [facility] Routine 04/04/2025 9:47 AM EDT Abnormal chromosomal and genetic finding on screening mother Chronic hypertension affecting Cystic fibrosis carrier, antepartum Class 3 severe obesity in adult, unspecified BMI, unspecified obesity type, unspecified whether serious comorbidity present documented in this encounter Results * [facility] (04/04/2025 9:47 AM EDT) Anatomical Region Laterality Modality Ultrasound 04/04/2025 9:41 AM EDT Narrative 04/04/2025 10:18 AM EDT PAT NAME: NAYLA PARKS [facility] REC#: [id number] DA: [id number] PAT GEND: F PAT TYPE: O EXAM NIKI: [id number] REF PHYS KALYAN MARROQUIN Comparison Studies The [...] EFW (oz) 2 oz EFW by: Hadlock ([id number]-YN-[id number]-FL) Extended Cav. septi pel. tr 6.3 mm [...] Normal Heart / Thorax 3-vessel view: Normal 1-ankqwl-jzjvktr view: normal Cord insertion: Normal Stomach: Appears [...] here in 4 weeks. Coding ====== Description: 20458-87 Follow Up Fuel Operator: Brittny Cazares RDMS Physician: Jean Felipe MD, FACOG Electronically signed by: Jean Felipe MD, FACOG at: 10:18 Procedure Note Mickey Felipe MD - 04/04/2025 PAT NAME: NAYLA PARKS [facility] REC#: [id number] DA: [id number] PAT GEND: F PAT TYPE: O EXAM NIKI: [id number] REF PHYS KALYAN MARROQUIN Comparison Studies The findings of this study are compared to the prior ultrasound studydated 04/04/25. Patient Status Outpatient Indication ======== NIPT-No results, CF-carrier, chronic hypertension, [place] BMI 48 Maternal Assessment Cpbnyi529 cm Height (ft)5 ft Height (in)6 in Jgwzzz142 kg Weight (lb)295 lb BMI47.98 kg/m Method ======= Transabdominal ultrasound examination. View: Limited by patient bodyhabitus ========= Liriano . Number of fetuses: 1 Dating ====== GA by prior w + 6 d [...] Hadlock Femur56.1 mm 29w 4d 54% Hadlock Iuipetb59.9 mm 29w 6d 69% Arsalan HC / AC1.08 EFW1,411 g 29w 1d 62% Hadlock EFW (lb)3 lb EFW (oz)2 oz EFW by:Hadlock (RNN-IY-EL-FL) Extended Cav. septi pel. tr6.3 mm CM4.3 mm 2% Nicolaides Head / Face / Neck Cephalic index0.72 2% Nicolaides Extremities / Bony Struc FL / BPD0.78 FL / HC0.21 FL / AC0.22 Other Structures TEA243 bpm General Evaluation Cardiac activity present. FHR 145 bpm. movements present. Presentation cephalic. Placenta Placental site: posterior. Amniotic fluid Amount of AF: normal. MVP 4.8 cm. CRISTIANE 15.0 cm. Q1 4.5 cm,Q2 4.8 cm, Q3 3.2 cm, Q4 2.6 cm. Anatomy Cranium:Normal Cavum septi pellucidi:Normal Cerebellum:Normal Cisterna magna:Normal Lips:Normal Profile:Normal Nose:Normal 4-chamber view:Appears normal RVOT view:Normal LVOT view:Normal Heart / Thorax 3-vessel view:Normal 8-nymwxg-egjyblh view:normal Cord insertion:Normal Stomach:Appears normal Kidneys:Appears normal [...] scheduled here in 4 weeks. Coding ====== Description:53734-81 Follow Up Fuel Operator: Brittny Cazares RDMS Physician: Jean Felipe MD, [...] present documented in this encounter Care Teams Accountant Cost Relationship Specialty Start Date End Date Oliev Pa PA [address] [place] [address] PCP - General 02/27/25 documented as of this encounter
--- OUTSIDE RECORDS SUMMARY | 2025-04-04 09:15 | XMS_ITS | Encounter Summary ---
Author Organization [facility] Address [address] [place] [id number] Care Team Providers Care High School Music Director Name Role Phone Olive Pa Primary Care Provider [phone] Reason for Referral * Diagnostic Imaging (Routine) - Authorized Specialty Diagnoses / Procedures Referred By Cintia potter Referred To Contact Radiology Diagnoses Chronic hypertension affecting Abnormal chromosomal and genetic finding on screening mother , unspecified gestational age Morbid obesity with BMI of 45.0-49.9, adult Procedures [facility] Mickey Felipe MD [address] [facility] [address] [place] [address] Phone: tel: fax: [facility] US PER DIAG CTR [address] [place] [address] Phone: tel: Referral ID Status Reason Start Date Expiration Date V isits Requested Visits Authorized [id number] Authorized 04/04/2025 07/04/2026 1 1 Reason for Visit * Reason Comments [place]; CHTN; CF carrier Encounter Details Date Type Department Care Team ([facility] Contact Info) Description 04/04/2025 9:15 AM EDT Office Visit [facility] MEDICAL [facility] MATERNAL MEDICINE [address] [facility] [address] [place] [phone] Miceky Felipe MD [address] [facility] [address] [place] [address] Chronic hypertension affecting (Primary Dx); Abnormal chromosomal [...] notices any decreased movement. Orders: - [facility]; Future 2. Abnormal chromosomal and genetic finding on screening mother - [facility]; Future 3. , unspecified gestational age - [facility]; Future 4. Morbid obesity with BMI of 45.0-49.9, adult - [facility]; Future Follow Up Return in [...] or CVS. Mickey Felipe MD Maternal Medicine, [facility] Diagnostic [place] 04/04/2025 documented in this encounter Plan of Treatment Upcoming Encounters Date Type Department Care Team (Late st Contact Info) Description 05/02/2025 2:45 PM EDT Office Visit [facility] MATERNAL MEDICINE [address] [place] [address] 05/02/2025 2:45 PM EDT Appointment [facility] US PER DIAG CTR [address] [place] [address] Scheduled Orders Name Type Priority Associated Diagnoses Orde r Schedule [facility] Imaging Routine Chronic hypertension affecting [...] adult documented in this encounter Care Teams High School Music Director Relationship Specialty Start Date End Date Olive Pa PA [address] [place] [address] PCP - General 02/27/25 documented as of this encounter
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
--- OUTSIDE RECORDS SUMMARY | 2025-04-04 11:21 | XMS_ITS | Encounter Summary ---
Author Organization [facility] Address [address] [place] [phone] Care Team Providers Care Printer Slotter Feeder Name Role Phone Olive Pa Primary Care Provider [phone] Encounter Details Date Type Department Care Team (Latest Contact Info) Description 04/04/2025 Travel Social History Tobacco Use Types Packs/Day Years [...] Description 05/02/2025 2:45 PM EDT Office Visit [facility] MATERNAL MEDICINE [address] [facility] [address] [place] [address] 05/02/2025 2:45 PM EDT Appointment [facility] [address] [place] [address] documented as of this encounter Visit Diagnoses Not on filedocumented in this encounter Care Teams Printer Slotter Feeder Relationship Specialty Start Date End Date Olive Pa PA [address] [place] [address] PCP - General 02/27/25 documented as of this encounter
--- OUTSIDE RECORDS SUMMARY | 2025-04-04 11:21 | XMS_ITS | Clinical Summary ---
Author Organization [facility] Address [address] [place] [address] Care Team Providers Care Bilingual Loan Processor Name Role Phone Olive Pa Primary Care Provider [phone] Allergies Active Allergy Reactions Criticality Noted Date Comments Shellfish Allergy Nausea And Vomiting Low Face gets very red Medications MV-Min-Fe Fum-FA-DHA ( 1 PO) Take 1 tablet by mouth Daily. Active labetalol (NORMODYNE) 200 MG tablet Take 1 tablet by mouth Every 12 (Twelve) Hours. 01/16/2025 Active sertraline (ZOLOFT) 100 MG tablet Take 1 tablet by mouth Daily. 02/24/2014 Active ondansetron (ZOFRAN) 4 MG tablet Take 1 tablet by mouth Every 6 (Six) Hours As Needed. for nausea 12/01/2024 Active BABY ASPIRIN PO Take 2 tablets by mouth Daily. Active vitamin B-6 (PYRIDOXINE) 50 MG tablet Take 1 tablet by mouth Daily. Active doxylamine (UNISOM) 25 MG tablet Take 1 tablet by mouth At Night As Needed for Sleep or Nausea. Active famotidine (PEPCID) 10 MG tablet Take 1 tablet by mouth 2 (Two) Times a Day. Active Active Problems Problem Noted Date Diagnosed Date Morbid obesity with BMI of 45.0-49.9, adult 08/01/2025 04/04/2025 Abnormal chromosomal and gen etic finding on screening mother 02/28/2025 Assessment & Plan (02/28/2025 3:24 PM EDT): Anatomy survey today complete and appears within normal limits. - Follow-up scheduled in 4wks Chronic hypertension affecting 025 Assessment & Plan (04/04/2025 10:05 AM EDT): Patient returns today for follow-up for complicated [...] immediately if she notices any decreased movement. Assessment & Plan (02/28/2025 3:26 PM EDT): Pt is currently taking Labetalol 200mgs BID and ASA 81mgs BID. Her BP is 125/69. Baseline 24hr urine protein is normal at 215mgs/day. Per record, baseline CMP and CBC are normal as well. - Follow-up scheduled in 4wks for growth - Pt will need serial growth ultrasounds and testing at 32wks of Obesity 02/28/2025 Cystic fibrosis carrier, antepartum 02/28/2025 Assessment & Plan (02/28/2025 3:27 PM EDT): FOB is negative. Estimated Date of Delivery Comme nts Yes 06/21/2025 Date entered amanda or to episode creation Encounters Date Type Department Care Team Description 04/04/2025 9:15 AM EDT Office Visit [facility] MATERNAL MEDICINE [address] [facility] [address] [place] [address] Mickey Felipe MD Chronic hypertension affecting (Primary Dx); Abnormal chromosomal and genetic finding on screening mother; , unspecified gestational age; Morbid obesity with BMI of 45.0-49.9, adult 04/04/2025 9:15 AM EDT Hospital Encounter [facility] PER DIAG CTR [address] [place] [address] Abnormal chromosomal and genetic finding on screening mother; Chronic hypertension affecting ; Cystic fibrosis carrier, antepartum; Class 3 severe obesity in adult, unspecified BMI, unspecified obesity type, unspecified whether serious comorbidity present 04/04/2025 Travel 02/28/2025 2:00 PM EDT - 02/28/2025 11:59 PM EDT Hospital Encounter [facility] US PER DIAG CTR [address] [place] [id number] Kalyan Zimmer, Encounter for routine screening for malformation using ultrasonics; HTN in , chronic; Obesity in , antepartum; , unspecified gestational age Discharge Disposition: Home or Self Care 02/28/2025 2:00 PM EDT Office Visit [facility] MATERNAL MEDICINE [address] [facility] [address] [place] [address] Nova Saxena MD Abnormal chromosomal and genetic finding on screening mother (Primary Dx); Chronic hypertension affecting ; Cystic fibrosis carrier, antepartum; Class 3 severe obesity in adult, unspecified BMI, unspecified obesity type, unspecified whether serious comorbidity present; 23 weeks gestation of 02/28/2025 Travel from Last 3 Months Social History Tobacco Use Types Packs/Day Years [...] on file Sexual Orientation Not on file Last Filed Vital Signs Vital Sign Reading Time Taken Comments Blood Pressure 106/66 04/04/2025 9:37 AM EDT Pulse - - Temperature - - Respiratory Rate - - Oxygen Saturation - - Inhaled Oxygen Concentration - - Weight 134 kg (294 lb 12.8 oz) 04/04/2025 9:37 A M EDT Height 167.6 cm (5' 6 ) 02/28/2025 2:28 PM EDT Body Mass Index 47.58 02/28/2025 2:28 PM EDT Plan of Treatment Upcoming Encounters Date Type Department Care Team (Late st Contact Info) Description 05/02/2025 2:45 PM EDT Office Visit [facility] MATERNAL MEDICINE [address] [facility] [address] [place] [address] 05/02/2025 2:45 PM EDT Appointment [facility] PER DIAG CTR [address] [place] [address] Health Maintenance Due Date Last Done Comments Annual Gynecologic Pelvic an d Breast Exam 2001 MENINGOCOCCAL B VACCINE (1 o f 2 - Standard) 2017 PAP SMEAR 2022 TDAP/TD VACCINES (2 - Td or Tdap) 11/29/2022 013 COVID-19 Vaccine (4 - 2023-2 5 season) 2024 10/17/2021, 04/23/2021, 03/22/2021 ANNUAL PHYSICAL 02/06/2025 RSV Vaccine - Adults (1 - Ri sk 1-dose series) 04/30/2025 INFLUENZA VACCINE 05/30/2025 06/03/2017 Pneumococcal Vaccine 0-49 Completed 2002, 12/04/2002, 03/10/2002, Additional history exists HPV VACCINES Completed 08/17/2012, 03/31, 12/31/2011 HEPATITIS C SCREENING Completed 12/01/2024, 025 Procedures Procedure Name Priority Date/Time Associated Diagnosis Comments [facility] Routine 04/04/2025 9:47 AM EDT Abnormal chromosomal and genetic finding on screening mother Chronic hypertension affecting Cystic fibrosis carrier, antepartum Class 3 severe obesity in adult, unspecified BMI, unspecified obesity type, unspecified whether serious comorbidity present [facility] Routine 02/28/2025 3:11 PM EDT Encounter for routine screening for malformation using ultrasonics HTN in , chronic Obesity in , antepartum , unspecified gestational age from Last 3 Months Results * [facility] (04/04/2025 9:47 AM EDT) Only the most recent of2 resultswithin the time period is included. Anatomical Region Laterality Modality Ultrasound 04/04/2025 9:41 AM EDT Narrative 04/04/2025 10:18 AM EDT PAT NAME: NAYLA PARKS [facility] REC#: [id number] DA: [id number] PAT GEND: F PAT TYPE: O EXAM NIKI: [id number] REF PHYS KALYAN ZIMMER Comparison Studies The [...] EFW (oz) 2 oz EFW by: Hadlock ([id number]-FH-HZ-FL) Extended Cav. septi pel. tr 6.3 mm [...] Normal Heart / Thorax 3-vessel view: Normal 8-sgbtlk-fytcjop view: normal Cord insertion: Normal Stomach: Appears [...] here in 4 weeks. Coding ====== Description: 20191-84 Follow Up Soap Worker: Brittny Cazares RDMS Physician: Jean Felipe MD, FACOG Electronically signed by: Jean Felipe MD, FACOG at: 10:18 Procedure Note Mickey Felipe MD - 04/04/2025 PAT NAME: NAYLA PARKS [facility] REC#: [id number] DA: [id number] PAT GEND: F PAT TYPE: O EXAM NIKI: [id number] REF PHYS KALYAN ZIMMER Comparison Studies The findings of this study are compared to the prior ultrasound studydated 04/04/25. Patient Status Outpatient Indication ======== NIPT-No results, CF-carrier, chronic hypertension, MO BMI 48 Maternal Assessment Tfrdgt108 cm Height (ft)5 ft Height (in)6 in Bmltyp435 kg Weight (lb)295 lb BMI47.98 kg/m Method ======= Transabdominal ultrasound examination. View: Limited by patient bodyhabitus ========= Liriano . Number of fetuses: 1 Dating ====== GA by prior [id number] w + 6 d KRISTY by prior [...] GA28 w + 6 d Assigned KRISTY:06/21/2025 [id number] d Biometry Standard BPD72.1 mm 29w 0d 40% Hadlock OFD99.8 mm 32w 2d >99% Arsalan HC273.5 mm 29w 6d 47% Hadlock Cerebellum tr36.1 mm 29w 6d 87% Hill AC254.1 mm 29w 4d 66% Hadlock Femur56.1 mm 29w 4d 54% Hadlock Mhthqig32.9 mm 29w 6d 69% Arsalan HC / AC1.08 EFW1,411 g 29w 1d 62% Hadlock EFW (lb)3 lb EFW (oz)2 oz EFW by:Hadlock ([id number]-FP-WK-FL) Extended Cav. septi pel. tr6.3 mm CM4.3 mm 2% Nicolaides Head / Face / Neck Cephalic index0.72 2% Nicolaides Extremities / Bony Struc FL / BPD0.78 FL / HC0.21 FL / AC0.22 Other Structures QFI685 bpm General Evaluation Cardiac activity present. FHR 145 bpm. movements present. Presentation cephalic. Placenta Placental site: posterior. Amniotic fluid Amount of AF: normal. MVP 4.8 cm. CRISTIANE 15.0 cm. Q1 4.5 cm,Q2 4.8 cm, Q3 3.2 cm, Q4 2.6 cm. Anatomy Cranium:Normal Cavum septi pellucidi:Normal Cerebellum:Normal Cisterna magna:Normal Lips:Normal Profile:Normal Nose:Normal 4-chamber view:Appears normal RVOT view:Normal LVOT view:Normal Heart / Thorax 3-vessel view:Normal 0-lmjnox-bevtnmf view:normal Cord insertion:Normal Stomach:Appears normal Kidneys:Appears normal Bladder:Appears normal Gender:female Wants to know gender:yes Maternal Structures Uterus / Cervix Cervical xbkkde98.7 mm Doppler Arterial Umbilical A PI1.11 73% [...] scheduled here in 4 weeks. Coding ====== Description:60701-62 Follow Up Soap Worker: Brittny Cazares RDMS Physician: Jean Felipe MD, FACOG Electronically signed by: Jean Felipe MD, FACOG at: 10:18 us Nova Saxena MD IMG US ORDERABLES Final Res ult from Last 3 Months Insurance [facility] PLAN [facility] Care Teams Bilingual Loan Processor Relationship Specialty Start Date End Date Olive Pa PA [address] [place] [address] PCP - General 02/27/25
--- OUTSIDE RECORDS SUMMARY | 2025-04-04 11:21 | XMS_ITS | Encounter Summary ---
[facility] Organization [facility] Address [address] [place] [id number] Care Team Providers Care Flaker Tender Name Role Phone Olive Pa Primary Care Provider [phone] Encounter Details Date Type Department Care Team (Latest Contact Info) Description 02/28/2025 Travel Social History Tobacco Use Types Packs/Day [...] Description 05/02/2025 2:45 PM EDT Office Visit [facility] MATERNAL MEDICINE [address] [facility] [address] [place] [address] 05/02/2025 2:45 PM EDT Appointment [facility] US PER DIAG CTR [address] [place] [address] documented as of this encounter Visit Diagnoses Not on filedocumented in this encounter Care Teams Flaker Tender Relationship Specialty Start Date End Date Olive Pa PA [address] [place] [address] PCP - General 02/27/25 documented as of this encounter
[2025-04-04 13:07] LABS: Hematocrit 31.0 % (37.0-47.0); Hemoglobin 10.1 g/dL (12.2-16.2); Immature Granulocytes % 0.4 %; Mean Corpuscular HGB Conc 32.6 g/dL (31.8-35.4); Mean Corpuscular Hemoglobin 28.9 pg (27.0-31.2); Mean Corpuscular Volume 88.6 fl (81-99); Nucleated Red Blood Cells % 0 %; Platelet Count 288 K/mm3 (142-424); Red Blood Count 3.50 M/mm3 (4.20-5.40); Red Cell Distribution Width-SD 45.0 fL; White Blood Count 8.1 K/mm3 (4.8-10.8)
[2025-04-04 13:29] LABS: Glucose 1 Hour 131 mg/dL (74-100)
[2025-04-04 19:55] LABS: RPR W/RFX Titers Nonreactive (Nonreactive)
== END 2025-04-04 23:59 | disposition home or self-care (01) ==
PROVIDERS: PCP Physician Assistant; Visit Provider Obstetrics & Gynecology
DX: Z34.82 Encounter for supervision of other normal pregnancy, second trimester (principal)
CPT/HCPCS: 36415; 82947; 85025; 86592

== ENCOUNTER 2025-04-24 10:58 | Outpatient (CLI) | payer OTHER, SELFPAY ==
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
--- OUTSIDE RECORDS SUMMARY | 2025-02-28 14:00 | XMS_ITS | Encounter Summary ---
Author Organization [facility] Address [address] [place] [address] Care Team Providers Care Rice Drier Name Role Phone Olive Pa Primary Care Provider [phone] Reason for Referral * Diagnostic Imaging (Routine) - Closed Specialty Diagnoses / Procedures Referred By Cintia potter Referred To Contact Radiology Diagnoses Encounter for routine screening for malformation using ultrasonics HTN in , chronic Obesity in , antepartum , unspecified gestational age Procedures [facility] [place] Kalyan Zimmer DO [address] [place] [address] [place] [address] Phone: tel: fax: [facility] DI[facility] [address] [place] [address] Phone: tel: Referral ID Status Reason Start Date Expiration Date Visits Re quested Visits Authorized [id number] Closed 02/06/2025 05/08/2026 1 1 Reason for Visit * Diagnostic Imaging (Routine) - Closed Specialty Diagnoses / Procedures Referred By Cintia potter Referred To Contact Radiology Diagnoses Encounter for routine screening for malformation using ultrasonics HTN in , chronic Obesity in , antepartum , unspecified gestational age Procedures [facility] Kalyan Zimmer DO [address] [place] [address] [place] [address] Phone: tel: fax: [facility] [address] [place] [address] Phone: tel: Referral ID Status Reason Start Date Expiration Date Visits Re quested Visits Authorized [id number] Closed 02/06/2025 05/08/2026 1 1 Encounter Details Date Type Department Care Team (Latest Contact Info) Description 02/28/2025 2:00 PM EDT - 02/28/2025 11:59 PM EDT Hospital Encounter [facility] [address] [place] [address] Kalyan Zimmer, DO [address] [place] [id number] Encounter for routine screening for malformation using ultrasonics; HTN in , chronic; Obesity in , antepartum; , unspecified gestational age Discharge Disposition: Home or Self Care Social History Tobacco Use Types Packs/Day Years [...] on file documented as of this encounter Medications at Time of Discharge BABY ASPIRIN PO Take 2 tablets by mouth Daily. doxylamine (UNISOM) 25 MG tablet Take 1 tablet by mouth At Night As Needed for Sleep or Nausea. labetalol (NORMODYNE) 200 MG tablet Take 1 tablet by mouth Every 12 (Twelve) Hours. 01/16/2025 ondansetron (ZOFRAN) 4 MG tablet Take 1 tablet by mouth Every 6 (Six) Hours As Needed. for nausea 12/01/2024 MV-Min-Fe Fum-FA-DHA ( 1 PO) Take 1 tablet by mouth Daily. sertraline (ZOLOFT) 100 MG tablet Take 1 tablet by mouth Daily. 02/24/2014 vitamin B-6 (PYRIDOXINE) 50 MG tablet Take 1 tablet by mouth Daily. documented as of this encounter Plan of Treatment Upcoming Encounters Date Type Department Care Team (Late st Contact Info) Description 05/02/2025 2:45 PM EDT Office Visit [facility] [address] [facility] [address] [place] [address] 05/02/2025 2:45 PM EDT Appointment [facility] [address] [place] [address] documented as of this encounter Procedures Procedure Name Priority Date/Time Associated Diagnosis Comments [facility] Routine 02/28/2025 3:11 PM EDT Encounter for routine screening for malformation using ultrasonics HTN in , chronic Obesity in , antepartum , unspecified gestational age documented in this encounter Results * [facility] (02/28/2025 3:11 PM EDT) Anatomical Region Laterality Modality Ultrasound 02/28/2025 2:47 PM EDT Narrative 02/28/2025 3:23 PM EDT PAT NAME: NAYLA PARKS [facility] REC#: [id number] DA: [id number] PAT GEND: F PAT TYPE: O EXAM NIKI: [id number] REF PHYS KALYAN ZIMMER Comparison Studies There are no relevant prior studies to which this study is being compared Patient Status Outpatient Indication ======== NIPT-No results, CF-carrier, Incomplete anatomy, [place] Maternal Assessment Height 167 cm Height (ft) 5 ft Height (in) 6 in Weight 132 kg Weight (lb) 291 lb BMI 47.33 kg/m Method ======= Transabdominal ultrasound examination. View: Adequate view ========= Liriano . Number of fetuses: 1 Dating ====== Method of dating: based on stated KRISTY GA by prior assessment 23 w + 6 d KRISTY by prior assessment: 06/21/2025 Ultrasound examination on: 02/28/2025 GA by U/S based upon: AC, BPD, Femur, HC GA by U/S 24 w + 3 d KRISTY by U/S: 06/17/2025 Assigned: based on stated KRISTY, selected on 02/28/2025 Assigned GA 23 w + 6 d Assigned KRISTY: 06/21/2025 length 280 d Biometry Standard BPD 60.1 mm 24w 4d 68% Hadlock OFD 77.0 mm 25w 2d 90% Arsalan HC 219.6 mm 24w 0d 38% Hadlock Cerebellum tr 25.0 mm 22w 5d 36% Hill AC 201.5 mm 24w 5d 70% Hadlock Femur 44.3 mm 24w 4d 62% Hadlock Humerus 39.6 mm 24w 1d 48% Arsalan HC / AC 1.09 EFW 716 g 24w 3d 76% Hadlock EFW (lb) 1 lb EFW (oz) 9 oz EFW by: Hadlock (OBL-VB-BL-FL) Extended Tibia 37.8 mm 24w 2d 64% Arsalan Fibula 37.1 mm 24w 0d 53% Arsalan Foot 43.8 mm 47% Chitty Radius 33.6 mm 23w 6d 48% Arsalan Ulna 36.8 mm 24w 3d 51% Arsalan Cav. septi pel. tr 6.6 mm [employer] 4.9 mm CM 4.2 mm 8% Nicolaides Nasal bone 9.5 mm Head / Face / Neck Cephalic index 0.78 45% Nicolaides Extremities / Bony Struc FL / BPD 0.74 FL / HC 0.20 FL / AC 0.22 Other Structures FHR 140 bpm General Evaluation Cardiac activity present. FHR 140 bpm. movements present. Presentation cephalic. Placenta Placental site: posterior. Umbilical cord Cord vessels: 3 vessel cord. Insertion site: placental insertion: normal. Amniotic fluid Amount of AF: normal. MVP 6.9 cm. CRISTIANE 23.4 cm. Q1 5.0 cm, Q2 6.9 cm, Q3 6.0 cm, Q4 5.5 cm. Anatomy Cranium: Appears normal Midline falx: Appears normal Cavum septi pellucidi: Appears normal Cerebellum: Appears normal Cisterna magna: Appears normal Head / Neck Rt lateral ventricle: Appears normal Lt lateral ventricle: Appears normal Rt choroid plexus: Appears normal Lt choroid plexus: Appears normal Vermis: Appears normal Neck: Appears normal Nuchal fold: Appears normal Lips: Appear normal Profile: Appears normal Nose: Appears normal Face Nose: Nasal bone present Palate: Appears normal Orbits: Appears normal Lens: Normal 4-chamber view: Appears normal RVOT view: Appears normal LVOT view: Appears normal Heart / Thorax Aortic arch view: Appears normal Ductal arch view: Appears normal SVC: normal IVC: normal 3-vessel view: Appears normal 0-sszpuc-dqgkjfs view: Appears normal Rt lung: Appears normal Lt lung: normal Diaphragm: Appears normal Diaphragm: Intact Cord insertion: Appears normal Stomach: Appears normal Bladder: Appears normal Abdomen Rt kidney: normal Lt kidney: normal Liver: normal Small bowel: normal Large bowel: normal Cervical spine: Appears normal Thoracic spine: Appears normal Lumbar spine: Appears normal Sacral spine: Appears normal Arms: Appears normal Legs: Appears normal Rt upper arm: Appears normal Rt forearm: Appears normal Rt hand: Appears normal Lt upper arm: Appears normal Lt forearm: Appears normal Lt hand: Appears normal Rt upper leg: Appears normal Rt lower leg: Appears normal Rt foot: Appears normal Lt upper leg: Appears normal Lt lower leg: Appears normal Lt foot: Appears normal Gender: female Wants to know gender: yes Maternal Structures Uterus / Cervix Cervix: Visualized Approach: Transabdominal Cervical length 38.7 mm Ovaries / Tubes / Adnexa Rt ovary: Visualized Lt ovary: Visualized Impression Nayla presents for a anatomic survey and growth assessment. On today's exam, SIUP is noted in cephalic presentation with biometry measuring consistent with dates. EFW overall measures at the 76th percentile. AC measures at the 70th percentile. There is a normal amount of amniotic fluid. Placenta is posterior. Cervical length appears adequate. Normal appearing anatomy is visualized. No structural abnormalities are identified and no soft markers highly suggestive of aneuploidy are seen. Recommendation Follow-up scheduled in 4wks. 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 View: Adequate view ========= Liriano . Number of fetuses: 1 Dating ====== Method of dating:based on stated KRISTY GA by prior [id number] w + 6 d KRISTY by prior assessment:06/21/2025 Ultrasound examination on:02/28/2025 GA by U/S based upon:AC, BPD, Femur, HC GA by U/S24 w + 3 d KRISTY by U/S:06/17/2025 Assigned:based on stated KRISTY, selected on 02/28/2025 Assigned GA23 w + 6 d Assigned KRISTY:06/21/2025 d Biometry Standard BPD60.1 mm 24w 4d 68% Hadlock OFD77.0 mm 25w 2d 90% Rasalan HC219.6 mm 24w 0d 38% Hadlock Cerebellum tr25.0 mm 22w 5d 36% Hill AC201.5 mm 24w 5d 70% Hadlock Femur44.3 mm 24w 4d 62% Hadlock Ovuohpz82.6 mm 24w 1d 48% Arsalan HC / AC1.09 YZR024 g 24w 3d 76% Hadlock EFW (lb)1 lb EFW (oz)9 oz EFW by:Hadlock (TOU-UD-XU-FL) Extended Tibia37.8 mm 24w 2d 64% Arsalan Fsafwo46.1 mm 24w 0d 53% Arsalan Foot43.8 mm 47% Chitty Mpqvuv84.6 mm 23w 6d 48% Arsalan Ulna36.8 mm 24w 3d 51% Arsalan Cav. septi pel. tr6.6 mm Vp4.9 mm CM4.2 mm 8% Nicolaides Nasal bone9.5 mm Head / Face / Neck Cephalic index0.78 45% Nicolaides Extremities / Bony Struc FL / BPD0.74 FL / HC0.20 FL / AC0.22 Other Structures VCL514 bpm General Evaluation Cardiac activity present. FHR 140 bpm. movements present. Presentation cephalic. Placenta Placental site: posterior. Umbilical cord Cord vessels: 3 vessel cord. Insertion site: placentalinsertion: normal. Amniotic fluid Amount of AF: normal. MVP 6.9 cm. CRISTIANE 23.4 cm. Q1 5.0 cm,Q2 6.9 cm, Q3 6.0 cm, Q4 5.5 cm. Anatomy Cranium:Appears normal Midline falx:Appears normal Cavum septi pellucidi:Appears normal Cerebellum:Appears normal Cisterna magna:Appears normal Head / Neck Rt lateral ventricle:Appears normal Lt lateral ventricle:Appears normal Rt choroid plexus:Appears normal Lt choroid plexus:Appears normal Vermis:Appears normal Neck:Appears normal Nuchal fold:Appears normal Lips:Appear normal Profile:Appears normal Nose:Appears normal Face Nose:Nasal bone present Palate:Appears normal Orbits:Appears normal Lens:Normal 4-chamber view:Appears normal RVOT view:Appears normal LVOT view:Appears normal Heart / Thorax Aortic arch view:Appears normal Ductal arch view:Appears normal SVC:normal IVC:normal 3-vessel view:Appears normal 9-iirrfj-uebdkik view:Appears normal Rt lung:Appears normal Lt lung:normal Diaphragm:Appears normal Diaphragm:Intact Cord insertion:Appears normal Stomach:Appears normal Bladder:Appears normal Abdomen Rt kidney:normal Lt kidney:normal Liver:normal Small bowel:normal Large bowel:normal Cervical spine:Appears normal Thoracic spine:Appears normal Lumbar spine:Appears normal Sacral spine:Appears normal Arms:Appears normal Legs:Appears normal Rt upper arm:Appears normal Rt forearm:Appears normal Rt hand:Appears normal Lt upper arm:Appears normal Lt forearm:Appears normal Lt hand:Appears normal Rt upper leg:Appears normal Rt lower leg:Appears normal Rt foot:Appears normal Lt upper leg:Appears normal Lt lower leg:Appears normal Lt foot:Appears normal Gender:female Wants to know gender:yes Maternal Structures Uterus / Cervix Cervix:Visualized Approach:Transabdominal Cervical wehdlc91.7 mm Ovaries / Tubes / Adnexa Rt ovary:Visualized Lt ovary:Visualized Impression Nayla presents for a anatomic survey and growth assessment. On today's exam, SIUP is noted in cephalic presentation with biometrymeasuring consistent with dates. EFW overall measures at the 76thpercentile. AC measures at the 70th percentile. There is a normal amount of amniotic fluid. Placentais posterior. Cervical length appears adequate. Normal appearing anatomy is visualized. No structural abnormalities areidentified and no soft markers highly suggestive of aneuploidy areseen. Recommendation Follow-up scheduled in 4wks. Coding ======= Description:41830-86 Detailed Machine Specialist: Anitra Randolph RDMS Physician: Nova [place]ena MD Electronically signed by: Nova Saxena MD at: 15:23 us Kalyan Zimmer DO IMG US ORDERABLES Final Res ult documented in this encounter Visit Diagnoses Diagnosis Encounter for routine screening for malformation using ultrasonics HTN in , chronic Obesity in , antepartum Obesity complicating , childbirth, or the puerperium, antepartum condition or complication , unspecified gestational age documented in this encounter Care Teams Rice Drier Relationship Specialty Start Date End Date Olive Pa PA [address] [place] [address] PCP - General 02/27/25 documented as of this encounter
--- OUTSIDE RECORDS SUMMARY | 2025-04-04 09:15 | XMS_ITS | Encounter Summary ---
Author Organization [facility] Address [address] [place] [id number] Care Team Providers Care Material Assembler Name Role Phone Olive Pa Primary Care Provider [phone] Reason for Referral * Diagnostic Imaging (Routine) - Authorized Specialty Diagnoses / Procedures Referred By Cintia potter Referred To Contact Radiology Diagnoses Chronic hypertension affecting Abnormal chromosomal and genetic finding on screening mother , unspecified gestational age Morbid obesity with BMI of 45.0-49.9, adult Procedures [facility] Mickey Felipe MD [address] [facility] [address] [place] [address] Phone: tel: fax: [facility] US PER DIAG CTR [address] [place] [address] Phone: tel: Referral ID Status Reason Start Date Expiration Date V isits Requested Visits Authorized [id number] Authorized 04/04/2025 07/04/2026 1 1 Reason for Visit * Reason Comments MO; CHTN; CF carrier Encounter Details Date Type Department Care Team ([facility] Contact Info) Description 04/04/2025 9:15 AM EDT Office Visit [facility] MEDICAL [facility] MATERNAL MEDICINE [address] [facility] [address] [place] [phone] Mickey Felipe MD [address] [facility] [address] [place] [address] Chronic hypertension affecting (Primary Dx); Abnormal chromosomal and genetic finding on screening mother; , unspecified gestational age; Morbid obesity with BMI of 45.0-49.9, adult Social History Tobacco Use Types Packs/Day Years [...] Sign Reading Time Taken Comments Blood Pressure 106/66 04/04/2025 9:37 AM EDT Pulse - - Temperature - - Respiratory Rate - - Oxygen Saturation - - Inhaled Oxygen Concentration - - Weight 134 kg (294 lb 12.8 oz) 04/04/2025 9:37 A M EDT Height - - Body Mass Index 47.58 02/28/2025 2:28 PM EDT documented in this encounter Progress Notes * Mickey Felipe MD - 04/04/2025 10:05 AM EDTAssociated Problem(s): Chronic hypertension affecting Patient returns today for follow-up for complicated by chronic hypertension. Patient's blood pressure today is 106/66. Patient is currently taking 200 mg of labetalol twice daily. Patient reports no complications and notes good movement. Ultrasound today demonstrates a normally grown fetus with no abnormality seen. In particular with no markers for trisomy. Amniotic fluid volume and umbilical artery Dopplers were normal. breathing was noted. Patient's chronic hypertension appears to be exceptionally well-controlled on the low-dose of labetalol. We would not want the patient's blood pressure to go lower than she is currently. As the patient is on a very low-dose of labetalol we have suggested stopping her labetalol. Patient will check her blood pressures twice daily at home and report these to her local OB to ensure that her blood pressure remains well-controlled on no medication. We will rescan the patient again in 4 weeks time to assess growth and wellbeing. Patient was counseled extensively regarding movement and will contact her provider immediately if she notices any decreased movement. * María Dukes RN - 04/04/2025 9:15 AM EDT Patient denies any leaking of fluid, vaginal bleeding, or contractions. NIPT no results x1, insufficient DNA x1. Patient reports next follow-up appointment with Dr. Zimmer's office is tomorrow. * Mickey Felipe MD - 04/04/2025 9:15 AM EDT Images from the original note were not included. Documentation of the ultrasound findings, images, and interpretations will be available in the patient's Viewpoint report which is located in the imaging tab in chart review. Maternal/ Medicine Follow Up Note Name: Olga Parks : 2000 Referring Provider: Latrice Zimmer DO Chief Complaint MO; CHTN; CF carrier Subjective History of Present Illness: Olga Parks is a 24 y.o. 28w6d who presents today for CHTN KRISTY: Estimated Date of Delivery: 06/21/25 ROS: As noted in HPI. Objective Vital Signs BP 106/66 Wt 134 kg (294 lb 12.8 oz) Estimated body mass index is 47.58 kg/m?? as calculated from the following: Height as of 02/28/25: 167.6 cm (66 ). Weight as of this encounter: 134 kg (294 lb 12.8 oz). Physical Exam Ultrasound Impression: See Viewpoint Assessment and Plan Olga Parks is a 24 y.o. 28w6d who presents today for CHTN Diagnoses and all orders for this visit: 1. Chronic hypertension affecting (Primary) Assessment & Plan: Patient returns today for follow-up for complicated by chronic hypertension. Patient's blood pressure today is 106/66. Patient is currently taking 200 mg of labetalol twice daily. Patient reports no complications and notes good movement. Ultrasound today demonstrates a normally grown fetus with no abnormality seen. In particular with no markers for trisomy. Amniotic fluid volume and umbilical artery Dopplers were normal. breathing was noted. Patient's chronic hypertension appears to be exceptionally well-controlled on the low-dose of labetalol. We would not want the patient's blood pressure to go lower than she is currently. As the patient is on a very low-dose of labetalol we have suggested stopping her labetalol. Patient will check her blood pressures twice daily at home and report these to her local OB to ensure that her blood pressure remains well-controlled on no medication. We will rescan the patient again in 4 weeks time to assess growth and wellbeing. Patient was counseled extensively regarding movement and will contact her provider immediately if she notices any decreased movement. Orders: - [facility]; Future 2. Abnormal chromosomal and genetic finding on screening mother - [facility]; Future 3. , unspecified gestational age - [facility]; Future 4. Morbid obesity with BMI of 45.0-49.9, adult - [facility]; Future Follow Up Return in about 4 weeks (around 05/02/2025). I spent 10 minutes caring for the patient on the [...] other procedures such as amniocentesis or CVS. Mickey Felipe MD Maternal Medicine, [facility] [place] 04/04/2025 documented in this encounter Plan of Treatment Upcoming Encounters Date Type Department Care Team (Late st Contact Info) Description 05/02/2025 2:45 PM EDT Office Visit [facility] MATERNAL MEDICINE [address] [place] [address] 05/02/2025 2:45 PM EDT Appointment [facility] US PER DIAG CTR [address] [place] [address] Scheduled Orders Name Type Priority Associated Diagnoses Orde r Schedule [facility] Imaging Routine Chronic hypertension affecting Abnormal chromosomal and genetic finding on screening mother , unspecified gestational age Morbid obesity with BMI of 45.0-49.9, adult Expected: 05/02/2025, Expires: 04/04/2026 documented as of this encounter Visit Diagnoses Diagnosis Chronic hypertension affecting - Primary Abnormal chromosomal and genetic finding on screening mother , unspecified gestational age Morbid obesity with BMI of 45.0-49.9, adult documented in this encounter Care Teams Material Assembler Relationship Specialty Start Date End Date Olive Pa PA [address] [place] [address] PCP - General 02/27/25 documented as of this encounter
--- OUTSIDE RECORDS SUMMARY | 2025-04-04 09:15 | XMS_ITS | Encounter Summary ---
Author Organization [facility] Address [address] [place] [address] Care Team Providers Care Contour Grinder Name Role Phone Olive Pa Primary Care Provider [phone] Reason for Referral * Diagnostic Imaging (Routine) - Closed Specialty Diagnoses / Procedures Referred By Cintia potter Referred To Contact Radiology Diagnoses Abnormal chromosomal and genetic finding on screening mother Chronic hypertension affecting Cystic fibrosis carrier, antepartum Class 3 severe obesity in adult, unspecified BMI, unspecified obesity type, unspecified whether serious comorbidity present Procedures [facility] Diagnostic [place] Nova Saxena MD [address] [place] [address] Phone: tel: fax: Referral ID Status Reason Start Date Expiration Date Visits Re quested Visits Authorized [id number] Closed 02/28/2025 05/30/2026 1 1 Reason for Visit * Diagnostic Imaging (Routine) - Closed Specialty Diagnoses / Procedures Referred By Cintia potter Referred To Contact Radiology Diagnoses Abnormal chromosomal and genetic finding on screening mother Chronic hypertension affecting Cystic fibrosis carrier, antepartum Class 3 severe obesity in adult, unspecified BMI, unspecified obesity type, unspecified whether serious comorbidity present Procedures [facility] Diagnostic [place] Nova Saxena MD [address] [place] [address] Phone: tel: fax: Referral ID Status Reason Start Date Expiration Date Visits Re quested Visits Authorized [id number] Closed 02/28/2025 05/30/2026 1 1 Encounter Details Date Type Department Care Team (Late st Contact Info) Description 04/04/2025 9:15 AM EDT - 04/04/2025 11:59 PM EDT Hospital Encounter [facility] PER DIAG CTR [address] [facility] [place] [address] Nova Saxena MD [address] [facility] [address] [place] [address] Abnormal chromosomal and genetic finding [...] Description 05/02/2025 2:45 PM EDT Office Visit [facility] [address] [facility] [address] [place] [address] 05/02/2025 2:45 PM EDT Appointment [facility] US PER DIAG CTR [address] [place] [id number] documented as of this encounter Procedures Procedure Name Priority Date/Time Associated Diagnosis Comments [facility] Routine 04/04/2025 9:47 AM EDT Abnormal chromosomal and genetic finding on screening mother Chronic hypertension affecting Cystic fibrosis carrier, antepartum Class 3 severe obesity in adult, unspecified BMI, unspecified obesity type, unspecified whether serious comorbidity present documented in this encounter Results * [facility] (04/04/2025 9:47 AM EDT) Anatomical Region Laterality Modality Ultrasound 04/04/2025 9:41 AM EDT Narrative 04/04/2025 10:18 AM EDT PAT NAME: NAYLA PARKS [facility] REC#: [id number] DA: [id number] PAT GEND: F PAT TYPE: O EXAM NIKI: [id number] REF PHYS KALYAN MARROQUIN Comparison Studies The [...] EFW (oz) 2 oz EFW by: Hadlock (AFY-GI-NJ-FL) Extended Cav. septi pel. tr 6.3 mm [...] Normal Heart / Thorax 3-vessel view: Normal 4-fawthm-bxbhmca view: normal Cord insertion: Normal Stomach: Appears [...] here in 4 weeks. Coding ====== Description: 36876-22 Follow Up Site Inspector: Brittny Cazares RDMS Physician: Jean Felipe MD, FACOG Electronically signed by: Jean Felipe MD, FACOG at: 10:18 Procedure Note Mickey Felipe MD - 04/04/2025 PAT NAME: NAYLA PARKS [facility] REC#: [id number] DA: [id number] PAT GEND: F PAT TYPE: O EXAM NIKI: [id number] REF PHYS KALYAN MARROQUIN Comparison Studies The findings of this study are compared to the prior ultrasound studydated 04/04/25. Patient Status Outpatient Indication ======== NIPT-No results, CF-carrier, chronic hypertension, [place] BMI 48 Maternal Assessment Hgjpae483 cm Height (ft)5 ft Height (in)6 in Pkxbtx643 kg Weight (lb)295 lb BMI47.98 kg/m Method ======= Transabdominal ultrasound examination. View: Limited by patient bodyhabitus ========= Liriano . Number of fetuses: 1 Dating ====== GA by prior ugkwbqzlef35 w + 6 d KRISTY by prior assessment:06/21/2025 Ultrasound examination on:04/04/2025 GA by U/S based upon:AC, BPD, Femur, HC GA by U/S29 w + 4 d KRISTY by U/S:06/16/2025 Method of dating:Restore dating from previous exam Previous dating:based on stated RKISTY, selected on 02/28/2025 Agreed KRISTY of previous datin06/21/2025 Assigned:based on stated KRISTY, selected on 02/28/2025 Assigned GA28 w + 6 d Assigned KRISTY:06/21/2025 d Biometry Standard BPD72.1 mm 29w 0d 40% Hadlock OFD99.8 mm 32w 2d >99% Arsalan HC273.5 mm 29w 6d 47% Hadlock Cerebellum tr36.1 mm 29w 6d 87% Hill AC254.1 mm 29w 4d 66% Hadlock Femur56.1 mm 29w 4d 54% Hadlock Yqpsxix46.9 mm 29w 6d 69% Arsalan HC / AC1.08 EFW1,411 g 29w 1d 62% Hadlock EFW (lb)3 lb EFW (oz)2 oz EFW by:Hadlock (DCG-SJ-VH-FL) Extended Cav. septi pel. tr6.3 mm CM4.3 mm 2% Nicolaides Head / Face / Neck Cephalic index0.72 2% Nicolaides Extremities / Bony Struc FL / BPD0.78 FL / HC0.21 FL / AC0.22 Other Structures BGX685 bpm General Evaluation Cardiac activity present. FHR 145 bpm. movements present. Presentation cephalic. Placenta Placental site: posterior. Amniotic fluid Amount of AF: normal. MVP 4.8 cm. CRISTIANE 15.0 cm. Q1 4.5 cm,Q2 4.8 cm, Q3 3.2 cm, Q4 2.6 cm. Anatomy Cranium:Normal Cavum septi pellucidi:Normal Cerebellum:Normal Cisterna magna:Normal Lips:Normal Profile:Normal Nose:Normal 4-chamber view:Appears normal RVOT view:Normal LVOT view:Normal Heart / Thorax 3-vessel view:Normal 9-vagxvv-tohnpcx view:normal Cord insertion:Normal Stomach:Appears normal Kidneys:Appears normal [...] scheduled here in 4 weeks. Coding ====== Description:99121-30 Follow Up Site Inspector: Brittny Cazares RDMS Physician: Jean Felipe [...] present documented in this encounter Care Teams Contour Grinder Relationship Specialty Start Date End Date Olive Pa PA [address] [place] [address] PCP - General 02/27/25 documented as of this encounter
--- OUTSIDE RECORDS SUMMARY | 2025-04-26 10:36 | XMS_ITS | Encounter Summary ---
Author Organization [facility] Address [address] [place] [id number] Care Team Providers Care Slitter Scorer Name Role Phone Olive Pa Primary Care Provider [phone] Encounter Details Date Type Department Care Team [...] Description 05/02/2025 2:45 PM EDT Office Visit [facility]NAL MEDICINE [address] [facility] [address] [place] [address] 05/02/2025 2:45 PM EDT Appointment [facility] US PER DIAG CTR [address] [place] [address] documented as of this encounter Visit Diagnoses Not on filedocumented in this encounter Care Teams Slitter Scorer Relationship Specialty Start Date End Date Olive Pa PA [address] [place] [address] PCP - General 02/27/25 documented as of this encounter
--- OUTSIDE RECORDS SUMMARY | 2025-04-26 10:36 | XMS_ITS | Clinical Summary ---
Author Organization [facility] Address [address] [place] [address] Care Team Providers Care Press Tender Incendiary Grenade Name Role Phone Olive Pa Primary Care Provider [phone] Allergies Active Allergy Reactions Criticality Noted Date [...] Description 04/04/2025 9:15 AM EDT Office Visit [facility] MATERNAL MEDICINE [address] [phone] Mickey Felipe MD Chronic hypertension affecting (Primary Dx); Abnormal chromosomal and genetic finding on screening mother; , unspecified gestational age; Morbid obesity with BMI of 45.0-49.9, adult 04/04/2025 9:15 AM EDT - 04/04/2025 11:59 PM EDT Hospital Encounter [facility] US PER DIAG CTR [address] [place] [address] Nova Saxena MD Abnormal chromosomal and genetic finding on screening mother; Chronic hypertension affecting ; Cystic fibrosis carrier, antepartum; Class 3 severe obesity in adult, unspecified BMI, unspecified obesity type, unspecified whether serious comorbidity present Discharge Disposition: Home or Self Care 04/04/2025 Travel 02/28/2025 2:00 PM EDT - 02/28/2025 11:59 PM EDT Hospital Encounter [facility] US PER DIAG CTR [address] [place] [phone] Kalyan Zimmer, Encounter for routine screening for malformation using ultrasonics; HTN in , chronic; Obesity in , antepartum; , unspecified gestational age Discharge Disposition: Home or Self Care 02/28/2025 2:00 PM EDT Office Visit [facility] MATERNAL MEDICINE [address] [phone] Nova Saxena MD Abnormal chromosomal and genetic [...] Description 05/02/2025 2:45 PM EDT Office Visit [facility] MATERNAL MEDICINE [address] [facility] [address] [place] [address] 05/02/2025 2:45 PM EDT Appointment [facility] US PER DIAG CTR [address] [place] [address] Health Maintenance Due Date Last Done Comments [...] [facility] Routine 04/04/2025 9:47 AM EDT Abnormal chromosomal and genetic finding on screening mother Chronic hypertension affecting Cystic fibrosis carrier, antepartum Class 3 severe obesity in adult, unspecified BMI, unspecified obesity type, unspecified whether serious comorbidity present [facility] Routine 02/28/2025 3:11 PM EDT Encounter for routine screening for malformation using ultrasonics HTN in , chronic Obesity in , antepartum , unspecified gestational age from Last 3 Months Results * [facility] (04/04/2025 9:47 AM EDT) Only the most recent of2 resultswithin the time period is included. Anatomical Region Laterality Modality Ultrasound 04/04/2025 9:41 AM EDT Narrative 04/04/2025 10:18 AM EDT PAT NAME: NAYLA PARKS [facility] REC#: [id number] DA: [id number] PAT GEND: F PAT TYPE: O EXAM NIKI: [id number] REF PHYS KALYAN ZIMMER Comparison Studies The [...] EFW (oz) 2 oz EFW by: Hadlock (HAL-WH-NI-FL) Extended Cav. septi pel. tr 6.3 mm [...] Normal Heart / Thorax 3-vessel view: Normal 0-mhefbj-gpfwayg view: normal Cord insertion: Normal Stomach: Appears [...] here in 4 weeks. Coding ====== Description: 37184-31 Follow Up Motion Picture Equipment Supervisor: Brittny Cazares RDMS Physician: Jean Felipe MD, FACOG Electronically signed by: Jean Felipe MD, FACOG at: 10:18 Procedure Note Mickey Felipe MD - 04/04/2025 PAT NAME: NAYLA PARKS [facility] REC#: [id number] DA: [id number] PAT GEND: F PAT TYPE: O EXAM NIKI: [id number] REF PHYS KALYAN ZIMMER Comparison Studies The findings of this study are compared to the prior ultrasound studydated 04/04/25. Patient Status Outpatient Indication ======== NIPT-No results, CF-carrier, chronic hypertension, [place] BMI 48 Maternal Assessment Eadjal735 cm Height (ft)5 ft Height (in)6 in Xjrgtu135 kg Weight (lb)295 lb BMI47.98 kg/m Method ======= Transabdominal ultrasound examination. View: Limited by patient bodyhabitus ========= Liriano . Number of fetuses: 1 Dating ====== GA by prior [id number] w + 6 d KRISTY by prior [...] GA28 w + 6 d Assigned KRISTY:06/21/2025 [id number] d Biometry Standard BPD72.1 mm 29w 0d 40% Hadlock OFD99.8 mm 32w 2d >99% Arsalan HC273.5 mm 29w 6d 47% Hadlock Cerebellum tr36.1 mm 29w 6d 87% Hill AC254.1 mm 29w 4d 66% Hadlock Femur56.1 mm 29w 4d 54% Hadlock Lzvrgqy69.9 mm 29w 6d 69% Arsalan HC / AC1.08 EFW1,411 g 29w 1d 62% Hadlock EFW (lb)3 lb EFW (oz)2 oz EFW by:Hadlock (RTP-PC-EF-FL) Extended Cav. septi pel. tr6.3 mm CM4.3 mm 2% Nicolaides Head / Face / Neck Cephalic index0.72 2% Nicolaides Extremities / Bony Struc FL / BPD0.78 FL / HC0.21 FL / AC0.22 Other Structures [id number] bpm General Evaluation Cardiac activity present. FHR 145 bpm. movements present. Presentation cephalic. Placenta Placental site: posterior. Amniotic fluid Amount of AF: normal. MVP 4.8 cm. CRISTIANE 15.0 cm. Q1 4.5 cm,Q2 4.8 cm, Q3 3.2 cm, Q4 2.6 cm. Anatomy Cranium:Normal Cavum septi pellucidi:Normal Cerebellum:Normal Cisterna magna:Normal Lips:Normal Profile:Normal Nose:Normal 4-chamber view:Appears normal RVOT view:Normal LVOT view:Normal Heart / Thorax 3-vessel view:Normal 9-ggfbtn-zbkelum view:normal Cord insertion:Normal Stomach:Appears normal Kidneys:Appears normal Bladder:Appears normal Gender:female Wants to know gender:yes Maternal Structures Uterus / Cervix Cervical qwivjh78.7 mm Doppler Arterial Umbilical A PI1.11 73% [...] scheduled here in 4 weeks. Coding ====== Description:57532-12 Follow Up Motion Picture Equipment Supervisor: Brittny Cazares RDMS Physician: Jean Felipe MD, FACOG Electronically signed by: Jean Felipe MD, FACOG at: 10:18 us Nova Saxena MD IMG US ORDERABLES Final Res ult from Last 3 Months Insurance [facility] PLAN [facility] Care Teams Press Tender Incendiary Grenade Relationship Specialty Start Date End Date Olive aP PA [address] [place] [address] PCP - General 02/27/25
--- OUTSIDE RECORDS SUMMARY | 2025-04-26 10:36 | XMS_ITS | Clinical Summary ---
Author Organization [facility] Address [address] [place] [address] Phone Care Team Providers Care News Anchor Name Role Phone Nain Velazquez MD Primary Care Provider [phone] Allergies Active Allergy Reactions Criticality Noted Date [...] on 11/15/2024 oxymetazoline (AFRIN) 0.05 % Nasl [place], Non-AerosolIndi cations:Acute rhinitis 1 [place] by Nasal route 5 times daily as [...] Estimated Date of Delivery 11/15/2024 - Present (04/26/2025) 06/21/2025 (set by Lisa Fragoso RN on [...] of estimated date of delivery: No Thalassemia (Gibraltarian, Tamazight, Mediterranean, or background): MCV less than 80: No Neural tube defect (Meningomyelocele, Spina bifida, or Anencephaly): No Congenital heart defect: Yes (Comment: FOB's paternal cousin - unknown cardiac defect, had multiple cardiac surgeries as a infant/toddler) Down syndrome: No Jack-Sachs (Ashkenazi Pentecostal, Cajun, Chinese [place]): No Ab disease (Ashkenazi Pentecostal): No Familial dysautonomia (Ashkenazi Pentecostal): No Sickle cell disease or trait (): No Hemophilia or other blood disorders: No Muscular dystrophy: No Cystic fibrosis: No [place]'s chorea: No Intellectual disability and/or autism: No [...] Completed 08/17/2012, 03/31, 12/31/2011 Insurance Poonam Washburn [address] CHOICE PLUS [facility] [place] [place] [facility] GENERIC WORKERS' COMP on file CLAIMS MANAGEMENT INC [facility] PLAN [place] [address] [place] [address] Care Teams News Anchor Relationship Specialty Start Date End Date Nain Velazquez MD [address] [place] [address] [place] [address] PCP - General Emergency Medicine 10/15/22
--- OUTSIDE RECORDS SUMMARY | 2025-04-26 10:36 | XMS_ITS | Encounter Summary ---
Author Organization [facility] Address [address] [place] [id number] Care Team Providers Care Clarifier Operator Helper Name Role Phone Olive Pa Primary Care Provider [phone] Encounter Details Date Type Department Care Team [...] 2:45 PM EDT Office Visit [facility] MATERNAL MEDICINE [address] [facility] [address] [place] [address] 05/02/2025 2:45 PM EDT Appointment [facility] US PER DIAG CTR [address] [place] [address] documented as of this encounter Visit Diagnoses Not on filedocumented in this encounter Care Teams Clarifier Operator Helper Relationship Specialty Start Date End Date Olive Pa PA [address] [place] [address] PCP - General 02/27/25 documented as of this encounter
== END 2025-04-24 23:59 | disposition home or self-care (01) ==
LOC: LAB.DROPOF 04-26 10:32
PROVIDERS: PCP Obstetrics & Gynecology; Visit Provider Obstetrics & Gynecology
DX: O10.919 Unspecified pre-existing hypertension complicating pregnancy, unspecified trimester (principal); O99.210 Obesity complicating pregnancy, unspecified trimester
CPT/HCPCS: 87086

== ENCOUNTER 2025-05-03 14:47 | Outpatient (CLI) | payer OTHER, SELFPAY ==
--- OUTSIDE RECORDS SUMMARY | 2025-04-04 09:15 | XMS_ITS | Encounter Summary ---
Author Organization [facility] Address [address] [place] [address] Care Team Providers Care Radiologic Technician Name Role Phone Olive Pa Primary Care Provider [phone] Reason for Referral * Diagnostic Imaging (Routine) - Closed Specialty Diagnoses / Procedures Referred By Cintia potter Referred To Contact Radiology Diagnoses Abnormal chromosomal and genetic finding on screening mother Chronic hypertension affecting Cystic fibrosis carrier, antepartum Class 3 severe obesity in adult, unspecified BMI, unspecified obesity type, unspecified whether serious comorbidity present Procedures [facility] Diagnostic [place] Nova Saxena MD [address] [place] [address] Phone: tel: fax: Referral ID Status Reason Start Date Expiration Date Visits Re quested Visits Authorized [id number] Closed 02/28/2025 05/30/2026 1 1 Reason for Visit * Diagnostic Imaging (Routine) - Closed Specialty Diagnoses / Procedures Referred By Cintia potter Referred To Contact Radiology Diagnoses Abnormal chromosomal and genetic finding on screening mother Chronic hypertension affecting Cystic fibrosis carrier, antepartum Class 3 severe obesity in adult, unspecified BMI, unspecified obesity type, unspecified whether serious comorbidity present Procedures [facility] Diagnostic [place] Nova Saxena MD [address] [place] [address] Phone: tel: fax: Referral ID Status Reason Start Date Expiration Date Visits Re quested Visits Authorized [id number] Closed 02/28/2025 05/30/2026 1 1 Encounter Details Date Type Department Care Team (Late st Contact Info) Description 04/04/2025 9:15 AM EDT - 04/04/2025 11:59 PM EDT Hospital Encounter [facility] PER DIAG CTR [address] [facility] [place] [id number] Nova Saxena MD [address] [place] [address] Abnormal chromosomal and genetic finding [...] Procedure Name Priority Date/Time Associated Diagnosis Comments [facility] Routine 04/04/2025 9:47 AM EDT Abnormal chromosomal and genetic finding on screening mother Chronic hypertension affecting Cystic fibrosis carrier, antepartum Class 3 severe obesity in adult, unspecified BMI, unspecified obesity type, unspecified whether serious comorbidity present documented in this encounter Results * [facility] (04/04/2025 9:47 AM EDT) Anatomical Region Laterality Modality Ultrasound 04/04/2025 9:41 AM EDT Narrative 04/04/2025 10:18 AM EDT PAT NAME: NAYLA PARKS [facility] REC#: [id number] DA: [id number] PAT GEND: F PAT TYPE: O EXAM NIKI: [id number] REF PHYS KALYAN MARROQUIN Comparison Studies The [...] EFW (oz) 2 oz EFW by: Hadlock (CGH-UI-YG-FL) Extended Cav. septi pel. tr 6.3 mm [...] Normal Heart / Thorax 3-vessel view: Normal 2-chybbg-nrivcvq view: normal Cord insertion: Normal Stomach: Appears [...] here in 4 weeks. Coding ====== Description: 47505-50 Follow Up Log Peeler: Brittny Cazares RDMS Physician: Jean Felipe MD, FACOG Electronically signed by: Jean Felipe MD, FACOG at: 10:18 Procedure Note Mickey Felipe MD - 04/04/2025 PAT NAME: NAYLA PARKS [facility] REC#: [id number] DA: [id number] PAT GEND: F PAT TYPE: O EXAM NIKI: [id number] REF PHYS KALYAN MARROQUIN Comparison Studies The findings of this study are compared to the prior ultrasound studydated 04/04/25. Patient Status Outpatient Indication ======== NIPT-No results, CF-carrier, chronic hypertension, [place] BMI 48 Maternal Assessment Ckzqjj104 cm Height (ft)5 ft Height (in)6 in Ftzdjy324 kg Weight (lb)295 lb BMI47.98 kg/m Method ======= Transabdominal ultrasound examination. View: Limited by patient bodyhabitus ========= Liriano . Number of fetuses: 1 Dating ====== GA by prior [id number] w + 6 d KRISTY by prior assessment:06/21/2025 Ultrasound examination on:04/04/2025 GA by U/S based upon:AC, BPD, Femur, HC GA by U/S29 w + 4 d KRISTY by U/S:06/16/2025 Method of dating:Restore dating from previous exam Previous dating:based on stated KRISTY, selected on 02/28/2025 Agreed KRISTY of previous datin06/21/2025 Assigned:based on stated KRISTY, selected on 02/28/2025 Assigned GA28 w + 6 d Assigned KRSITY:06/21/2025 [id number] d Biometry Standard BPD72.1 mm 29w 0d 40% Hadlock OFD99.8 mm 32w 2d >99% Arsalan HC273.5 mm 29w 6d 47% Hadlock Cerebellum tr36.1 mm 29w 6d 87% Hill AC254.1 mm 29w 4d 66% Hadlock Femur56.1 mm 29w 4d 54% Hadlock Azzjlkp13.9 mm 29w 6d 69% Arsalan HC / AC1.08 EFW1,411 g 29w 1d 62% Hadlock EFW (lb)3 lb EFW (oz)2 oz EFW by:Hadlock (ULK-AR-MA-FL) Extended Cav. septi pel. tr6.3 mm CM4.3 mm 2% Nicolaides Head / Face / Neck Cephalic index0.72 2% Nicolaides Extremities / Bony Struc FL / BPD0.78 FL / HC0.21 FL / AC0.22 Other Structures JBJ724 bpm General Evaluation Cardiac activity present. FHR 145 bpm. movements present. Presentation cephalic. Placenta Placental site: posterior. Amniotic fluid Amount of AF: normal. MVP 4.8 cm. CRISTIANE 15.0 cm. Q1 4.5 cm,Q2 4.8 cm, Q3 3.2 cm, Q4 2.6 cm. Anatomy Cranium:Normal Cavum septi pellucidi:Normal Cerebellum:Normal Cisterna magna:Normal Lips:Normal Profile:Normal Nose:Normal 4-chamber view:Appears normal RVOT view:Normal LVOT view:Normal Heart / Thorax 3-vessel view:Normal 2-zpzxlt-txfhgaj view:normal Cord insertion:Normal Stomach:Appears normal Kidneys:Appears normal Bladder:Appears normal Gender:female Wants to know gender:yes Maternal Structures Uterus / Cervix Cervical .7 mm Doppler Arterial Umbilical A PI1.11 73% [...] scheduled here in 4 weeks. Coding ====== Description:87877-55 Follow Up Log Peeler: Brittny Cazares RDMS Physician: eJan Felipe MD, FACOG Electronically signed by: Jean [...] present documented in this encounter Care Teams Radiologic Technician Relationship Specialty Start Date End Date Olive Pa PA [address] [place] [address] PCP - General 02/27/25 documented as of this encounter
--- OUTSIDE RECORDS SUMMARY | 2025-04-04 09:15 | XMS_ITS | Encounter Summary ---
Author Organization [facility] Address [address] [place] [id number] Care Team Providers Care Brisket Puller Name Role Phone Olive Pa Primary Care Provider [phone] Reason for Referral * Diagnostic Imaging (Routine) - Authorized Specialty Diagnoses / Procedures Referred By Cintia potter Referred To Contact Radiology Diagnoses Chronic hypertension affecting Abnormal chromosomal and genetic finding on screening mother , unspecified gestational age Morbid obesity with BMI of 45.0-49.9, adult Procedures [facility] Mickey Felipe MD [address] [facility] [address] [place] [address] Phone: tel: fax: [facility] PER [facility] [address] [place] [address] Phone: tel: Referral ID Status Reason Start Date Expiration Date V isits Requested Visits Authorized [id number] Authorized 04/04/2025 07/04/2026 1 1 Reason for Visit * Reason Comments [place]; CHTN; CF carrier Encounter Details Date Type Department Care Team ([facility] Contact Info) Description 04/04/2025 9:15 AM EDT Office Visit [facility] MATERNAL MEDICINE [address] [facility] [address] [place] [phone] Mickey Felipe MD [address] [facility] [address] [place] [address] Chronic hypertension affecting (Primary Dx); Abnormal chromosomal [...] any decreased movement. Orders: - [facility]; Future 2. Abnormal chromosomal and genetic finding on screening mother - [facility] [place]; Future 3. , unspecified gestational age - [facility] [place]; Future 4. Morbid obesity with BMI of 45.0-49.9, adult - [facility] [place]; Future Follow Up Return in about 4 [...] or CVS. Mickey Felipe MD Maternal Medicine, [facility] [place] 04/04/2025 documented in this encounter Plan of Treatment Scheduled Orders Name Type Priority Associated Diagnoses Orde r Schedule [facility] Imaging Routine Chronic hypertension [...] adult documented in this encounter Care Teams Brisket Puller Relationship Specialty Start Date End Date Olive Pa PA [address] [place] [address] PCP - General 02/27/25 documented as of this encounter
--- OUTSIDE RECORDS SUMMARY | 2025-05-07 09:13 | XMS_ITS | Clinical Summary ---
Author Organization [facility] Address [address] [place] [address] Care Team Providers Care Hostler Helper Name Role Phone Olive Pa Primary Care Provider [phone] Allergies Active Allergy Reactions Criticality Noted Date [...] Description 04/04/2025 9:15 AM EDT Office Visit [facility]ERNAL MEDICINE [address] [phone] Mickey Felipe MD Chronic hypertension affecting (Primary Dx); Abnormal chromosomal and genetic finding on screening mother; , unspecified gestational age; Morbid obesity with BMI of 45.0-49.9, adult 04/04/2025 9:15 AM EDT - 04/04/2025 11:59 PM EDT Hospital Encounter [facility] US PER DIAG CTR [address] [place] [phone] Nova Saxena MD Abnormal chromosomal and genetic finding on screening mother; Chronic hypertension affecting ; Cystic fibrosis carrier, antepartum; Class 3 severe obesity in adult, unspecified BMI, unspecified obesity type, unspecified whether serious comorbidity present Discharge Disposition: Home or Self Care 04/04/2025 Travel 02/28/2025 2:00 PM EDT - 02/28/2025 11:59 PM EDT Hospital Encounter [facility] US PER DIAG CTR [address] [place] [phone] Latrice Zimmer, Encounter for routine screening for malformation using ultrasonics; HTN in , chronic; Obesity in , antepartum; , unspecified gestational age Discharge Disposition: Home or Self Care 02/28/2025 2:00 PM EDT Office Visit [facility] MATERNAL MEDICINE [address] [phone] Nova Saxena MD Abnormal chromosomal and genetic [...] 02/28/2025 2:28 PM EDT Plan of Treatment Health Maintenance Due Date Last Done Comments Annual Gynecologic Pelvic an d Breast Exam 2001 MENINGOCOCCAL B VACCINE (1 o f 2 - Standard) 2017 PAP SMEAR 2022 TDAP/TD VACCINES (2 - Td or Tdap) 11/29/2022 013 ANNUAL PHYSICAL 02/06/2025 COVID-19 Vaccine (4 - 2024-2 6 season) 2025 10/17/2021, 04/23/2021, 03/22/2021 RSV Vaccine - Adults (1 - Ri sk 1-dose series) 04/30/2025 INFLUENZA VACCINE 05/30/2025 06/03/2017 Pneumococcal Vaccine 0-49 Completed 2002, 12/04/2002, 03/10/2002, Additional history exists HPV VACCINES Completed 08/17/2012, 03/31, 12/31/2011 HEPATITIS C SCREENING Completed 12/01/2024, 025 Procedures Procedure Name Priority Date/Time Associated Diagnosis Comments [facility] Routine 04/04/2025 9:47 AM EDT Abnormal chromosomal and genetic finding on screening mother Chronic hypertension affecting Cystic fibrosis carrier, antepartum Class 3 severe obesity in adult, unspecified BMI, unspecified obesity type, unspecified whether serious comorbidity present [facility] Routine 02/28/2025 3:11 PM EDT Encounter for routine screening for malformation using ultrasonics HTN in , chronic Obesity in , antepartum , unspecified gestational age from Last 3 Months Results * [facility] (04/04/2025 9:47 AM EDT) Only the most recent of2 resultswithin the time period is included. Anatomical Region Laterality Modality Ultrasound 04/04/2025 9:41 AM EDT Narrative 04/04/2025 10:18 AM EDT PAT NAME: NAYLA PARKS [facility] REC#: [id number] DA: 2000 PAT GEND: F PAT TYPE: O EXAM NIKI: [id number] REF PHYS LATRICE ZIMMER Comparison Studies The findings of this [...] EFW (oz) 2 oz EFW by: Hadlock (KWR-LE-MX-FL) Extended Cav. septi pel. tr 6.3 mm [...] Normal Heart / Thorax 3-vessel view: Normal 6-lvrjom-hswdfhc view: normal Cord insertion: Normal Stomach: Appears [...] here in 4 weeks. Coding ====== Description: 80902-91 Follow Up Snowboard Designer: Brittny Cazares RDMS Physician: Jean Felipe MD, FACOG Electronically signed by: Jean Felipe MD, FACOG at: 10:18 Procedure Note Mickey Felipe MD - 04/04/2025 PAT NAME: NAYLA PARKS MED REC#: [id number] DA: [id number] PAT GEND: F PAT TYPE: O EXAM NIKI: [id number] REF PHYS LATRICE ZIMMER Comparison Studies The findings of this study are compared to the prior ultrasound studydated 04/04/25. Patient Status Outpatient Indication ======== NIPT-No results, CF-carrier, chronic hypertension, MO BMI 48 Maternal Assessment Zqaief054 cm Height (ft)5 ft Height (in)6 in Bixuqh882 kg Weight (lb)295 lb BMI47.98 kg/m Method ======= Transabdominal ultrasound examination. View: Limited by patient bodyhabitus ========= Liriano . Number of fetuses: 1 Dating ====== GA by prior [id number] w + 6 d KRISTY by prior assessment:06/21/2025 Ultrasound examination on:04/04/2025 GA by U/S based upon:AC, BPD, Femur, HC GA by U/S29 w + 4 d KRISTY by U/S:06/16/2025 Method of dating:Restore dating from previous exam Previous dating:based on stated KRISTY, selected on 02/28/2025 Agreed KRISTY of previous datin06/21/2025 Assigned:based on stated KRISTY, selected on 02/28/2025 Assigned GA28 w + 6 d Assigned RKISTY:06/21/2025 d Biometry Standard BPD72.1 mm 29w 0d 40% Hadlock OFD99.8 mm 32w 2d >99% Arsalan HC273.5 mm 29w 6d 47% Hadlock Cerebellum tr36.1 mm 29w 6d 87% Hill AC254.1 mm 29w 4d 66% Hadlock Femur56.1 mm 29w 4d 54% Hadlock Wxjttjp53.9 mm 29w 6d 69% Arsalan HC / AC1.08 EFW1,411 g 29w 1d 62% Hadlock EFW (lb)3 lb EFW (oz)2 oz EFW by:Hadlock (CES-IO-XA-FL) Extended Cav. septi pel. tr6.3 mm CM4.3 mm 2% Nicolaides Head / Face / Neck Cephalic index0.72 2% Nicolaides Extremities / Bony Struc FL / BPD0.78 FL / HC0.21 FL / AC0.22 Other Structures RED772 bpm General Evaluation Cardiac activity present. FHR 145 bpm. movements present. Presentation cephalic. Placenta Placental site: posterior. Amniotic fluid Amount of AF: normal. MVP 4.8 cm. CRISTIANE 15.0 cm. Q1 4.5 cm,Q2 4.8 cm, Q3 3.2 cm, Q4 2.6 cm. Anatomy Cranium:Normal Cavum septi pellucidi:Normal Cerebellum:Normal Cisterna magna:Normal Lips:Normal Profile:Normal Nose:Normal 4-chamber view:Appears normal RVOT view:Normal LVOT view:Normal Heart / Thorax 3-vessel view:Normal 6-eitilo-hwxvnsg view:normal Cord insertion:Normal Stomach:Appears normal Kidneys:Appears normal Bladder:Appears normal Gender:female Wants to know gender:yes Maternal Structures Uterus / Cervix Cervical unpbai11.7 mm Doppler Arterial Umbilical A PI1.11 73% [...] scheduled here in 4 weeks. Coding ====== Description:72892-94 Follow Up Snowboard Designer: Brittny Cazares RDMS Physician: Jean Felipe MD, FACOG Electronically signed by: Jean Felipe MD, FACOG at: 10:18 us Nova Saxena MD IMG US ORDERABLES Final Res ult from Last 3 Months Insurance [facility] [place] Care Teams Hostler Helper Relationship Specialty Start Date End Date Olive Pa PA [address] [place] [address] PCP - General 02/27/25
--- OUTSIDE RECORDS SUMMARY | 2025-05-07 09:13 | XMS_ITS | Clinical Summary ---
Author Organization [facility] Address [address] [place] [address] Phone Care Team Providers Care Solutions Operator Name Role Phone Nain Velazquez MD Primary Care Provider [phone] Allergies Active Allergy Reactions Criticality Noted Date [...] on 11/15/2024 oxymetazoline (AFRIN) 0.05 % Nasl [place], Non-AerosolIndi cations:Acute rhinitis 1 [place] by Nasal route 5 times daily as [...] Estimated Date of Delivery 11/15/2024 - Present (05/07/2025) 06/21/2025 (set by Lisa Fragoso RN on [...] of estimated date of delivery: No Thalassemia (Maltese, Telugu, Mediterranean, or background): MCV less than 80: No Neural tube defect (Meningomyelocele, Spina bifida, or Anencephaly): No Congenital heart defect: Yes (Comment: FOB's paternal cousin - unknown cardiac defect, had multiple cardiac surgeries as a /toddler) Down syndrome: No Jack-Sachs (Ashkenazi Religion, Cajun, Welsh Croatian): No Ab disease (Ashkenazi Religion): No Familial dysautonomia (Ashkenazi Religion): No Sickle cell disease or trait (): [...] Additional history exists COVID-19 Vaccine (4 - 2024-2 6 season) 2025 10/17/2021, 04/23/2021, 03/22/2021 Influenza Vaccine (#1) 2025 06/03/2017 RSV or 60+ (1 - Ris k 1-dose series) 04/30/2025 Hepatitis B Vaccine Completed 06/09/2002, 01/06/2002, 2001 Pneumococcal Vaccine 0-49 Completed 2002, 12/04/2002, 03/10/2002, Additional history exists HPV Completed 08/17/2012, 03/31, 12/31/2011 Insurance Poonam Washburn [address] CHOICE PLUS [facility] COMM[place]ITY PLAN [place] [facility] GENERIC WORKERS' COMP on file CLAIMS MANAGEMENT INC [facility] COMMUNITY PLAN [place] [address] [place] [address] Care Teams Solutions Operator Relationship Specialty Start Date End Date Nain Velazquez MD [address] [place] [address] [place] [phone] PCP - General Emergency Medicine 10/15/22
--- OUTSIDE RECORDS SUMMARY | 2025-05-07 09:13 | XMS_ITS | Encounter Summary ---
Author Organization [facility] Address [address] [place] [id number] Care Team Providers Care Marriage And Family Social Worker Name Role Phone Olive Pa Primary Care Provider [phone] Encounter Details Date Type Department Care Team [...] on filedocumented in this encounter Care Teams Marriage And Family Social Worker Relationship Specialty Start Date End Date Olive Pa PA [address] [place] [address] PCP - General 02/27/25 documented as of this encounter
== END 2025-05-03 23:59 ==
LOC: LAB.DROPOF 05-07 09:01
PROVIDERS: PCP Obstetrics & Gynecology; Visit Provider Obstetrics & Gynecology
DX: O99.210 Obesity complicating pregnancy, unspecified trimester (principal); O10.919 Unspecified pre-existing hypertension complicating pregnancy, unspecified trimester; O21.9 Vomiting of pregnancy, unspecified; O26.899 Other specified pregnancy related conditions, unspecified trimester; E66.9 Obesity, unspecified; R82.71 Bacteriuria; R10.32 Left lower quadrant pain; Z3A.00 Weeks of gestation of pregnancy not specified
CPT/HCPCS: 87086

== ENCOUNTER 2025-05-07 20:11 | Outpatient (CLI) | payer OTHER, SELFPAY ==
--- OUTSIDE RECORDS SUMMARY | 2025-04-04 09:15 | XMS_ITS | Encounter Summary ---
Author Organization [facility] Address [address] [place] [id number] Care Team Providers Care Communication Center Operator Name Role Phone Olive Pa Primary Care Provider [phone] Reason for Referral * Diagnostic Imaging (Routine) - Authorized Specialty Diagnoses / Procedures Referred By Cintia potter Referred To Contact Radiology Diagnoses Chronic hypertension affecting Abnormal chromosomal and genetic finding on screening mother , unspecified gestational age Morbid obesity with BMI of 45.0-49.9, adult Procedures [facility] Mickey Felipe MD [address] [facility] [address] [place] [address] Phone: tel: fax: [facility] US PER DIAG CTR [address] [place] [address] Phone: tel: Referral ID Status Reason Start Date Expiration Date V isits Requested Visits Authorized [id number] Authorized 04/04/2025 07/04/2026 1 1 Reason for Visit * Reason Comments [place]; CHTN; CF carrier Encounter Details Date Type Department Care Team ([facility] Contact Info) Description 04/04/2025 9:15 AM EDT Office Visit [facility] MEDICAL [facility] MAT[facility] MEDICINE [address] [facility] [address] [place] [phone] Mickey Felipe MD [address] [facility] [address] [place] [address] Chronic hypertension affecting (Primary Dx); Abnormal chromosomal [...] if she notices any decreased movement. * Mraía Dukes RN - 04/04/2025 9:15 AM EDT [...] she notices any decreased movement. Orders: - [facility]; Future 2. Abnormal chromosomal and genetic finding on screening mother - [facility] [place]; Future 3. , unspecified gestational age - [facility] [place]; Future 4. Morbid obesity with BMI of 45.0-49.9, adult - [facility] [place]; Future Follow Up Return in about 4 [...] or CVS. Mickey Felipe MD Maternal Medicine, [facility] Diagnostic [place] 04/04/2025 documented in this encounter Plan of Treatment Scheduled Orders Name Type Priority Associated Diagnoses Orde r Schedule [facility] Imaging Routine Chronic hypertension [...] adult documented in this encounter Care Teams Communication Center Operator Relationship Specialty Start Date End Date Olive Pa PA [address] [place] [address] PCP - General 02/27/25 documented as of this encounter
--- OUTSIDE RECORDS SUMMARY | 2025-04-04 09:15 | XMS_ITS | Encounter Summary ---
Author Organization [facility] Address [address] [place] [address] Care Team Providers Care Procurement Professional Name Role Phone Olive Pa Primary Care [...] whether serious comorbidity present Procedures [facility] [place] Nova Saxena MD [address] [place] [address] Phone: tel: fax: Referral ID Status Reason Start Date Expiration Date Visits Re quested Visits Authorized [id number] Closed 02/28/2025 05/30/2026 1 1 Reason for Visit * Diagnostic Imaging (Routine) - Closed Specialty Diagnoses / Procedures Referred By Cintia potter Referred To Contact Radiology Diagnoses Abnormal chromosomal and genetic finding on screening mother Chronic hypertension affecting Cystic fibrosis carrier, antepartum Class 3 severe obesity in adult, unspecified BMI, unspecified obesity type, unspecified whether serious comorbidity present Procedures [facility] [place] Nova Saxena MD [address] [place] [address] Phone: tel: fax: Referral ID Status Reason Start Date Expiration Date Visits Re quested Visits Authorized [id number] Closed 02/28/2025 05/30/2026 1 1 Encounter Details Date Type Department Care Team (Late st Contact Info) Description 04/04/2025 9:15 AM EDT - 04/04/2025 11:59 PM EDT Hospital Encounter [facility] PER DIAG CTR [address] [facility] [place] [phone] Nova Saxena MD [address] [place] [address] Abnormal chromosomal and genetic finding [...] Procedure Name Priority Date/Time Associated Diagnosis Comments [facility] Routine 04/04/2025 9:47 AM EDT Abnormal chromosomal and genetic finding on screening mother Chronic hypertension affecting Cystic fibrosis carrier, antepartum Class 3 severe obesity in adult, unspecified BMI, unspecified obesity type, unspecified whether serious comorbidity present documented in this encounter Results * [facility] (04/04/2025 9:47 AM EDT) Anatomical Region Laterality Modality Ultrasound 04/04/2025 9:41 AM EDT Narrative 04/04/2025 10:18 AM EDT PAT NAME: NAYLA PARKS [facility] REC#: [id number] DA: [id number] PAT GEND: F PAT TYPE: O EXAM NIKI: [id number] REF PHYS KALYAN MARROQUIN Comparison Studies The [...] EFW (oz) 2 oz EFW by: Hadlock ([id number]-[id number]-VK-FL) Extended Cav. septi pel. tr 6.3 mm [...] Normal Heart / Thorax 3-vessel view: Normal 4-sqrdgz-dhddiim view: normal Cord insertion: Normal Stomach: Appears [...] here in 4 weeks. Coding ====== Description: 98956-87 Follow Up Field Assistant: Brittny Cazares RDMS Physician: Jean Felipe MD, FACOG Electronically signed by: Jean Felipe MD, FACOG at: 10:18 Procedure Note Mickey Felipe MD - 04/04/2025 PAT NAME: NAYLA PARKS [facility] REC#: [id number] DA: [id number] PAT GEND: F PAT TYPE: O EXAM NIKI: [id number] REF PHYS KALYAN MARROQUIN Comparison Studies The findings of this study are compared to the prior ultrasound studydated 04/04/25. Patient Status Outpatient Indication ======== NIPT-No results, CF-carrier, chronic hypertension, [place] BMI 48 Maternal Assessment Adsvmj171 cm Height (ft)5 ft Height (in)6 in Rihzbx932 kg Weight (lb)295 lb BMI47.98 kg/m Method ======= Transabdominal ultrasound examination. View: Limited by patient bodyhabitus ========= Liriano . Number of fetuses: 1 Dating ====== GA by prior [id number] w + 6 d KRISTY by prior [...] Hadlock Femur56.1 mm 29w 4d 54% Hadlock Wokrruo00.9 mm 29w 6d 69% Arsalan HC / AC1.08 EFW1,411 g 29w 1d 62% Hadlock EFW (lb)3 lb EFW (oz)2 oz EFW by:Hadlock (KGP-KP-ZT-FL) Extended Cav. septi pel. tr6.3 mm CM4.3 mm 2% Nicolaides Head / Face / Neck Cephalic index0.72 2% Nicolaides Extremities / Bony Struc FL / BPD0.78 FL / HC0.21 FL / AC0.22 Other Structures GSP461 bpm General Evaluation Cardiac activity present. FHR 145 bpm. movements present. Presentation cephalic. Placenta Placental site: posterior. Amniotic fluid Amount of AF: normal. MVP 4.8 cm. CRISTIANE 15.0 cm. Q1 4.5 cm,Q2 4.8 cm, Q3 3.2 cm, Q4 2.6 cm. Anatomy Cranium:Normal Cavum septi pellucidi:Normal Cerebellum:Normal Cisterna magna:Normal Lips:Normal Profile:Normal Nose:Normal 4-chamber view:Appears normal RVOT view:Normal LVOT view:Normal Heart / Thorax 3-vessel view:Normal 2-ealwlo-emewljq view:normal Cord insertion:Normal Stomach:Appears normal Kidneys:Appears normal [...] scheduled here in 4 weeks. Coding ====== Description:93247-84 Follow Up Field Assistant: Brittny Cazares RDMS Physician: Jean Felipe MD, [...] present documented in this encounter Care Teams Procurement Professional Relationship Specialty Start Date End Date Olive Pa PA [address] [place] [address] PCP - General 02/27/25 documented as of this encounter
--- OUTSIDE RECORDS SUMMARY | 2025-05-07 20:14 | XMS_ITS | Encounter Summary ---
Author Organization [facility] Address [address] [place] [id number] Care Team Providers Care Controlled Atmospheric Furnace Brazer Name Role Phone Olive Pa Primary Care Provider [phone] Encounter Details Date Type Department Care Team [...] on filedocumented in this encounter Care Teams Controlled Atmospheric Furnace Brazer Relationship Specialty Start Date End Date Olive Pa PA [address] [place] [address] PCP - General 02/27/25 documented as of this encounter
--- OUTSIDE RECORDS SUMMARY | 2025-05-07 20:14 | XMS_ITS | Clinical Summary ---
Author Organization [facility] Address [address] [place] [address] Care Team Providers Care Auto Engine Mechanic Name Role Phone Olive Pa Primary Care Provider [phone] Allergies Active Allergy Reactions Criticality Noted Date [...] Description 04/04/2025 9:15 AM EDT Office Visit [facility] MATERNAL MEDICINE [address] [phone] Mickey Felipe MD Chronic hypertension affecting (Primary Dx); Abnormal chromosomal and genetic finding on screening mother; , unspecified gestational age; Morbid obesity with BMI of 45.0-49.9, adult 04/04/2025 9:15 AM EDT - 04/04/2025 11:59 PM EDT Hospital Encounter [facility] US PER DIAG CTR [address] [place] [phone] Nova Saxena MD Abnormal chromosomal and genetic finding on screening mother; Chronic hypertension affecting ; Cystic fibrosis carrier, antepartum; Class 3 severe obesity in adult, unspecified BMI, unspecified obesity type, unspecified whether serious comorbidity present Discharge Disposition: Home or Self Care 04/04/2025 Travel 02/28/2025 2:00 PM EDT - 02/28/2025 11:59 PM EDT Hospital Encounter [facility] US PER DIAG CTR [address] [place] [phone] Latrice Zimmer, Encounter for routine screening for malformation using ultrasonics; HTN in , chronic; Obesity in , antepartum; , unspecified gestational age Discharge Disposition: Home or Self Care 02/28/2025 2:00 PM EDT Office Visit [facility] MAT[facility]NAL MEDICINE [address] [phone] Nova Saxena MD Abnormal chromosomal and genetic [...] Procedure Name Priority Date/Time Associated Diagnosis Comments [facility] Routine 04/04/2025 9:47 AM EDT Abnormal chromosomal and genetic finding on screening mother Chronic hypertension affecting Cystic fibrosis carrier, antepartum Class 3 severe obesity in adult, unspecified BMI, unspecified obesity type, unspecified whether serious comorbidity present [facility] Routine 02/28/2025 3:11 PM EDT Encounter for routine screening for malformation using ultrasonics HTN in , chronic Obesity in , antepartum , unspecified gestational age from Last 3 Months Results * [facility] (04/04/2025 9:47 AM EDT) Only the most recent of2 resultswithin the time period is included. Anatomical Region Laterality Modality Ultrasound 04/04/2025 9:41 AM EDT Narrative 04/04/2025 10:18 AM EDT PAT NAME: NAYLA PARKS [facility] REC#: [id number] DA: 2000 PAT GEND: F PAT TYPE: O EXAM NIKI: [id number] REF PHYS LATRICE ZIMMER Comparison Studies The [...] EFW (oz) 2 oz EFW by: Hadlock (XWJ-XX-UY-FL) Extended Cav. septi pel. tr 6.3 mm [...] Normal Heart / Thorax 3-vessel view: Normal 5-mfztfc-qsumatn view: normal Cord insertion: Normal Stomach: Appears [...] here in 4 weeks. Coding ====== Description: 35583-81 Follow Up Bottle Washer Machine: Brittny Cazares RDMS Physician: Jean Felipe MD, FACOG Electronically signed by: Jean Felipe MD, FACOG at: 10:18 Procedure Note Mickey Felipe MD - 04/04/2025 PAT NAME: NAYLA PARKS MED REC#: [id number] DA: [id number] PAT GEND: F PAT TYPE: O EXAM NIKI: [id number] REF PHYS LATRICE ZIMMER Comparison Studies The findings of this study are compared to the prior ultrasound studydated 04/04/25. Patient Status Outpatient Indication ======== NIPT-No results, CF-carrier, chronic hypertension, MO BMI 48 Maternal Assessment Ejzxyg337 cm Height (ft)5 ft Height (in)6 in Sgnkpn708 kg Weight (lb)295 lb BMI47.98 kg/m Method ======= Transabdominal ultrasound examination. View: Limited by patient bodyhabitus ========= Liriano . Number of fetuses: 1 Dating ====== GA by prior nysmstkply77 w + 6 d KRISTY by prior [...] GA28 w + 6 d Assigned KRISTY:06/21/2025 lfsqav405 d Biometry Standard BPD72.1 mm 29w 0d 40% Hadlock OFD99.8 mm 32w 2d >99% Arsalan HC273.5 mm 29w 6d 47% Hadlock Cerebellum tr36.1 mm 29w 6d 87% Hill AC254.1 mm 29w 4d 66% Hadlock Femur56.1 mm 29w 4d 54% Hadlock Hupqdyy92.9 mm 29w 6d 69% Arsalan HC / AC1.08 EFW1,411 g 29w 1d 62% Hadlock EFW (lb)3 lb EFW (oz)2 oz EFW by:Hadlock (DRN-OI-VA-FL) Extended Cav. septi pel. tr6.3 mm CM4.3 mm 2% Nicolaides Head / Face / Neck Cephalic index0.72 2% Nicolaides Extremities / Bony Struc FL / BPD0.78 FL / HC0.21 FL / AC0.22 Other Structures WSI690 bpm General Evaluation Cardiac activity present. FHR 145 bpm. movements present. Presentation cephalic. Placenta Placental site: posterior. Amniotic fluid Amount of AF: normal. MVP 4.8 cm. CRISTIANE 15.0 cm. Q1 4.5 cm,Q2 4.8 cm, Q3 3.2 cm, Q4 2.6 cm. Anatomy Cranium:Normal Cavum septi pellucidi:Normal Cerebellum:Normal Cisterna magna:Normal Lips:Normal Profile:Normal Nose:Normal 4-chamber view:Appears normal RVOT view:Normal LVOT view:Normal Heart / Thorax 3-vessel view:Normal 0-rncpjz-xtypgdi view:normal Cord insertion:Normal Stomach:Appears normal Kidneys:Appears normal Bladder:Appears normal Gender:female Wants to know gender:yes Maternal Structures Uterus / Cervix Cervical veesmc92.7 mm Doppler Arterial Umbilical A PI1.11 73% [...] scheduled here in 4 weeks. Coding ====== Description:26012-18 Follow Up Bottle Washer Machine: Brittny Cazares RDMS Physician: Jean Felipe MD, FACOG Electronically signed by: Jean Felipe MD, FACOG at: 10:18 us Nova Saxena MD IMG US ORDERABLES Final Res ult from Last 3 Months Insurance [facility] [place] Care Teams Auto Engine Mechanic Relationship Specialty Start Date End Date Olive Pa PA [address] [place] [address] PCP - General 02/27/25
--- OUTSIDE RECORDS SUMMARY | 2025-05-07 20:14 | XMS_ITS | Clinical Summary ---
Author Organization [facility] Address [address] [place] [address] Phone Care Team Providers Care Director Acute Name Role Phone Nain Velazquez MD Primary Care Provider [phone] Allergies Active Allergy Reactions Criticality Noted Date [...] on 11/15/2024 oxymetazoline (AFRIN) 0.05 % Nasl [place], Non-AerosolIndi cations:Acute rhinitis 1 [place] by Nasal route 5 times daily as [...] of estimated date of delivery: No Thalassemia (Syriac, Romansh, Mediterranean, or background): MCV less than 80: No Neural tube defect (Meningomyelocele, Spina bifida, or Anencephaly): No Congenital heart defect: Yes (Comment: FOB's paternal cousin - unknown cardiac defect, had multiple cardiac surgeries as a /toddler) Down syndrome: No Jack-Sachs (Ashkenazi Alevism, Cajun, Haitian Danish): No Ab disease (Ashkenazi Alevism): No Familial dysautonomia (Ashkenazi Alevism): No Sickle cell disease or trait (): [...] Completed 08/17/2012, 03/31, 12/31/2011 Insurance Poonam Washburn [address] CHOICE PLUS [facility] COMMUNITY PLAN [place] [facility] GENERIC WORKERS' COMP on file CLAIMS MANAGEMENT INC [id number] CHOICE PLUS [facility] COMMUNITY PLAN [place] [address] [place] [address] Care Teams Director Acute Relationship Specialty Start Date End Date Nain Velazquez MD [address] [place] [address] [place] [phone] PCP - General Emergency Medicine 10/15/22
[2025-05-07 20:37] VITALS: BMI 47.4
[2025-05-07 20:43] LABS: Microscopic, Urine URINE MICROSCOPIC (MICROSCOPIC)
[2025-05-07 20:44] LABS: Bilirubin,Urine Negative (Negative); Color,Urine YELLOW (Yellow); Glucose,Urine (UA) Negative (Negative); Ketones,Urine Negative (Negative); Leukocyte Esterase,Urine TRACE (Negative); PH,Urine 6.5 (5.0-8.5); Protein,Urine Negative (Negative); Specific Gravity, Urine 1.015 (1.005-1.030); Urobilinogen,Urine 0.2 EU/dl (0.2)
[2025-05-07 20:45] VITALS: BP 126/78; PULSE 95
[2025-05-07 21:00] VITALS: BP 123/77; PULSE 84
[2025-05-07 21:04] LABS: Fetal Membrane Rupture (Rapid) Negative (Negative)
[2025-05-07 21:15] VITALS: BP 133/83; PULSE 77
[2025-05-07 21:30] VITALS: BP 126/81; PULSE 89
[2025-05-07 21:34] LABS: Bacteria,Urine 2+ /lpf
[2025-05-07] MEDS: DEXTROSE 5%-LACTATED RINGERS 1,000 ML 999 ML IV (21:44)
[2025-05-07 22:14] VITALS: BP 125/83; PULSE 90; RESP 21; TEMP 37.1; O2SAT 96; BMI 47.2
== END 2025-05-07 23:21 | disposition home or self-care (01) ==
LOC: OBOUT 20:13 → OB 20:13
PROVIDERS: PCP Physician Assistant; Visit Provider Nurse Practitioner Obstetrics & Gynecology
DX: O42.913 Preterm premature rupture of membranes, unspecified as to length of time between rupture and onset of labor, third trimester (principal); Z3A.33 33 weeks gestation of pregnancy
CPT/HCPCS: 59025; 81001; 84112; 87086; 96360; 99212; G0463; J7121

== ENCOUNTER 2025-05-15 12:54 | Outpatient (CLI) | payer OTHER, SELFPAY ==
--- OUTSIDE RECORDS SUMMARY | 2025-04-04 09:15 | XMS_ITS | Encounter Summary ---
Author Organization [facility] Address [address] [place] [id number] Care Team Providers Care Automation Technologist Name Role Phone Olive Pa Primary Care Provider [phone] Reason for Referral * Diagnostic Imaging (Routine) - Authorized Specialty Diagnoses / Procedures Referred By Cintia potter Referred To Contact Radiology Diagnoses Chronic hypertension affecting Abnormal chromosomal and genetic finding on screening mother , unspecified gestational age Morbid obesity with BMI of 45.0-49.9, adult Procedures [facility] Mickey Felipe MD [address] [facility] [address] [place] [address] Phone: tel: fax: [facility] US PER DIAG CTR [address] [place] [address] Phone: tel: Referral ID Status Reason Start Date Expiration Date V isits Requested Visits Authorized [id number] Authorized 04/04/2025 07/04/2026 1 1 Reason for Visit * Reason Comments [place]; CHTN; CF carrier Encounter Details Date Type Department Care Team ([facility] Contact Info) Description 04/04/2025 9:15 AM EDT Office Visit [facility] MAT[facility] [address] [facility] [address] [place] [phone] Mickey Felipe MD [address] [facility] [address] [place] [address] Chronic hypertension affecting (Primary Dx); Abnormal chromosomal [...] she notices any decreased movement. Orders: - [facility]; Future 2. Abnormal chromosomal and genetic finding on screening mother - [facility] [place]; Future 3. , unspecified gestational age - [facility] [place]; Future 4. Morbid obesity with BMI of 45.0-49.9, adult - [facility] [place]; Future Follow Up Return in about 4 [...] or [facility]. Mickey Felipe MD Maternal Medicine, [facility] [place] 04/04/2025 documented in this encounter Plan of Treatment Scheduled Orders Name Type Priority Associated Diagnoses Orde r Schedule [facility] Imaging Routine Chronic hypertension affecting [...] adult documented in this encounter Care Teams Automation Technologist Relationship Specialty Start Date End Date Olive Pa PA [address] [place] [address] PCP - General 02/27/25 documented as of this encounter
--- OUTSIDE RECORDS SUMMARY | 2025-04-04 09:15 | XMS_ITS | Encounter Summary ---
Author Organization [facility] Address [address] [place] [address] Care Team Providers Care Supervisor Computer Operations Name Role Phone Olive Pa Primary Care Provider [phone] Reason for Referral * Diagnostic Imaging (Routine) - Closed Specialty Diagnoses / Procedures Referred By Cinita potter Referred To Contact Radiology Diagnoses Abnormal chromosomal and genetic finding on screening mother Chronic hypertension affecting Cystic fibrosis carrier, antepartum Class 3 severe obesity in adult, unspecified BMI, unspecified obesity type, unspecified whether serious comorbidity present Procedures [facility] [place] Nova Saxena MD [address] [place] [address] Phone: tel: fax: Referral ID Status Reason Start Date Expiration Date Visits Re quested Visits Authorized [id number] Closed 02/28/2025 05/30/2026 1 1 Reason for Visit * Diagnostic Imaging (Routine) - Closed Specialty Diagnoses / Procedures Referred By Cintia potter Referred To Contact Radiology Diagnoses Abnormal chromosomal and genetic finding on screening mother Chronic hypertension affecting Cystic fibrosis carrier, antepartum Class 3 severe obesity in adult, unspecified BMI, unspecified obesity type, unspecified whether serious comorbidity present Procedures [facility] [place] Nova Saxena MD [address] [place] [address] Phone: tel: fax: Referral ID Status Reason Start Date Expiration Date Visits Re quested Visits Authorized [id number] Closed 02/28/2025 05/30/2026 1 1 Encounter Details Date Type Department Care Team (Late st Contact Info) Description 04/04/2025 9:15 AM EDT - 04/04/2025 11:59 PM EDT Hospital Encounter [facility] PER DIAG CTR [address] [facility] [place] [address] Nova Saxena MD [address] [place] [address] Abnormal chromosomal and genetic finding [...] Name Priority Date/Time Associated Diagnosis Comments [facility] Routine 04/04/2025 9:47 AM EDT Abnormal chromosomal and genetic finding on screening mother Chronic hypertension affecting Cystic fibrosis carrier, antepartum Class 3 severe obesity in adult, unspecified BMI, unspecified obesity type, unspecified whether serious comorbidity present documented in this encounter Results * [facility] (04/04/2025 9:47 AM EDT) Anatomical Region Laterality Modality Ultrasound 04/04/2025 9:41 AM EDT Narrative 04/04/2025 10:18 AM EDT PAT NAME: NAYLA PARKS [facility] REC#: [id number] DA: [id number] PAT GEND: F PAT TYPE: O EXAM NIKI: [id number] REF PHYS KALYAN MARROQUIN Comparison Studies The [...] EFW (oz) 2 oz EFW by: Hadlock (HUL-US-II-FL) Extended Cav. septi pel. tr 6.3 mm [...] Normal Heart / Thorax 3-vessel view: Normal 1-mizvvy-bbhqhgg view: normal Cord insertion: Normal Stomach: Appears [...] here in 4 weeks. Coding ====== Description: 95425-00 Follow Up Credit Specialist: Brittny Cazares RDMS Physician: Jean Felipe MD, FACOG Electronically signed by: Jean Felipe MD, FACOG at: 10:18 Procedure Note Mickey Felipe MD - 04/04/2025 PAT NAME: NAYLA PARKS [facility] REC#: [id number] DA: [id number] PAT GEND: F PAT TYPE: O EXAM NIKI: [id number] REF PHYS KALYAN MARROQUIN Comparison Studies The findings of this study are compared to the prior ultrasound studydated 04/04/25. Patient Status Outpatient Indication ======== NIPT-No results, CF-carrier, chronic hypertension, [place] BMI 48 Maternal Assessment Tjwgxx750 cm Height (ft)5 ft Height (in)6 in Pwlvyg911 kg Weight (lb)295 lb BMI47.98 kg/m Method [...] Hadlock Femur56.1 mm 29w 4d 54% Hadlock Ocxwtnd68.9 mm 29w 6d 69% Arsalan HC / AC1.08 EFW1,411 g 29w 1d 62% Hadlock EFW (lb)3 lb EFW (oz)2 oz EFW by:Hadlock (XDF-PB-[id number]-FL) Extended Cav. septi pel. tr6.3 mm CM4.3 mm 2% Nicolaides Head / Face / Neck Cephalic index0.72 2% Nicolaides Extremities / Bony Struc FL / BPD0.78 FL / HC0.21 FL / AC0.22 Other Structures JTM773 bpm General Evaluation Cardiac activity present. FHR 145 bpm. movements present. Presentation cephalic. Placenta Placental site: posterior. Amniotic fluid Amount of AF: normal. MVP 4.8 cm. CRISTIANE 15.0 cm. Q1 4.5 cm,Q2 4.8 cm, Q3 3.2 cm, Q4 2.6 cm. Anatomy Cranium:Normal Cavum septi pellucidi:Normal Cerebellum:Normal Cisterna magna:Normal Lips:Normal Profile:Normal Nose:Normal 4-chamber view:Appears normal RVOT view:Normal LVOT view:Normal Heart / Thorax 3-vessel view:Normal 6-ywomse-gltniel view:normal Cord insertion:Normal Stomach:Appears normal Kidneys:Appears normal Bladder:Appears normal Gender:female Wants to know gender:yes Maternal Structures Uterus / Cervix Cervical xnudkx22.7 mm Doppler Arterial Umbilical A PI1.11 73% [...] scheduled here in 4 weeks. Coding ====== Description:83626-19 Follow Up Credit Specialist: Brittny Cazares RDMS Physician: Jean Felipe [...] present documented in this encounter Care Teams Supervisor Computer Operations Relationship Specialty Start Date End Date Olive Pa PA [address] [place] [address] PCP - General 02/27/25 documented as of this encounter
--- OUTSIDE RECORDS SUMMARY | 2025-05-15 12:56 | XMS_ITS | Encounter Summary ---
Author Organization [facility] Address [address] [place] [phone] Care Team Providers Care Helper Electrical Name Role Phone Olive Pa Primary Care Provider [phone] Encounter Details Date Type Department Care Team [...] on filedocumented in this encounter Care Teams Helper Electrical Relationship Specialty Start Date End Date Olive Pa PA [address] [place] [address] PCP - General 02/27/25 documented as of this encounter
--- OUTSIDE RECORDS SUMMARY | 2025-05-15 12:56 | XMS_ITS | Clinical Summary ---
Author Organization [facility] Address [address] [place] [address] Care Team Providers Care Mutuel Cashier Name Role Phone Olive Pa Primary Care Provider [phone] Allergies Active Allergy Reactions Criticality Noted Date [...] 9:15 AM EDT Office Visit [facility]ICINE [address] [phone] Mickey Felipe MD Chronic hypertension affecting (Primary Dx); Abnormal chromosomal and genetic finding on screening mother; , unspecified gestational age; Morbid obesity with BMI of 45.0-49.9, adult 04/04/2025 9:15 AM EDT - 04/04/2025 11:59 PM EDT Hospital Encounter [facility] US PER DIAG CTR [address] [place] [phone] Nova Saxena MD Abnormal chromosomal and genetic finding on screening mother; Chronic hypertension affecting ; Cystic fibrosis carrier, antepartum; Class 3 severe obesity in adult, unspecified BMI, unspecified obesity type, unspecified whether serious comorbidity present Discharge Disposition: Home or Self Care 04/04/2025 Travel 02/28/2025 2:00 PM EDT - 02/28/2025 11:59 PM EDT Hospital Encounter [facility] US PER DIAG CTR [address] [place] [phone] Latrice Zimmer, Encounter for routine screening for malformation using ultrasonics; HTN in , chronic; Obesity in , antepartum; , unspecified gestational age Discharge Disposition: Home or Self Care 02/28/2025 2:00 PM EDT Office Visit [facility] MAT[facility] MEDICINE [address] [phone] Nova Saxena MD Abnormal chromosomal and genetic [...] or Tdap) 11/29/2022 013 ANNUAL PHYSICAL 02/06/2025 INFLUENZA VACCINE 03/30/2025 06/03/2017 COVID-19 Vaccine (4 - 2024-2 6 season) 2025 10/17/2021, 04/23/2021, 03/22/2021 RSV Vaccine - Adults (1 - Ri sk 1-dose series) 04/30/2025 Pneumococcal Vaccine 0-49 Completed 2002, 12/04/2002, 03/10/2002, Additional history exists HPV VACCINES Completed 08/17/2012, 03/31, 12/31/2011 HEPATITIS C SCREENING Completed 12/01/2024, 025 Procedures Procedure Name Priority Date/Time Associated Diagnosis Comments [facility] Routine 04/04/2025 9:47 AM EDT Abnormal chromosomal and genetic finding on screening mother Chronic hypertension affecting Cystic fibrosis carrier, antepartum Class 3 severe obesity in adult, unspecified BMI, unspecified obesity type, unspecified whether serious comorbidity present [facility] Routine 02/28/2025 3:11 PM EDT Encounter for routine screening for malformation using ultrasonics HTN in , chronic Obesity in , antepartum , unspecified gestational age from Last 3 Months Results * [facility] (04/04/2025 9:47 AM EDT) Only the most recent of2 resultswithin the time period is included. Anatomical Region Laterality Modality Ultrasound 04/04/2025 9:41 AM EDT Narrative 04/04/2025 10:18 AM EDT PAT NAME: NAYLA PARKS [facility] REC#: [id number] DA: 2000 PAT GEND: F PAT TYPE: O EXAM NIKI: [id number] REF PHYS LATRICE ZIMMER Comparison Studies The [...] EFW (oz) 2 oz EFW by: Hadlock (HVL-IN-VC-FL) Extended Cav. septi pel. tr 6.3 mm [...] Normal Heart / Thorax 3-vessel view: Normal 1-nnmvgn-dclkkez view: normal Cord insertion: Normal Stomach: Appears [...] here in 4 weeks. Coding ====== Description: 89609-67 Follow Up Truck Driver Instructor: Brittny Cazares RDMS Physician: Jean Felipe MD, FACOG Electronically signed by: Jean Felipe MD, FACOG at: 10:18 Procedure Note Mickey Felipe MD - 04/04/2025 PAT NAME: NAYLA PARKS MED REC#: [id number] DA: [id number] PAT GEND: F PAT TYPE: O EXAM NIKI: [id number] REF PHYS LATRICE ZIMMER Comparison Studies The findings of this study are compared to the prior ultrasound studydated 04/04/25. Patient Status Outpatient Indication ======== NIPT-No results, CF-carrier, chronic hypertension, MO BMI 48 Maternal Assessment Lgsnmc382 cm Height (ft)5 ft Height (in)6 in Hrfxjf182 kg Weight (lb)295 lb BMI47.98 kg/m Method ======= Transabdominal ultrasound examination. View: Limited by patient bodyhabitus ========= Liriano . Number of fetuses: 1 Dating ====== GA by prior zufgrqsmff75 w + 6 d KRISTY by prior [...] Hadlock Femur56.1 mm 29w 4d 54% Hadlock Ojdedbz82.9 mm 29w 6d 69% Arsalan HC / AC1.08 EFW1,411 g 29w 1d 62% Hadlock EFW (lb)3 lb EFW (oz)2 oz EFW by:Hadlock (JEW-UG-JF-FL) Extended Cav. septi pel. tr6.3 mm CM4.3 mm 2% Nicolaides Head / Face / Neck Cephalic index0.72 2% Nicolaides Extremities / Bony Struc FL / BPD0.78 FL / HC0.21 FL / AC0.22 Other Structures PMO982 bpm General Evaluation Cardiac activity present. FHR 145 bpm. movements present. Presentation cephalic. Placenta Placental site: posterior. Amniotic fluid Amount of AF: normal. MVP 4.8 cm. CRISTIANE 15.0 cm. Q1 4.5 cm,Q2 4.8 cm, Q3 3.2 cm, Q4 2.6 cm. Anatomy Cranium:Normal Cavum septi pellucidi:Normal Cerebellum:Normal Cisterna magna:Normal Lips:Normal Profile:Normal Nose:Normal 4-chamber view:Appears normal RVOT view:Normal LVOT view:Normal Heart / Thorax 3-vessel view:Normal 0-brkyuo-falbskj view:normal Cord insertion:Normal Stomach:Appears normal Kidneys:Appears normal [...] scheduled here in 4 weeks. Coding ====== Description:27712-05 Follow Up Truck Driver Instructor: Brittny Cazares RDMS Physician: Jean Felipe MD, FACOG Electronically signed by: Jean Felipe MD, FACOG at: 10:18 us Nova Saxena MD IMG US ORDERABLES Final Res ult from Last 3 Months Insurance [facility] PLAN OF [place] Care Teams Mutuel Cashier Relationship Specialty Start Date End Date Olive Pa PA [address] [place] [address] PCP - General 02/27/25
--- OUTSIDE RECORDS SUMMARY | 2025-05-15 12:56 | XMS_ITS | Clinical Summary ---
Author Organization [facility] Address [address] [place] [address] Phone Care Team Providers Care Form Drafter Name Role Phone Nain Velazquez MD Primary Care Provider + [phone] Allergies Active Allergy Reactions Criticality Noted Date [...] on 11/15/2024 oxymetazoline (AFRIN) 0.05 % Nasl [place], Non-AerosolIndi cations:Acute rhinitis 1 [place] by Nasal route 5 times daily as [...] Estimated Date of Delivery 11/15/2024 - Present (05/15/2025) 06/21/2025 (set by Lisa Fragoso RN on [...] of estimated date of delivery: No Thalassemia (Trinidadian, Kazakh, Mediterranean, or background): MCV less than 80: No Neural tube defect (Meningomyelocele, Spina bifida, or Anencephaly): No Congenital heart defect: Yes (Comment: FOB's paternal cousin - unknown cardiac defect, had multiple cardiac surgeries as a /toddler) Down syndrome: No Jack-Sachs (Ashkenazi Restorationism, Cajun, Spanish Rwandan): No Ab disease (Ashkenazi Restorationism): No Familial dysautonomia (Ashkenazi Restorationism): No Sickle cell disease or trait (): No Hemophilia or other blood disorders: No Muscular dystrophy: No Cystic fibrosis: No [place]'s chorea: No Intellectual disability and/or autism: No [...] Completed 08/17/2012, 03/31, 12/31/2011 Insurance Poonam Washburn [address] CHOICE PLUS [facility] COMMUNITY [facility]AN [place] [facility] GENERIC WORKERS' COMP on file CLAIMS MANAGEMENT INC [facility] [place] [address] [place] [address] Care Teams Form Drafter Relationship Specialty Start Date End Date Nain Velazquez MD [address] [place] [id number] PCP - General Emergency Medicine 10/15/22
--- NOTE | 2025-05-15 13:45 | US_ITS ---
PROCEDURE: US OB BIOPHYSICAL PROFILE CLINICAL INDICATION: Needs for CHTN w/ CRISTIANE COMPARISON: US US OB TRANSVAGINAL from 11/29/2024 US US OB TRANSVAGINAL from 12/01/2024 US US OB /MATERNAL DETAIL from 02/02/2025 FINDINGS: Transabdominal sonographic images of the uterus were obtained. From her established due date she is 34weeks 5days. The following parameters are obtained: Viable Fetus in the cephalic presentation with a posterior placenta grade 2. Average ultrasound age is 35weeks 6days Estimated weight 2,700g, 5 lb 15 oz Cervix measures 3.54 cm in length. Measurements: heart Rate = 160bpm BPD = 36weeks 4days, 92 percentile HC = 36weeks 4days, 62 percentile AC = 36weeks 0 days, 85 percentile FL = 34weeks 1day, 25 percentile HC/AC is 1.01 FL/BPD is 0.73 FL/AC is 0.21 70 percentile Amniotic fluid index: 11.74cm, MVP 3.38 cm Qualitative AFV:2 Breathing movements: 2 Gross Body Movements: 2 Tone: 2 Biophysical profile score: 8 Doppler evaluation of the umbilical artery: SD ratio: 2.59-3.39 normal Resistive index: 0.71 No obvious anomalies evident.Kidneys, stomach, bladder, three-vessel cord appear normal. There is mild bilateral renal pelvis dilation measuring 5.6 mm and 5.2 mm IMPRESSION: 1. Viable fetus in the cephalic presentation with posterior placenta grade 2. 2. The fluid is within normal limits with an amniotic fluid index 11.74 cm, MVP 3.38 cm. 3. Biophysical profile is 8/8 with good breathing movement and movement seen. 4. SD ratio is normal 2.59-3.39. 5. There has been good interval growth with the fetus currently 70th percentile. 6. There is mild bilateral renal pelvis dilation measuring 5.6 mm and 5.2 mm. Suggest follow-up . 7. The rest of the limited anatomical scan appears normal. Dictated by: Ruddy Pulido MD 05/15/2025 18:37 Ruddy Pulido MD in OV 05/15/2025 18:37
== END 2025-05-15 23:59 | disposition home or self-care (01) ==
LOC: RAD 12:55
PROVIDERS: PCP Physician Assistant; Visit Provider Obstetrics & Gynecology
DX: O10.913 Unspecified pre-existing hypertension complicating pregnancy, third trimester (principal); O99.213 Obesity complicating pregnancy, third trimester; E66.9 Obesity, unspecified; Z3A.34 34 weeks gestation of pregnancy
CPT/HCPCS: 76816; 76819; 76820; 86403

== ENCOUNTER 2025-05-17 17:32 | Outpatient (CLI) | payer OTHER, SELFPAY ==
--- OUTSIDE RECORDS SUMMARY | 2025-04-04 09:15 | XMS_ITS | Encounter Summary ---
Author Organization [facility] Address [address] [place] [address] Care Team Providers Care Practice Advisor Name Role Phone Olive Pa Primary Care Provider [phone] Reason for Referral * Diagnostic Imaging (Routine) - Closed Specialty Diagnoses / Procedures Referred By Cintia potter Referred To Contact Radiology Diagnoses Abnormal chromosomal and genetic finding on screening mother Chronic hypertension affecting Cystic fibrosis carrier, antepartum Class 3 severe obesity in adult, unspecified BMI, unspecified obesity type, unspecified whether serious comorbidity present Procedures [facility] Diagnostic [place] Nova Saxena MD [address] [place] [address] Phone: tel: fax: Referral ID Status Reason Start Date Expiration Date Visits Re quested Visits Authorized [id number] Closed 02/28/2025 05/30/2026 1 1 Reason for Visit * Diagnostic Imaging (Routine) - Closed Specialty Diagnoses / Procedures Referred By Cintia potter Referred To Contact Radiology Diagnoses Abnormal chromosomal and genetic finding on screening mother Chronic hypertension affecting Cystic fibrosis carrier, antepartum Class 3 severe obesity in adult, unspecified BMI, unspecified obesity type, unspecified whether serious comorbidity present Procedures [facility] Diagnostic [place] Nova Saxena MD [address] [place] [address] Phone: tel: fax: Referral ID Status Reason Start Date Expiration Date Visits Re quested Visits Authorized [id number] Closed 02/28/2025 05/30/2026 1 1 Encounter Details Date Type Department Care Team (Late st Contact Info) Description 04/04/2025 9:15 AM EDT - 04/04/2025 11:59 PM EDT [facility] [address] [facility] [place] [id number] Nova Saxena MD [address] [place] [address] Abnormal chromosomal and genetic finding [...] Procedure Name Priority Date/Time Associated Diagnosis Comments [facility] Routine 04/04/2025 9:47 AM EDT Abnormal chromosomal and genetic finding on screening mother Chronic hypertension affecting Cystic fibrosis carrier, antepartum Class 3 severe obesity in adult, unspecified BMI, unspecified obesity type, unspecified whether serious comorbidity present documented in this encounter Results * [facility] (04/04/2025 9:47 AM EDT) Anatomical Region Laterality Modality Ultrasound 04/04/2025 9:41 AM EDT Narrative 04/04/2025 10:18 AM EDT PAT NAME: NAYLA PARKS [facility] REC#: [id number] DA: [id number] PAT GEND: F PAT TYPE: O EXAM NIKI: [id number] REF PHYS KALYAN MARROQUIN Comparison Studies The [...] EFW (oz) 2 oz EFW by: Hadlock (AVJ-GB-AO-FL) Extended Cav. septi pel. tr 6.3 mm [...] Normal Heart / Thorax 3-vessel view: Normal 7-xlsfqc-eglhvlq view: normal Cord insertion: Normal Stomach: Appears [...] here in 4 weeks. Coding ====== Description: 32096-16 Follow Up Property Management Accountant: Brittny Cazares RDMS Physician: Jean Felipe MD, FACOG Electronically signed by: Jean Felipe MD, FACOG at: 10:18 Procedure Note Mickey Felipe MD - 04/04/2025 PAT NAME: NAYLA PARKS [facility] REC#: [id number] DA: [id number] PAT GEND: F PAT TYPE: O EXAM NIKI: [id number] REF PHYS KALYAN MARROQUIN Comparison Studies The findings of this study are compared to the prior ultrasound studydated 04/04/25. Patient Status Outpatient Indication ======== NIPT-No results, CF-carrier, chronic hypertension, [place] BMI 48 Maternal Assessment Lxbppo320 cm Height (ft)5 ft Height (in)6 in Ofmdmg382 kg Weight (lb)295 lb BMI47.98 kg/m Method ======= Transabdominal ultrasound examination. View: Limited by patient bodyhabitus ========= Liriano . Number of fetuses: 1 Dating ====== GA by prior tstcszkonp70 w + 6 d KRISTY by prior [...] GA28 w + 6 d Assigned KRISTY:06/21/2025 [id number] d Biometry Standard BPD72.1 mm 29w 0d 40% Hadlock OFD99.8 mm 32w 2d >99% Arsalan HC273.5 mm 29w 6d 47% Hadlock Cerebellum tr36.1 mm 29w 6d 87% Hill AC254.1 mm 29w 4d 66% Hadlock Femur56.1 mm 29w 4d 54% Hadlock Xyczprp05.9 mm 29w 6d 69% Arsalan HC / AC1.08 EFW1,411 g 29w 1d 62% Hadlock EFW (lb)3 lb EFW (oz)2 oz EFW by:Hadlock (RQW-FQ-EY-FL) Extended Cav. septi pel. tr6.3 mm CM4.3 mm 2% Nicolaides Head / Face / Neck Cephalic index0.72 2% Nicolaides Extremities / Bony Struc FL / BPD0.78 FL / HC0.21 FL / AC0.22 Other Structures JXR634 bpm General Evaluation Cardiac activity present. FHR 145 bpm. movements present. Presentation cephalic. Placenta Placental site: posterior. Amniotic fluid Amount of AF: normal. MVP 4.8 cm. CRISTIANE 15.0 cm. Q1 4.5 cm,Q2 4.8 cm, Q3 3.2 cm, Q4 2.6 cm. Anatomy Cranium:Normal Cavum septi pellucidi:Normal Cerebellum:Normal Cisterna magna:Normal Lips:Normal Profile:Normal Nose:Normal 4-chamber view:Appears normal RVOT view:Normal LVOT view:Normal Heart / Thorax 3-vessel view:Normal 5-pwsaag-muwuaxn view:normal Cord insertion:Normal Stomach:Appears normal Kidneys:Appears normal Bladder:Appears normal Gender:female Wants to know gender:yes Maternal Structures Uterus / Cervix Cervical sviakd44.7 mm Doppler Arterial Umbilical A PI1.11 73% [...] scheduled here in 4 weeks. Coding ====== Description:17792-72 Follow Up Property Management Accountant: Brittny Cazares RDMS Physician: Jean Felipe MD, [...] present documented in this encounter Care Teams Practice Advisor Relationship Specialty Start Date End Date Olive Pa PA [address] [place] [address] PCP - General 02/27/25 documented as of this encounter
--- OUTSIDE RECORDS SUMMARY | 2025-04-04 09:15 | XMS_ITS | Encounter Summary ---
Author Organization [facility] Address [address] [place] [id number] Care Team Providers Care Hardwood Floor Finisher Name Role Phone Olive Pa Primary Care Provider [phone] Reason for Referral * Diagnostic Imaging (Routine) - Authorized Specialty Diagnoses / Procedures Referred By Cintia potter Referred To Contact Radiology Diagnoses Chronic hypertension affecting Abnormal chromosomal and genetic finding on screening mother , unspecified gestational age Morbid obesity with BMI of 45.0-49.9, adult Procedures [facility] Mickey Felipe MD [address] [facility] [address] [place] [address] Phone: tel: fax: [facility] [address] [place] [address] Phone: tel: Referral ID Status Reason Start Date Expiration Date V isits Requested Visits Authorized [id number] Authorized 04/04/2025 07/04/2026 1 1 Reason for Visit * Reason Comments MO; CHTN; CF carrier Encounter Details Date Type Department Care Team ([facility] Contact Info) Description 04/04/2025 9:15 AM EDT Office Visit [facility] MEDICAL [facility] MATERNAL MEDICINE [address] [facility] [address] [place] [phone] Mickey Felipe MD [address] [facility] [address] [place] [address] Chronic hypertension affecting (Primary Dx); Abnormal chromosomal [...] Patient reports next follow-up appointment with Dr. iZmmer's office is tomorrow. * Mickey Felipe MD [...] CF carrier Subjective History of Present Illness: Olag Parks is a 24 y.o. 28w6d who [...] she notices any decreased movement. Orders: - [facility]; Future 2. Abnormal chromosomal and genetic finding on screening mother - [facility] [place]; Future 3. , unspecified gestational age - [facility] [place]; Future 4. Morbid obesity with BMI of 45.0-49.9, adult - [facility] [place]; Future Follow Up Return in about 4 [...] or [facility]. Mickey Felipe MD Maternal Medicine, [facility] [place] 04/04/2025 documented in this encounter Plan of Treatment Scheduled Orders Name Type Priority Associated Diagnoses Orde r Schedule [facility] Imaging Routine Chronic hypertension [...] adult documented in this encounter Care Teams Hardwood Floor Finisher Relationship Specialty Start Date End Date Olive Pa PA [address] [place] [address] PCP - General 02/27/25 documented as of this encounter
--- OUTSIDE RECORDS SUMMARY | 2025-05-17 17:36 | XMS_ITS | Clinical Summary ---
Author Organization [facility] Address [address] [place] [address] Phone Care Team Providers Care Cosmetic Sales Assistant Name Role Phone Nain Velazquez MD Primary Care Provider + [phone] Allergies Active Allergy Reactions Criticality Noted Date [...] on 11/15/2024 oxymetazoline (AFRIN) 0.05 % Nasl [place], Non-AerosolIndi cations:Acute rhinitis 1 [place] by Nasal route 5 times daily as [...] Estimated Date of Delivery 11/15/2024 - Present (05/17/2025) 06/21/2025 (set by Lisa Fragoso RN on [...] of estimated date of delivery: No Thalassemia (Hong Konger, Kiswahili, Mediterranean, or background): MCV less than 80: No Neural tube defect (Meningomyelocele, Spina bifida, or Anencephaly): No Congenital heart defect: Yes (Comment: FOB's paternal cousin - unknown cardiac defect, had multiple cardiac surgeries as a /toddler) Down syndrome: No Jack-Sachs (Ashkenazi Alevism, Cajun, Urdu Citizen Of [place]): No Ab disease (Ashkenazi Alevism): No Familial dysautonomia (Ashkenazi Alevism): No Sickle cell disease or trait (): No Hemophilia or other blood disorders: No Muscular dystrophy: No Cystic fibrosis: No [place]'s chorea: No Intellectual disability and/or autism: No [...] Completed 08/17/2012, 03/31, 12/31/2011 Insurance Poonam Washburn [address] CHOICE PLUS [facility] COMM[facility] [place] [facility] GENERIC WORK[facility]' COMP on file CLAIMS MANAGEMENT INC [facility] COMM[facility] [place] [address] [place] [address] Care Teams Cosmetic Sales Assistant Relationship Specialty Start Date End Date Nain Velazquez MD [address] [place] [id number] PCP - General Emergency Medicine 10/15/22
--- OUTSIDE RECORDS SUMMARY | 2025-05-17 17:36 | XMS_ITS | Clinical Summary ---
Author Organization [facility] Address [address] [place] [address] Care Team Providers Care Incinerator Plant Laborer Name Role Phone Olive Pa Primary Care Provider Allergies Active Allergy Reactions Criticality Noted Date [...] Description 04/04/2025 9:15 AM EDT Office Visit [facility] [address] [phone] Mickey Felipe MD Chronic hypertension affecting (Primary Dx); Abnormal chromosomal and genetic finding on screening mother; , unspecified gestational age; Morbid obesity with BMI of 45.0-49.9, adult 04/04/2025 9:15 AM EDT - 04/04/2025 11:59 PM EDT Hospital Encounter [facility] US PER DIAG [facility] [address] [place] [id number] Nova Saxena MD Abnormal chromosomal and genetic finding on screening mother; Chronic hypertension affecting ; Cystic fibrosis carrier, antepartum; Class 3 severe obesity in adult, unspecified BMI, unspecified obesity type, unspecified whether serious comorbidity present Discharge Disposition: Home or Self Care 04/04/2025 Travel 02/28/2025 2:00 PM EDT - 02/28/2025 11:59 PM EDT Hospital Encounter [facility] US PER DIAG [facility] [address] [place] [phone] Kalyan Zimmer, Encounter for routine screening for malformation using ultrasonics; HTN in , chronic; Obesity in , antepartum; , unspecified gestational age Discharge Disposition: Home or Self Care 02/28/2025 2:00 PM EDT Office Visit [facility] [address] [phone] Nova Saxena MD Abnormal chromosomal and genetic [...] ANNUAL PHYSICAL 02/06/2025 INFLUENZA VACCINE 03/30/2025 06/03/2017 RSV Vaccine - Adults (1 - Ri sk 1-dose series) 04/30/2025 Pneumococcal Vaccine 0-49 Completed 2002, 12/04/2002, 03/10/2002, Additional history exists HPV VACCINES Completed 08/17/2012, 03/31, 12/31/2011 HEPATITIS C SCREENING Completed 12/01/2024, 025 Procedures Procedure Name Priority Date/Time Associated Diagnosis Comments [facility] Routine 04/04/2025 9:47 AM EDT Abnormal chromosomal and genetic finding on screening mother Chronic hypertension affecting Cystic fibrosis carrier, antepartum Class 3 severe obesity in adult, unspecified BMI, unspecified obesity type, unspecified whether serious comorbidity present [facility] Routine 02/28/2025 3:11 PM EDT Encounter for routine screening for malformation using ultrasonics HTN in , chronic Obesity in , antepartum , unspecified gestational age from Last 3 Months Results * [facility] (04/04/2025 9:47 AM EDT) Only the most recent of2 resultswithin the time period is included. Anatomical Region Laterality Modality Ultrasound 04/04/2025 9:41 AM EDT Narrative 04/04/2025 10:18 AM EDT PAT NAME: NAYLA PARKS [facility] REC#: [id number] DA: 2000 PAT GEND: F PAT TYPE: O EXAM NIKI: [id number] REF PHYS KALYAN ZIMMER Comparison Studies The [...] EFW (oz) 2 oz EFW by: Hadlock ([id number]) Extended Cav. septi pel. tr 6.3 mm [...] Normal Heart / Thorax 3-vessel view: Normal 6-jbnmyw-jpolgxu view: normal Cord insertion: Normal Stomach: Appears [...] here in 4 weeks. Coding ====== Description: [id number] Follow Up Joinery Machinist: Brittny Cazares RDMS Physician: Jean Felipe MD, FACOG Electronically signed by: Jean Felipe MD, FACOG at: 10:18 Procedure Note Mickey Felipe MD - 04/04/2025 PAT NAME: NAYLA PARKS [facility] REC#: [id number] DA: [id number] PAT GEND: F PAT TYPE: O EXAM NIKI: [id number] REF PHYS KALYAN ZIMMER Comparison Studies The findings of this study are compared to the prior ultrasound studydated 04/04/25. Patient Status Outpatient Indication ======== NIPT-No results, CF-carrier, chronic hypertension, MO BMI 48 Maternal Assessment Grgrmg538 cm Height (ft)5 ft Height (in)6 in Xmmskh842 kg Weight (lb)295 lb BMI47.98 kg/m Method ======= Transabdominal ultrasound examination. View: Limited by patient bodyhabitus ========= Liriano . Number of fetuses: 1 Dating ====== GA by prior [id number] w + 6 d KRISTY by prior [...] GA28 w + 6 d Assigned KRISTY:06/21/2025 [id number] d Biometry Standard BPD72.1 mm 29w 0d 40% Hadlock OFD99.8 mm 32w 2d >99% Arsalan HC273.5 mm 29w 6d 47% Hadlock Cerebellum tr36.1 mm 29w 6d 87% Hill AC254.1 mm 29w 4d 66% Hadlock Femur56.1 mm 29w 4d 54% Hadlock Kbqcuiy20.9 mm 29w 6d 69% Arsalan HC / AC1.08 EFW1,411 g 29w 1d 62% Hadlock EFW (lb)3 lb EFW (oz)2 oz EFW by:Hadlock ([id number]-FL) Extended Cav. septi pel. tr6.3 mm CM4.3 mm 2% Nicolaides Head / Face / Neck Cephalic index0.72 2% Nicolaides Extremities / Bony Struc FL / BPD0.78 FL / HC0.21 FL / AC0.22 Other Structures [id number] bpm General Evaluation Cardiac activity present. FHR 145 bpm. movements present. Presentation cephalic. Placenta Placental site: posterior. Amniotic fluid Amount of AF: normal. MVP 4.8 cm. CRISTIANE 15.0 cm. Q1 4.5 cm,Q2 4.8 cm, Q3 3.2 cm, Q4 2.6 cm. Anatomy Cranium:Normal Cavum septi pellucidi:Normal Cerebellum:Normal Cisterna magna:Normal Lips:Normal Profile:Normal Nose:Normal 4-chamber view:Appears normal RVOT view:Normal LVOT view:Normal Heart / Thorax 3-vessel view:Normal 8-lujsyn-pzduxmm view:normal Cord insertion:Normal Stomach:Appears normal Kidneys:Appears normal Bladder:Appears normal Gender:female Wants to know gender:yes Maternal Structures Uterus / Cervix Cervical erntjr61.7 mm Doppler Arterial Umbilical A PI1.11 73% [...] scheduled here in 4 weeks. Coding ====== Description:21131-12 Follow Up Joinery Machinist: Brittny Cazares RDMS Physician: Jean Felipe MD, FACOG Electronically signed by: Jean Felipe MD, SANDRAOG at: 10:18 us Nova Saxena MD IMG US ORDERABLES Final Res ult from Last 3 Months Insurance [facility] Care Teams Incinerator Plant Laborer Relationship Specialty Start Date End Date Olive Pa PA [address] [place] [address] PCP - General 02/27/25
--- OUTSIDE RECORDS SUMMARY | 2025-05-17 17:37 | XMS_ITS | Encounter Summary ---
Author Organization [facility] Address [address] [place] [id number] Care Team Providers Care Debate Director Name Role Phone Olive Pa Primary Care Provider [phone] Encounter Details Date Type Department Care Team [...] on filedocumented in this encounter Care Teams Debate Director Relationship Specialty Start Date End Date Olive Pa PA [address] [place] [address] PCP - General 02/27/25 documented as of this encounter
[2025-05-17 17:44] VITALS: BMI 48.6
[2025-05-17 17:48] LABS: Microscopic, Urine URINE MICROSCOPIC (MICROSCOPIC)
[2025-05-17 18:04] VITALS: BP 136/87; PULSE 96; RESP 17; TEMP 37.3; O2SAT 97; BMI 48.6
[2025-05-17 18:17] LABS: Bilirubin,Urine Negative (Negative); Color,Urine YELLOW (Yellow); Glucose,Urine (UA) Negative (Negative); Ketones,Urine Negative (Negative); Leukocyte Esterase,Urine 1+ (Negative); PH,Urine 7.0 (5.0-8.5); Protein,Urine TRACE (Negative); Specific Gravity, Urine 1.015 (1.005-1.030); Urobilinogen,Urine 0.2 EU/dl (0.2)
[2025-05-17 18:46] LABS: Bacteria,Urine 4+ /lpf
[2025-05-17] MEDS: LACTATED RINGERS 1000ML 1,000 ML 999 ML IV (19:32)
[2025-05-17 19:44] LABS: Hematocrit 30.6 % (37.0-47.0); Hemoglobin 10.3 g/dL (12.2-16.2); Immature Granulocytes % 0.3 %; Mean Corpuscular HGB Conc 33.7 g/dL (31.8-35.4); Mean Corpuscular Hemoglobin 29.1 pg (27.0-31.2); Mean Corpuscular Volume 86.4 fl (81-99); Nucleated Red Blood Cells % 0 %; Platelet Count 248 K/mm3 (142-424); Red Blood Count 3.54 M/mm3 (4.20-5.40); Red Cell Distribution Width-SD 44.7 fL; White Blood Count 7.4 K/mm3 (4.8-10.8)
[2025-05-17 20:25] LABS: Albumin Level 3.6 g/dl (3.5-5.0); Chloride 107 mmol/L (98-107); Potassium 4.4 mmoL/L (3.5-5.1); Sodium 134 mmol/L (136-145)
[2025-05-17 20:28] LABS: Alanine Aminotransferase 10 U/L (12-78); Albumin/Globulin Ratio 1.1 (1.1-1.8); Alkaline Phosphatase 142 U/L (38-126); Anion Gap 12.4 mEq/L (5-15); Aspartate Amino Transferase 25 U/L (14-36); Bilirubin,Total 0.4 mg/dl (0.2-1.3); Blood Urea Nitrogen 6 mg/dl (7-17); Carbon Dioxide 19 mmol/L (22.0-30.0); Creatinine Clearance Estimated 164 mL/min (50-200); Creatinine,Serum 0.50 mg/dl (0.52-1.04); Estimated Glomerular Filt Rate 153 ml/min (>60); GFR (African American) 185 ML/MIN (>60); Globulin 3.3 g/dL (1.3-3.2); Total Protein,Serum 6.9 g/dl (6.3-8.2)
[2025-05-17 20:29] LABS: Calcium 9.6 mg/dl (8.4-10.2); Glucose 84 mg/dl (74-100)
== END 2025-05-17 21:40 | disposition home or self-care (01) ==
LOC: OBOUT 17:35 → OB 17:35
PROVIDERS: PCP Physician Assistant; Visit Provider Obstetrics & Gynecology
DX: O26.893 Other specified pregnancy related conditions, third trimester (principal); M54.9 Dorsalgia, unspecified; R10.9 Unspecified abdominal pain; Z3A.35 35 weeks gestation of pregnancy
CPT/HCPCS: 59025; 80053; 81001; 85025; 87086; 96360; 99212; G0463; J7120

== ENCOUNTER 2025-05-22 14:12 | Outpatient (CLI) | payer OTHER, SELFPAY ==
--- OUTSIDE RECORDS SUMMARY | 2025-04-04 09:15 | XMS_ITS | Encounter Summary ---
Author Organization [facility] Address [address] [place] [address] Care Team Providers Care Coffee Attendant Name Role Phone Olive Pa Primary Care Provider [phone] Reason for Referral * Diagnostic Imaging (Routine) - Closed Specialty Diagnoses / Procedures Referred By Cintia potter Referred To Contact Radiology Diagnoses Abnormal chromosomal and genetic finding on screening mother Chronic hypertension affecting Cystic fibrosis carrier, antepartum Class 3 severe obesity in adult, unspecified BMI, unspecified obesity type, unspecified whether serious comorbidity present Procedures [facility] [place] Nova Saxena MD [address] [place] [address] Phone: tel: fax: Referral ID Status Reason Start Date Expiration Date Visits Re quested Visits Authorized [id number] Closed 02/28/2025 05/30/2026 1 1 Reason for Visit * Diagnostic Imaging (Routine) - Closed Specialty Diagnoses / Procedures Referred By Cintia potter Referred To Contact Radiology Diagnoses Abnormal chromosomal and genetic finding on screening mother Chronic hypertension affecting Cystic fibrosis carrier, antepartum Class 3 severe obesity in adult, unspecified BMI, unspecified obesity type, unspecified whether serious comorbidity present Procedures [facility] [place] Nova Saxena MD [address] [place] [address] Phone: tel: fax: Referral ID Status Reason Start Date Expiration Date Visits Re quested Visits Authorized [id number] Closed 02/28/2025 05/30/2026 1 1 Encounter Details Date Type Department Care Team (Late st Contact Info) Description 04/04/2025 9:15 AM EDT - 04/04/2025 11:59 PM EDT Hospital Encounter [facility] PER DIAG CTR [address] [facility] [place] [address] Nova Saxena MD [address] [place] [address] Abnormal chromosomal and genetic finding on screening mother; Chronic hypertension affecting ; Cystic fibrosis carrier, antepartum; Class 3 severe obesity in adult, unspecified BMI, unspecified obesity type, unspecified whether serious comorbidity present Discharge Disposition: Home or Self Care Social [...] Night As Needed for Sleep or Nausea. famotidine (PEPCID) 10 MG tablet Take 1 tablet by mouth 2 (Two) Times a Day. labetalol (NORMODYNE) 200 MG tablet Take 1 tablet by mouth Every 12 (Twelve) Hours. 01/16/2025 MV-Min-Fe Fum-FA-DHA ( 1 PO) Take 1 tablet by mouth Daily. sertraline (ZOLOFT) 100 MG tablet Take 1 tablet by mouth Daily. 02/24/2014 vitamin B-6 (PYRIDOXINE) 50 MG tablet Take 1 tablet by mouth Daily. ondansetron (ZOFRAN) 4 MG tablet Take 1 tablet by mouth Every 6 (Six) Hours As Needed. for nausea 12/01/2024 documented as of this encounter Plan of Treatment Not on file documented as of this encounter Procedures Procedure Name Priority Date/Time Associated Diagnosis Comments [facility] Routine 04/04/2025 9:47 AM EDT Abnormal chromosomal and genetic finding on screening mother Chronic hypertension affecting Cystic fibrosis carrier, antepartum Class 3 severe obesity in adult, unspecified BMI, unspecified obesity type, unspecified whether serious comorbidity present documented in this encounter Results * [facility] (04/04/2025 9:47 AM EDT) Anatomical Region Laterality Modality Ultrasound 04/04/2025 9:41 AM EDT Narrative 04/04/2025 10:18 AM EDT PAT NAME: NAYLA PARKS [facility] REC#: [id number] DA: [id number] PAT GEND: F PAT TYPE: O EXAM NIKI: [id number] REF PHYS KALYAN MARROQUIN Comparison Studies The findings of this study [...] EFW (oz) 2 oz EFW by: Hadlock ([id number]-[id number]-FL) Extended Cav. septi pel. tr 6.3 mm [...] Normal Heart / Thorax 3-vessel view: Normal 5-hjveab-uneljsg view: normal Cord insertion: Normal Stomach: Appears [...] here in 4 weeks. Coding ====== Description: 08828-78 Follow Up Valve Inspector: Brittny Cazares RDMS Physician: Jean Felipe MD, FACOG Electronically signed by: Jean Felipe MD, FACOG at: 10:18 Procedure Note Mickey Felipe MD - 04/04/2025 PAT NAME: NAYLA PARKS [facility] REC#: [id number] DA: [id number] PAT GEND: F PAT TYPE: O EXAM NIKI: [id number] REF PHYS KALYAN MARROQUIN Comparison Studies The findings of this study are compared to the prior ultrasound studydated 04/04/25. Patient Status Outpatient Indication ======== NIPT-No results, CF-carrier, chronic hypertension, MO BMI 48 Maternal Assessment Sqgrpe553 cm Height (ft)5 ft Height (in)6 in Zjgjhi904 kg Weight (lb)295 lb BMI47.98 kg/m Method ======= Transabdominal ultrasound examination. View: Limited by patient bodyhabitus ========= Liriano . Number of fetuses: 1 Dating ====== GA by prior [id number] w + 6 d KRISTY by prior [...] GA28 w + 6 d Assigned KRISTY:06/21/2025 d Biometry Standard BPD72.1 mm 29w 0d 40% Hadlock OFD99.8 mm 32w 2d >99% Arsalan HC273.5 mm 29w 6d 47% Hadlock Cerebellum tr36.1 mm 29w 6d 87% Hill AC254.1 mm 29w 4d 66% Hadlock Femur56.1 mm 29w 4d 54% Hadlock Cctypli06.9 mm 29w 6d 69% Arsalan HC / AC1.08 EFW1,411 g 29w 1d 62% Hadlock EFW (lb)3 lb EFW (oz)2 oz EFW by:Hadlock (MHF-AV-[id number]-FL) Extended Cav. septi pel. tr6.3 mm CM4.3 mm 2% Nicolaides Head / Face / Neck Cephalic index0.72 2% Nicolaides Extremities / Bony Struc FL / BPD0.78 FL / HC0.21 FL / AC0.22 Other Structures IUX333 bpm General Evaluation Cardiac activity present. FHR 145 bpm. movements present. Presentation cephalic. Placenta Placental site: posterior. Amniotic fluid Amount of AF: normal. MVP 4.8 cm. CRISTIANE 15.0 cm. Q1 4.5 cm,Q2 4.8 cm, Q3 3.2 cm, Q4 2.6 cm. Anatomy Cranium:Normal Cavum septi pellucidi:Normal Cerebellum:Normal Cisterna magna:Normal Lips:Normal Profile:Normal Nose:Normal 4-chamber view:Appears normal RVOT view:Normal LVOT view:Normal Heart / Thorax 3-vessel view:Normal 3-jfvocg-dlmmvlu view:normal Cord insertion:Normal Stomach:Appears normal Kidneys:Appears normal Bladder:Appears normal Gender:female Wants to know gender:yes Maternal Structures Uterus / Cervix Cervical lasest96.7 mm Doppler Arterial Umbilical A PI1.11 73% Catie Umbilical A RI0.66 55% Catie Umbilical A PS23.37 cm/s <1% Ebbing Umbilical A ED7.88 cm/s Umbilical A TAmax13.92 cm/s <1% Ebbing Umbilical A MD7.14 cm/s Umbilical A S / D2.97 52% Catie Umbilical A HR148 bpm Biophysical Profile 2: breathing movements 2: Gross body movements 2: tone 2: Amniotic fluid volume 8/8 Biophysical profile score Consultation / Office Visit Office note to follow Impression ========= Size consistent with dates. No anomalies were identified. Amniotic fluid volume is normal. Umbilical artery S/D ratio is normal. Patient counseled re movement. Recommendation We recommend evaluation in 4 weeks. Follow up appointment scheduled here in 4 weeks. Coding ====== Description:[id number] Follow Up Valve Inspector: Brittny Cazares RDMS Physician: Jean Felipe MD, FACOG Electronically signed by: Jean Felipe MD, FACOG at: 10:18 us Nova Saxena MD IMG US ORDERABLES Final Res ult documented in this encounter Visit Diagnoses Diagnosis Abnormal chromosomal and genetic finding on screening mother Chronic hypertension affecting Cystic fibrosis carrier, antepartum Class 3 severe obesity in adult, unspecified BMI, unspecified obesity type, unspecified whether serious comorbidity present documented in this encounter Care Teams Coffee Attendant Relationship Specialty Start Date End Date Olive Pa PA [address] [place] [address] PCP - General 02/27/25 documented as of this encounter
--- OUTSIDE RECORDS SUMMARY | 2025-04-04 09:15 | XMS_ITS | Encounter Summary ---
Author Organization [facility] Address [address] [place] [id number] Care Team Providers Care Car Inspection And Repair Manager Name Role Phone Olive Pa Primary Care Provider Reason for Referral * Diagnostic Imaging (Routine) - Authorized Specialty Diagnoses / Procedures Referred By Cintia potter Referred To Contact Radiology Diagnoses Chronic hypertension affecting Abnormal chromosomal and genetic finding on screening mother , unspecified gestational age Morbid obesity with BMI of 45.0-49.9, adult Procedures [facility] Mickey Felipe MD [address] [facility] [address] [place] [address] Phone: tel: fax: [facility] US PER DIAG CTR [address] [place] [address] Phone: tel: Referral ID Status Reason Start Date Expiration Date V isits Requested Visits Authorized [id number] Authorized 04/04/2025 07/04/2026 1 1 Reason for Visit * Reason Comments MO; CHTN; CF carrier Encounter Details Date Type Department Care Team ([facility] Contact Info) Description 04/04/2025 9:15 AM EDT Office Visit [facility] MEDICAL [facility] MATERNAL MEDICINE [address] [facility] [address] [place] [phone] Mickey Felipe MD [address] [facility] [address] [place] [address] Chronic hypertension affecting (Primary Dx); Abnormal chromosomal [...] she notices any decreased movement. Orders: - [facility]; Future 2. Abnormal chromosomal and genetic finding on screening mother - [facility] [place]; Future 3. , unspecified gestational age - [facility] [place]; Future 4. Morbid obesity with BMI of 45.0-49.9, adult - [facility] [place]; Future Follow Up Return in about 4 [...] or CVS. Mickey Felipe MD Maternal Medicine, [facility] [place] 04/04/2025 documented in this encounter Plan of Treatment Scheduled Orders Name Type Priority Associated Diagnoses Orde r Schedule [facility] Imaging Routine Chronic hypertension [...] adult documented in this encounter Care Teams Car Inspection And Repair Manager Relationship Specialty Start Date End Date Olive Pa PA [address] [place] [address] PCP - General 02/27/25 documented as of this encounter
[2025-05-22] VITALS (8 sets, daily range): BP systolic 130–141; BP diastolic 84–95; PULSE 89; RESP 17; TEMP 37; O2SAT 100; BMI 48.7
--- OUTSIDE RECORDS SUMMARY | 2025-05-22 14:16 | XMS_ITS | Clinical Summary ---
Author Organization [facility] Address [address] [place] [address] Care Team Providers Care Senior Product Integrity Engineer Name Role Phone Olive Pa Primary Care Provider [phone] Allergies Active Allergy Reactions Criticality Noted Date [...] Description 04/04/2025 9:15 AM EDT Office Visit [facility] MATERNAL MEDICINE [address] [phone] Mickey Felipe MD Chronic hypertension affecting (Primary Dx); Abnormal chromosomal and genetic finding on screening mother; , unspecified gestational age; Morbid obesity with BMI of 45.0-49.9, adult 04/04/2025 9:15 AM EDT - 04/04/2025 11:59 PM EDT Hospital Encounter [facility] US PER DIAG CTR [address] [place] [phone] Nova Saxena MD Abnormal chromosomal and genetic finding on screening mother; Chronic hypertension affecting ; Cystic fibrosis carrier, antepartum; Class 3 severe obesity in adult, unspecified BMI, unspecified obesity type, unspecified whether serious comorbidity present Discharge Disposition: Home or Self Care 04/04/2025 Travel 02/28/2025 2:00 PM EDT - 02/28/2025 11:59 PM EDT Hospital Encounter [facility] US PER DIAG CTR [address] [place] [phone] Kalyan Zimmer, Encounter for routine screening for malformation using ultrasonics; HTN in , chronic; Obesity in , antepartum; , unspecified gestational age Discharge Disposition: Home or Self Care 02/28/2025 2:00 PM EDT Office Visit [facility] MATERNAL MEDICINE [address] [phone] Nova Saxena MD Abnormal chromosomal and genetic [...] Procedure Name Priority Date/Time Associated Diagnosis Comments [facility] Routine 04/04/2025 9:47 AM EDT Abnormal chromosomal and genetic finding on screening mother Chronic hypertension affecting Cystic fibrosis carrier, antepartum Class 3 severe obesity in adult, unspecified BMI, unspecified obesity type, unspecified whether serious comorbidity present [facility] Routine 02/28/2025 3:11 PM EDT Encounter for routine screening for malformation using ultrasonics HTN in , chronic Obesity in , antepartum , unspecified gestational age from Last 3 Months Results * [facility] (04/04/2025 9:47 AM EDT) Only the most recent of2 resultswithin the time period is included. Anatomical Region Laterality Modality Ultrasound 04/04/2025 9:41 AM EDT Narrative 04/04/2025 10:18 AM EDT PAT NAME: NAYLA PARKS [facility] REC#: [id number] DA: 2000 PAT GEND: F PAT TYPE: O EXAM NIKI: [id number] REF PHYS KALYAN ZIMMER Comparison Studies The [...] EFW (oz) 2 oz EFW by: Hadlock ([id number]-FL) Extended Cav. septi pel. tr 6.3 mm [...] Normal Heart / Thorax 3-vessel view: Normal 1-znyszp-kxjepby view: normal Cord insertion: Normal Stomach: Appears [...] here in 4 weeks. Coding ====== Description: 19475-53 Follow Up Acute Care Nursing Assistant: Britnty Cazares RDMS Physician: Jean Felipe MD, FACOG Electronically signed by: Jean Felipe MD, FACOG at: 10:18 Procedure Note Mickey Felipe MD - 04/04/2025 PAT NAME: NAYLA PARKS MED REC#: [id number] DA: [id number] PAT GEND: F PAT TYPE: O EXAM NIKI: [id number] REF PHYS KALYAN ZIMMER Comparison Studies The findings of this study are compared to the prior ultrasound studydated 04/04/25. 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 View: Limited by patient bodyhabitus ========= Liriano . Number of fetuses: 1 Dating ====== GA by prior urbpetzdhb61 w + 6 d KRISTY by prior [...] GA28 w + 6 d Assigned KRISTY:06/21/2025 [id number] d Biometry Standard BPD72.1 mm 29w 0d 40% Hadlock OFD99.8 mm 32w 2d >99% Arsalan HC273.5 mm 29w 6d 47% Hadlock Cerebellum tr36.1 mm 29w 6d 87% Hill AC254.1 mm 29w 4d 66% Hadlock Femur56.1 mm 29w 4d 54% Hadlock Gwfjfsz76.9 mm 29w 6d 69% Arsalan HC / AC1.08 EFW1,411 g 29w 1d 62% Hadlock EFW (lb)3 lb EFW (oz)2 oz EFW by:Hadlock (KEE-UR-[id number]-FL) Extended Cav. septi pel. tr6.3 mm CM4.3 mm 2% Nicolaides Head / Face / Neck Cephalic index0.72 2% Nicolaides Extremities / Bony Struc FL / BPD0.78 FL / HC0.21 FL / AC0.22 Other Structures YQH872 bpm General Evaluation Cardiac activity present. FHR 145 bpm. movements present. Presentation cephalic. Placenta Placental site: posterior. Amniotic fluid Amount of AF: normal. MVP 4.8 cm. CRISTIANE 15.0 cm. Q1 4.5 cm,Q2 4.8 cm, Q3 3.2 cm, Q4 2.6 cm. Anatomy Cranium:Normal Cavum septi pellucidi:Normal Cerebellum:Normal Cisterna magna:Normal Lips:Normal Profile:Normal Nose:Normal 4-chamber view:Appears normal RVOT view:Normal LVOT view:Normal Heart / Thorax 3-vessel view:Normal 9-etblvs-jhswtnf view:normal Cord insertion:Normal Stomach:Appears normal Kidneys:Appears normal Bladder:Appears normal Gender:female Wants to know gender:yes Maternal Structures Uterus / Cervix Cervical dthooe97.7 mm Doppler Arterial Umbilical A PI1.11 73% [...] scheduled here in 4 weeks. Coding ====== Description:29974-94 Follow Up Acute Care Nursing Assistant: Brittny Cazares RDMS Physician: Jean Felipe MD, FACOG Electronically signed by: Jean Felipe MD, SANDRAOG at: 10:18 us Nova Saxena MD IMG US ORDERABLES Final Res ult from Last 3 Months Insurance [facility] Care Teams Senior Product Integrity Engineer Relationship Specialty Start Date End Date Olive Pa PA [address] [place] [address] PCP - General 02/27/25
--- OUTSIDE RECORDS SUMMARY | 2025-05-22 14:16 | XMS_ITS | Encounter Summary ---
Author Organization [facility] Address [address] [place] [id number] Care Team Providers Care Assembly Operator Name Role Phone Olive Pa Primary Care Provider [phone] Encounter Details Date Type Department Care Team [...] on filedocumented in this encounter Care Teams Assembly Operator Relationship Specialty Start Date End Date Olive Pa PA [address] [place] [address] PCP - General 02/27/25 documented as of this encounter
--- OUTSIDE RECORDS SUMMARY | 2025-05-22 14:16 | XMS_ITS | Clinical Summary ---
Author Organization [facility] Address [address] [place] [address] Phone Care Team Providers Care Publications Inspector Name Role Phone Nain Velazquez MD Primary Care Provider + [phone] Allergies Active Allergy Reactions Criticality Noted Date [...] on 11/15/2024 oxymetazoline (AFRIN) 0.05 % Nasl [place], Non-AerosolIndi cations:Acute rhinitis 1 [place] by Nasal route 5 times daily as [...] Estimated Date of Delivery 11/15/2024 - Present (05/22/2025) 06/21/2025 (set by Lisa Fragoso RN on [...] of estimated date of delivery: No Thalassemia (East Timorese, Tamazight, Mediterranean, or background): MCV less than 80: No Neural tube defect (Meningomyelocele, Spina bifida, or Anencephaly): No Congenital heart defect: Yes (Comment: FOB's paternal cousin - unknown cardiac defect, had multiple cardiac surgeries as a /toddler) Down syndrome: No Jack-Sachs (Ashkenazi Advent, Cajun, Vietnamese Bulgarian): No Ab disease (Ashkenazi Advent): No Familial dysautonomia (Ashkenazi Advent): No Sickle cell disease or trait (): No Hemophilia or other blood disorders: No Muscular dystrophy: No Cystic fibrosis: No [place]'s chorea: No Intellectual disability and/or autism: No [...] Completed 08/17/2012, 03/31, 12/31/2011 Insurance Poonam Washburn [address] CHOICE PLUS [facility] COMMUNITY PLAN [place] [facility] GENERIC WORKERS' COMP on file CLAIMS MANAGEMENT INC [facility] COMMUNITY PLAN [place] [address] [place] [address] Care Teams Publications Inspector Relationship Specialty Start Date End Date Nain Velazquez MD [address] [place] [address] [place] [id number] PCP - General Emergency Medicine 10/15/22
[2025-05-22 14:52] LABS: Microscopic, Urine URINE MICROSCOPIC (MICROSCOPIC)
[2025-05-22 15:07] LABS: Bilirubin,Urine Negative (Negative); Color,Urine YELLOW (Yellow); Glucose,Urine (UA) Negative (Negative); Ketones,Urine Negative (Negative); Leukocyte Esterase,Urine 1+ (Negative); PH,Urine 7.0 (5.0-8.5); Protein,Urine TRACE (Negative); Specific Gravity, Urine 1.010 (1.005-1.030); Urobilinogen,Urine 0.2 EU/dl (0.2)
[2025-05-22 15:09] LABS: Hematocrit 32.3 % (37.0-47.0); Hemoglobin 10.6 g/dL (12.2-16.2); Immature Granulocytes % 0.3 %; Mean Corpuscular HGB Conc 32.8 g/dL (31.8-35.4); Mean Corpuscular Hemoglobin 28.7 pg (27.0-31.2); Mean Corpuscular Volume 87.5 fl (81-99); Nucleated Red Blood Cells % 0 %; Platelet Count 187 K/mm3 (142-424); Red Blood Count 3.69 M/mm3 (4.20-5.40); Red Cell Distribution Width-SD 45.2 fL; White Blood Count 6.9 K/mm3 (4.8-10.8)
[2025-05-22 15:18] LABS: Albumin Level 3.7 g/dl (3.5-5.0); Chloride 107 mmol/L (98-107); Potassium 4.3 mmoL/L (3.5-5.1); Sodium 135 mmol/L (136-145)
[2025-05-22] MEDS: LABETALOL 100MG TABLET 200 MG PO (15:20)
[2025-05-22 15:21] LABS: Alanine Aminotransferase 8 U/L (12-78); Alkaline Phosphatase 153 U/L (38-126); Anion Gap 15.3 mEq/L (5-15); Aspartate Amino Transferase 20 U/L (14-36); Bilirubin,Direct 0.0 mg/dl (0.0-0.4); Bilirubin,Indirect 0.5 mg/dL (0.0-0.9); Bilirubin,Total 0.5 mg/dl (0.2-1.3); Bilirubin,Unconjugated 0.4 mg/dL (0.0-1.1); Blood Urea Nitrogen 6 mg/dl (7-17); Calcium 9.3 mg/dl (8.4-10.2); Carbon Dioxide 17 mmol/L (22.0-30.0); Creatinine Clearance Estimated 164 mL/min (50-200); Creatinine,Serum 0.50 mg/dl (0.52-1.04); Estimated Glomerular Filt Rate 153 ml/min (>60); GFR (African American) 185 ML/MIN (>60); Glucose 83 mg/dl (74-100); Total Protein,Serum 6.9 g/dl (6.3-8.2); Uric Acid 5.2 mg/dl (2.5-6.2)
[2025-05-22 15:24] LABS: Bacteria,Urine Trace /lpf
[2025-05-22 16:01] LABS: Activated Partial Thrombo Time 21.6 seconds (22.8-30.6); Fibrinogen 598 mg/dL (229.9-363.5); INR 0.91 (0.9-1.1); Prothrombin Time 10.2 seconds (10.1-12.5)
== END 2025-05-22 16:40 | disposition home or self-care (01) ==
LOC: OBOUT 14:14 → OB 14:16
PROVIDERS: Obstetrics & Gynecology; PCP Physician Assistant; Visit Provider Obstetrics & Gynecology
DX: O24.419 Gestational diabetes mellitus in pregnancy, unspecified control (principal); Z3A.35 35 weeks gestation of pregnancy
CPT/HCPCS: 59025; 80048; 80076; 81001; 82570; 84156; 84450; 84460; 84550; 85025; 85384; 85610; 85730; 87086; 99212; G0463

== ENCOUNTER 2025-05-23 17:19 | Inpatient (IN) | payer OTHER, SELFPAY ==
--- OUTSIDE RECORDS SUMMARY | 2025-04-04 09:15 | XMS_ITS | Encounter Summary ---
Author Organization [facility] Address [address] [place] [address] Care Team Providers Care Agricultural Research Engineer Name Role Phone Olive Pa Primary Care Provider [phone] Reason for Referral * Diagnostic Imaging (Routine) - Closed Specialty Diagnoses / Procedures Referred By Cintia potter Referred To Contact Radiology Diagnoses Abnormal chromosomal and genetic finding on screening mother Chronic hypertension affecting Cystic fibrosis carrier, antepartum Class 3 severe obesity in adult, unspecified BMI, unspecified obesity type, unspecified whether serious comorbidity present Procedures [facility] [place] Nova Saxena MD [address] [place] [address] Phone: tel: fax: Referral ID Status Reason Start Date Expiration Date Visits Re quested Visits Authorized [id number] Closed 02/28/2025 05/30/2026 1 1 Reason for Visit * Diagnostic Imaging (Routine) - Closed Specialty Diagnoses / Procedures Referred By Cintia potter Referred To Contact Radiology Diagnoses Abnormal chromosomal and genetic finding on screening mother Chronic hypertension affecting Cystic fibrosis carrier, antepartum Class 3 severe obesity in adult, unspecified BMI, unspecified obesity type, unspecified whether serious comorbidity present Procedures [facility] [place] Nova Saxena MD [address] [place] [address] Phone: tel: fax: Referral ID Status Reason Start Date Expiration Date Visits Re quested Visits Authorized [id number] Closed 02/28/2025 05/30/2026 1 1 Encounter Details Date Type Department Care Team (Late st Contact Info) Description 04/04/2025 9:15 AM EDT - 04/04/2025 11:59 PM EDT Hospital Encounter [facility] [address] [facility] [place] [id number] Nova Saxena MD [address] [place] [address] Abnormal chromosomal and genetic finding [...] Name Priority Date/Time Associated Diagnosis Comments [facility] Routine 04/04/2025 9:47 AM EDT Abnormal chromosomal and genetic finding on screening mother Chronic hypertension affecting Cystic fibrosis carrier, antepartum Class 3 severe obesity in adult, unspecified BMI, unspecified obesity type, unspecified whether serious comorbidity present documented in this encounter Results * [facility] (04/04/2025 9:47 AM EDT) Anatomical Region Laterality Modality Ultrasound 04/04/2025 9:41 AM EDT Narrative 04/04/2025 10:18 AM EDT PAT NAME: NAYLA PARKS [facility] REC#: [id number] DA: [id number] PAT GEND: F PAT TYPE: O EXAM NIKI: [id number] REF PHYS KALYAN MARROQUIN Comparison Studies The [...] EFW (oz) 2 oz EFW by: Hadlock ([id number]) Extended Cav. septi pel. tr 6.3 mm [...] Normal Heart / Thorax 3-vessel view: Normal 7-rsopje-zyiglab view: normal Cord insertion: Normal Stomach: Appears [...] here in 4 weeks. Coding ====== Description: [id number] Follow Up Cnc Wood Lathe Operator: Brittny Cazares RDMS Physician: Jean Fleipe MD, FACOG Electronically signed by: Jean Felipe MD, FACOG at: 10:18 Procedure Note Mickey Felipe MD - 04/04/2025 PAT NAME: NAYLA PARKS [facility] REC#: [id number] DA: [id number] PAT GEND: F PAT TYPE: O EXAM NIKI: [id number] REF PHYS KALYAN MARROQUIN Comparison Studies The findings of this study are compared to the prior ultrasound studydated 04/04/25. Patient Status Outpatient Indication ======== NIPT-No results, CF-carrier, chronic hypertension, MO BMI 48 Maternal Assessment Maqvvo233 cm Height (ft)5 ft Height (in)6 in Ydexda040 kg Weight (lb)295 lb BMI47.98 kg/m Method ======= Transabdominal ultrasound examination. View: Limited by patient bodyhabitus ========= Liriano . Number of fetuses: 1 Dating ====== GA by prior [id number] w + 6 d KRISTY by prior [...] GA28 w + 6 d Assigned KRISTY:06/21/2025 [id number] d Biometry Standard BPD72.1 mm 29w 0d 40% Hadlock OFD99.8 mm 32w 2d >99% Arsalan HC273.5 mm 29w 6d 47% Hadlock Cerebellum tr36.1 mm 29w 6d 87% Hill AC254.1 mm 29w 4d 66% Hadlock Femur56.1 mm 29w 4d 54% Hadlock Aluatdp19.9 mm 29w 6d 69% Arsalan HC / AC1.08 EFW1,411 g 29w 1d 62% Hadlock EFW (lb)3 lb EFW (oz)2 oz EFW by:Hadlock ([id number]) Extended Cav. septi pel. tr6.3 mm CM4.3 mm 2% Nicolaides Head / Face / Neck Cephalic index0.72 2% Nicolaides Extremities / Bony Struc FL / BPD0.78 FL / HC0.21 FL / AC0.22 Other Structures [id number] bpm General Evaluation Cardiac activity present. FHR 145 bpm. movements present. Presentation cephalic. Placenta Placental site: posterior. Amniotic fluid Amount of AF: normal. MVP 4.8 cm. CRISTIANE 15.0 cm. Q1 4.5 cm,Q2 4.8 cm, Q3 3.2 cm, Q4 2.6 cm. Anatomy Cranium:Normal Cavum septi pellucidi:Normal Cerebellum:Normal Cisterna magna:Normal Lips:Normal Profile:Normal Nose:Normal 4-chamber view:Appears normal RVOT view:Normal LVOT view:Normal Heart / Thorax 3-vessel view:Normal 8-bhibxg-nptprlq view:normal Cord insertion:Normal Stomach:Appears normal Kidneys:Appears normal Bladder:Appears normal Gender:female Wants to know gender:yes Maternal Structures Uterus / Cervix Cervical rhqizq24.7 mm Doppler Arterial Umbilical A PI1.11 73% [...] scheduled here in 4 weeks. Coding ====== Description:[id number] Follow Up Cnc Wood Lathe Operator: Brittny Cazares RDMS Physician: Jean Felipe [...] present documented in this encounter Care Teams Agricultural Research Engineer Relationship Specialty Start Date End Date Olive Pa PA [address] [place] [address] PCP - General 02/27/25 documented as of this encounter
--- OUTSIDE RECORDS SUMMARY | 2025-04-04 09:15 | XMS_ITS | Encounter Summary ---
Author Organization [facility] Address [address] [place] [id number] Care Team Providers Care Artist'S Model Name Role Phone Olive Pa Primary Care Provider [phone] Reason for Referral * Diagnostic Imaging (Routine) - Authorized Specialty Diagnoses / Procedures Referred By Cintia potter Referred To Contact Radiology Diagnoses Chronic hypertension affecting Abnormal chromosomal and genetic finding on screening mother , unspecified gestational age Morbid obesity with BMI of 45.0-49.9, adult Procedures [facility] Mickey Felipe MD [address] [facility] [address] [place] [address] Phone: tel: fax: [facility] [address] [place] [address] Phone: tel: Referral ID Status Reason Start Date Expiration Date V isits Requested Visits Authorized [id number] Authorized 04/04/2025 07/04/2026 1 1 Reason for Visit * Reason Comments MO; CHTN; CF carrier Encounter Details Date Type Department Care Team ([facility] Contact Info) Description 04/04/2025 9:15 AM EDT Office Visit [facility]ICAL [facility] MATERNAL MEDICINE [address] [facility] [address] [place] [phone] Mickey Felipe MD [address] [facility] [address] [place] [address] Chronic hypertension affecting (Primary Dx); Abnormal chromosomal [...] she notices any decreased movement. Orders: - [facility]; Future 2. Abnormal chromosomal and genetic finding on screening mother - [facility] [place]; Future 3. , unspecified gestational age - [facility] [place]; Future 4. Morbid obesity with BMI of 45.0-49.9, adult - [facility] [place]; Future Follow Up Return in about 4 [...] or [facility]. Mickey Felipe MD Maternal Medicine, [facility] [place] 04/04/2025 documented in this encounter Plan of Treatment Scheduled Orders Name Type Priority Associated Diagnoses Orde r Schedule [facility] Imaging Routine Chronic [...] adult documented in this encounter Care Teams Artist'S Model Relationship Specialty Start Date End Date Olive Pa PA [address] [place] [address] PCP - General 02/27/25 documented as of this encounter
--- OUTSIDE RECORDS SUMMARY | 2025-05-23 15:38 | XMS_ITS | Clinical Summary ---
Author Organization [facility] Address [address] [place] [address] Phone Care Team Providers Care Aurist Name Role Phone Nain Velazquez MD Primary Care Provider + [phone] Allergies Active Allergy Reactions Criticality Noted Date [...] on 11/15/2024 oxymetazoline (AFRIN) 0.05 % Nasl [place], Non-AerosolIndi cations:Acute rhinitis 1 [place] by Nasal route 5 times daily as [...] Estimated Date of Delivery 11/15/2024 - Present (05/23/2025) 06/21/2025 (set by Lisa Fragoso RN on [...] of estimated date of delivery: No Thalassemia (Emirati, Turkmen, Mediterranean, or background): MCV less than 80: No Neural tube defect (Meningomyelocele, Spina bifida, or Anencephaly): No Congenital heart defect: Yes (Comment: FOB's paternal cousin - unknown cardiac defect, had multiple cardiac surgeries as a /toddler) Down syndrome: No Jack-Sachs (Ashkenazi Adventist, Cajun, Yi Bermudian): No Ab disease (Ashkenazi Adventist): No Familial dysautonomia (Ashkenazi Adventist): No Sickle cell disease or trait (): No Hemophilia or other blood disorders: No Muscular dystrophy: No Cystic fibrosis: No [place]'s chorea: No Intellectual disability and/or autism: No [...] Completed 08/17/2012, 03/31, 12/31/2011 Insurance Poonam Washburn [address] CHOICE PLUS [facility] COMMUNITY PLAN [place] [facility] GENERIC WORKERS' COMP on file CLAIMS MANAGEMENT INC [facility] COMMUNITY PLAN [place] [address] [place] [address] Care Teams Aurist Relationship Specialty Start Date End Date Nain Velazquez MD [address] [place] [address] [place] [id number] PCP - General Emergency Medicine 10/15/22
--- OUTSIDE RECORDS SUMMARY | 2025-05-23 15:39 | XMS_ITS | Encounter Summary ---
Author Organization [facility] Address [address] [place] [phone] Care Team Providers Care Blower Feeder Dyed Raw Stock Name Role Phone Olive Pa Primary Care Provider Encounter Details Date Type Department Care Team [...] on filedocumented in this encounter Care Teams Blower Feeder Dyed Raw Stock Relationship Specialty Start Date End Date Olive Pa PA [address] [place] [address] PCP - General 02/27/25 documented as of this encounter
--- OUTSIDE RECORDS SUMMARY | 2025-05-23 15:39 | XMS_ITS | Clinical Summary ---
Author Organization [facility] Address [address] [place] [address] Care Team Providers Care Probate Judge Name Role Phone Olive Pa Primary Care Provider [phone] Allergies Active Allergy Reactions Criticality Noted Date [...] Description 04/04/2025 9:15 AM EDT Office Visit [facility] [address] [phone] Mickey Felipe MD Chronic hypertension affecting (Primary Dx); Abnormal chromosomal and genetic finding on screening mother; , unspecified gestational age; Morbid obesity with BMI of 45.0-49.9, adult 04/04/2025 9:15 AM EDT - 04/04/2025 11:59 PM EDT Hospital Encounter [facility] [address] [place] [phone] Nova Saxena MD Abnormal chromosomal and genetic finding on screening mother; Chronic hypertension affecting ; Cystic fibrosis carrier, antepartum; Class 3 severe obesity in adult, unspecified BMI, unspecified obesity type, unspecified whether serious comorbidity present Discharge Disposition: Home or Self Care 04/04/2025 Travel 02/28/2025 2:00 PM EDT - 02/28/2025 11:59 PM EDT Hospital Encounter [facility] [address] [place] [phone] Kalyan Zimmer, Encounter for routine screening for malformation using ultrasonics; HTN in , chronic; Obesity in , antepartum; , unspecified gestational age Discharge Disposition: Home or Self Care 02/28/2025 2:00 PM EDT Office Visit [facility] [address] [phone] Nova Saxena MD Abnormal chromosomal and genetic [...] Procedure Name Priority Date/Time Associated Diagnosis Comments [facility] Routine 04/04/2025 9:47 AM EDT Abnormal chromosomal and genetic finding on screening mother Chronic hypertension affecting Cystic fibrosis carrier, antepartum Class 3 severe obesity in adult, unspecified BMI, unspecified obesity type, unspecified whether serious comorbidity present [facility] Routine 02/28/2025 3:11 PM EDT Encounter for routine screening for malformation using ultrasonics HTN in , chronic Obesity in , antepartum , unspecified gestational age from Last 3 Months Results * [facility] (04/04/2025 9:47 AM EDT) Only the most recent of2 resultswithin the time period is included. Anatomical Region Laterality Modality Ultrasound 04/04/2025 9:41 AM EDT Narrative 04/04/2025 10:18 AM EDT PAT NAME: NAYLA PARKS [facility] REC#: [id number] DA: 2000 PAT GEND: F PAT TYPE: O EXAM NIKI: [id number] REF PHYS KALYAN ZIMMER Comparison Studies The [...] EFW (oz) 2 oz EFW by: Hadlock ([id number]) Extended Cav. septi pel. tr 6.3 mm [...] Normal Heart / Thorax 3-vessel view: Normal 0-bohzgr-kpmxcrt view: normal Cord insertion: Normal Stomach: Appears [...] here in 4 weeks. Coding ====== Description: 78127-51 Follow Up Technology Project Manager: Brittny Cazares RDMS Physician: Jean Felipe MD, FACOG Electronically signed by: Jean Felipe MD, FACOG at: 10:18 Procedure Note Mickey Felipe MD - 04/04/2025 PAT NAME: NAYLA PARKS MED REC#: [id number] DA: [id number] PAT GEND: F PAT TYPE: O EXAM NIKI: [id number] REF PHYS KALYAN ZIMMER Comparison Studies The findings of this study are compared to the prior ultrasound studydated 04/04/25. Patient Status Outpatient Indication ======== NIPT-No results, CF-carrier, chronic hypertension, MO BMI 48 Maternal Assessment Bjbrqy903 cm Height (ft)5 ft Height (in)6 in Eosooh473 kg Weight (lb)295 lb BMI47.98 kg/m Method ======= Transabdominal ultrasound examination. View: Limited by patient bodyhabitus ========= Liriano . Number of fetuses: 1 Dating ====== GA by prior fniootvoiv25 w + 6 d KRISTY by prior [...] GA28 w + 6 d Assigned KRISTY:06/21/2025 jotxfv294 d Biometry Standard BPD72.1 mm 29w 0d 40% Hadlock OFD99.8 mm 32w 2d >99% Arsalan HC273.5 mm 29w 6d 47% Hadlock Cerebellum tr36.1 mm 29w 6d 87% Hill AC254.1 mm 29w 4d 66% Hadlock Femur56.1 mm 29w 4d 54% Hadlock Qsnoaio17.9 mm 29w 6d 69% Arsalan HC / AC1.08 EFW1,411 g 29w 1d 62% Hadlock EFW (lb)3 lb EFW (oz)2 oz EFW by:Hadlock ([id number]) Extended Cav. septi pel. tr6.3 mm CM4.3 mm 2% Nicolaides Head / Face / Neck Cephalic index0.72 2% Nicolaides Extremities / Bony Struc FL / BPD0.78 FL / HC0.21 FL / AC0.22 Other Structures CFX453 bpm General Evaluation Cardiac activity present. FHR 145 bpm. movements present. Presentation cephalic. Placenta Placental site: posterior. Amniotic fluid Amount of AF: normal. MVP 4.8 cm. CRISTIANE 15.0 cm. Q1 4.5 cm,Q2 4.8 cm, Q3 3.2 cm, Q4 2.6 cm. Anatomy Cranium:Normal Cavum septi pellucidi:Normal Cerebellum:Normal Cisterna magna:Normal Lips:Normal Profile:Normal Nose:Normal 4-chamber view:Appears normal RVOT view:Normal LVOT view:Normal Heart / Thorax 3-vessel view:Normal 3-kazqap-pxlcuqg view:normal Cord insertion:Normal Stomach:Appears normal Kidneys:Appears normal Bladder:Appears normal Gender:female Wants to know gender:yes Maternal Structures Uterus / Cervix Cervical hnhibe70.7 mm Doppler Arterial Umbilical A PI1.11 73% [...] scheduled here in 4 weeks. Coding ====== Description:05915-48 Follow Up Technology Project Manager: Brittny Cazares RDMS Physician: Jean Felipe MD, FACOG Electronically signed by: Jean Felipe MD, SANDRAOG at: 10:18 us Nova Saxena MD IMG US ORDERABLES Final Res ult from Last 3 Months Insurance [facility] Care Teams Probate Judge Relationship Specialty Start Date End Date Olive Pa PA [address] [place] [address] PCP - General 02/27/25
[2025-05-23 15:57] VITALS: BMI 49.0
--- NOTE | 2025-05-23 15:58 | US_ITS ---
PROCEDURE INFORMATION: Exam: US Biophysical Profile Without Non-Stress Test Exam date and time: 05/23/2025 4:41 PM Age: 24 years old Clinical indication: Other: Maternal visual disturbances; TECHNIQUE: Imaging protocol: US biophysical profile without non-stress testing. COMPARISON: US OB BIOPHYSICAL PROFILE 05/15/2025 1:02 PM FINDINGS: Gestation: There is a single live intrauterine gestation in cephalic presentation. Placenta: The placenta is lateral and posterior grade 2. Amniotic fluid index: CRISTIANE measures 8.76. The cervix measures approximately 3.1 cm and appears closed. No previa. BIOPHYSICAL PROFILE: breathing (BPP): 2 out of 2. gross body movement (BPP): 2 out of 2. tone (BPP): 2 out of 2. Amniotic fluid (BPP): 2 out of 2. urinary bladder: Dedicated anatomic survey was not performed. The bladder, stomach appear within range of normal. IMPRESSION: 1. Biophysical profile score is 8 out of 8. 2. CRISTIANE measures 8.76. CRISTIANE previously measured 11.74 cm 05/15/2025. 3. Posterior and lateral grade 2 placenta without previa. 4. Single live intrauterine gestation in cephalic presentation.
[2025-05-23 16:01] LABS: Microscopic, Urine URINE MICROSCOPIC (MICROSCOPIC)
[2025-05-23 16:07] LABS: Bilirubin,Urine Negative (Negative); Color,Urine YELLOW (Yellow); Glucose,Urine (UA) Negative (Negative); Ketones,Urine Negative (Negative); Leukocyte Esterase,Urine TRACE (Negative); PH,Urine 7.0 (5.0-8.5); Protein,Urine TRACE (Negative); Specific Gravity, Urine 1.020 (1.005-1.030); Urobilinogen,Urine 0.2 EU/dl (0.2)
[2025-05-23 16:32] LABS: Bacteria,Urine 3+ /lpf
[2025-05-23 16:32] LABS: Hematocrit 32.4 % (37.0-47.0); Hemoglobin 10.3 g/dL (12.2-16.2); Immature Granulocytes % 0.3 %; Mean Corpuscular HGB Conc 31.8 g/dL (31.8-35.4); Mean Corpuscular Hemoglobin 29.2 pg (27.0-31.2); Mean Corpuscular Volume 91.8 fl (81-99); Nucleated Red Blood Cells % 0 %; Platelet Count 178 K/mm3 (142-424); Red Blood Count 3.53 M/mm3 (4.20-5.40); Red Cell Distribution Width-SD 48.2 fL; White Blood Count 6.6 K/mm3 (4.8-10.8)
[2025-05-23 16:43] LABS: Alanine Aminotransferase 14 U/L (12-78); Albumin Level 3.4 g/dl (3.5-5.0); Albumin/Globulin Ratio 1.0 (1.1-1.8); Alkaline Phosphatase 137 U/L (38-126); Anion Gap 12.8 mEq/L (5-15); Aspartate Amino Transferase 28 U/L (14-36); Bilirubin,Total 0.4 mg/dl (0.2-1.3); Blood Urea Nitrogen 6 mg/dl (7-17); Calcium 8.7 mg/dl (8.4-10.2); Carbon Dioxide 14 mmol/L (22.0-30.0); Chloride 110 mmol/L (98-107); Creatinine Clearance Estimated 137 mL/min (50-200); Creatinine,Serum 0.60 mg/dl (0.52-1.04); Estimated Glomerular Filt Rate 124 ml/min (>60); GFR (African American) 150 ML/MIN (>60); Globulin 3.3 g/dL (1.3-3.2); Glucose 147 mg/dl (74-100); Potassium 3.8 mmoL/L (3.5-5.1); Sodium 133 mmol/L (136-145); Total Protein,Serum 6.7 g/dl (6.3-8.2)
[2025-05-23 19:09] VITALS: BMI 48.7
[2025-05-23] MEDS: LABETALOL 100MG TABLET 200 MG PO (21:04)
[2025-05-23] MEDS: ONDANSETRON 4MG/2ML VIAL 4 MG IV (23:45)
[2025-05-23] MEDS: BUTORPHANOL TARTRATE 1 MG/ML VIAL IV (23:49)
[2025-05-24] VITALS (18 sets, daily range): BP systolic 112–166; BP diastolic 63–93; PULSE 66–97; RESP 14–20; TEMP 36.7–37; O2SAT 93–100
[2025-05-24] MEDS: CALCIUM CARBONATE 500MG CHEWTAB 500 MG PO (02:26)
[2025-05-24] MEDS: BUTORPHANOL TARTRATE 1 MG/ML VIAL IV ×2 (03:46→05:54)
[2025-05-24] MEDS: ONDANSETRON 4MG/2ML VIAL 4 MG IV ×3 (05:55→22:12)
[2025-05-24 06:09] LABS: Hematocrit 32.3 % (37.0-47.0); Hemoglobin 10.6 g/dL (12.2-16.2); Immature Granulocytes % 0.5 %; Mean Corpuscular HGB Conc 32.8 g/dL (31.8-35.4); Mean Corpuscular Hemoglobin 29.0 pg (27.0-31.2); Mean Corpuscular Volume 88.3 fl (81-99); Nucleated Red Blood Cells % 0 %; Platelet Count 255 K/mm3 (142-424); Red Blood Count 3.66 M/mm3 (4.20-5.40); Red Cell Distribution Width-SD 45.7 fL; White Blood Count 7.7 K/mm3 (4.8-10.8)
[2025-05-24 06:22] LABS: Alanine Aminotransferase 11 U/L (12-78); Albumin Level 3.5 g/dl (3.5-5.0); Albumin/Globulin Ratio 1.2 (1.1-1.8); Alkaline Phosphatase 156 U/L (38-126); Anion Gap 11.1 mEq/L (5-15); Aspartate Amino Transferase 23 U/L (14-36); Bilirubin,Total 0.4 mg/dl (0.2-1.3); Blood Urea Nitrogen 6 mg/dl (7-17); Calcium 9.1 mg/dl (8.4-10.2); Carbon Dioxide 17 mmol/L (22.0-30.0); Chloride 110 mmol/L (98-107); Creatinine Clearance Estimated 164 mL/min (50-200); Creatinine,Serum 0.50 mg/dl (0.52-1.04); Estimated Glomerular Filt Rate 153 ml/min (>60); GFR (African American) 185 ML/MIN (>60); Globulin 2.9 g/dL (1.3-3.2); Glucose 82 mg/dl (74-100); Potassium 4.1 mmoL/L (3.5-5.1); Sodium 134 mmol/L (136-145); Total Protein,Serum 6.4 g/dl (6.3-8.2)
[2025-05-24] MEDS: DEXTROSE 5%-LACTATED RINGERS 1,000 ML 125 ML IV (07:20)
[2025-05-24] MEDS: OXYTOCIN/RINGERS LACTATE 30 UNITS/500 ML BAG IV (07:21)
[2025-05-24] MEDS: LABETALOL 100MG TABLET 200 MG PO ×2 (07:40→20:53)
[2025-05-24] MEDS: LACTATED RINGERS 1000ML 1,000 ML 999 ML IV (07:40)
--- NOTE | 2025-05-24 07:47 | HMH.PHAINT1 ---
Pharmacy Intervention Comments: MEDICATION RECONCILIATION COMPLETED ON PATIENT USING EXTERNAL FILL HISTORY FROM PHARMACY. -JADEN ACOSTA, TONYD
--- NOTE | 2025-05-24 08:34 | P.PNANES_ITS ---
[facility] Disclaimer: The information contained in this section may have been updated after the patient was seen, as this information can be updated by other users. Medical History Depression Anxiety Surgical History History of tonsillectomy and adenoidectomy Family History Grandfather Cancer Diabetes Mother FHx: mental illness Multiple sclerosis Father Hyperlipidemia Hypertension Brother Hyperlipidemia Hypertension Other Anemia Asthma Social History Smoking Status: Never smoker alcohol intake: never substance use type: denies use current occupational status: employed Travel in the last 8 weeks?: None household members: family housing: house Have you lived/traveled outside US in past 30 days?: No Contact w/someone who lives/traveled outside US past 30 days?: No Exposure to someone with infectious disease in past 14 days?: No Do you have a fever (greater than 100.4 F or 38 C)?: No Have you tested positive for COVID-19?: No Exposed to someone with COVID-19 in past 14 days?: No Do you have a sore throat?: No Do you have a cough?: No Do you have any weakness?: No Do you have any diarrhea?: No Are you experiencing any unusual bleeding?: No Do you have any muscle aches/pain?: No Do you have any abdominal pain?: No Are you experiencing loss of taste or smell?: No [facility] Anesthesia Checklist Patient Identification Patient Identification: Arm Band Structural Data Admitted From: Inpatient Planned Operative Procedure/s: Labor Epidural Consent for Planned Operative Procedure(s) Verified: Yes Verified Documents: Surgical Consent and History and Physical Additional verifications Anesthesia Reactions: No Neurological Assessment Level of Consciousness: Awake, Alert and Appropriate Anesthesia Plan Anesthesia Risk discussed: Yes Anesthesia Plan: Verified ASA Class: II Anesthesia Type: Epidural
[2025-05-24] MEDS: OXYTOCIN/RINGERS LACTATE 30 UNITS/500 ML BAG 999 UNITS IV (12:15)
[2025-05-24 12:26] LABS: ABG HCO3 24.4 mmhg (22.0-26.0); ABG PH 7.26 mmol/L (7.35-7.45); ABG TCO2 26.1 mmhg (23-27); VBG HCO3 24.4 mmol/L (23-30); VBG PH 7.26 mmol/L (7.31-7.41); VBG PO2 15.1 mmol/L (28-40)
[2025-05-24 12:29] LABS: Source CORD
[2025-05-24 12:31] LABS: ABG PCO2 55.5 mmhg (35.0-45.0); ABG PO2 15.1 mmhg (80-100)
[2025-05-24 12:32] LABS: Lactate Venous 3.3 mmol/L (0.4-2.0); VBG PCO2 55.5 mmol/L (35-51)
[2025-05-24] MEDS: OXYTOCIN/RINGERS LACTATE 30 UNITS/500 ML BAG 40 UNITS IV (12:46)
[2025-05-24 13:09] LABS: Magnesium 1.7 mg/dl (1.6-2.3)
[2025-05-24] MEDS: MAGNESIUM SULFATE IN WATER 4 GM/50 ML PIGGYBACK IV (13:37)
[2025-05-24] MEDS: MAGNESIUM SULFATE IN WATER 20 GM/500 ML IV.SOLN IV (13:57)
--- NOTE | 2025-05-24 14:39 | P.HP_ITS ---
History of Present Illness *Admission Date: 05/23/25 *Reason for visit:: Induction *History of present illness: Olga Parks is a pleasant 24-year-old G1, P0 at 35 weeks and 6 days gestation who presents to labor and delivery with elevated blood pressures, not feeling well, headache, and vision changes. Workup reveals chronic hypertension with superimposed preeclampsia which is a new diagnosis from the day prior. On presentation she endorses good movement, denies any leakage of fluid or vaginal bleeding. Her has also been complicated by persistent nausea and vomiting, anxiety and depression, obesity, and effort and she has been on lipid well as well as aspirin throughout her . She is also been taking sertraline throughout this A+, antibody negative, rubella immune, hepatitis B negative, hepatitis C negative, RPR negative, HIV negative 1 hour GTT: 131 GBS negative PFSH PFS Disclaimer: The information contained in this section may have been updated after the patient was seen, as this information can be updated by other users. Medical History Depression Anxiety Surgical History History of tonsillectomy and adenoidectomy Family History Grandfather Cancer Diabetes Mother FHx: mental illness Multiple sclerosis Father Hyperlipidemia Hypertension Brother Hyperlipidemia Hypertension Other Anemia Asthma Social History Smoking Status: Never smoker alcohol intake: never substance use type: denies use current occupational status: employed Travel in the last 8 weeks?: None household members: family housing: house Have you lived/traveled outside US in past 30 days?: No Contact w/someone who lives/traveled outside US past 30 days?: No Exposure to someone with infectious disease in past 14 days?: No Do you have a fever (greater than 100.4 F or 38 C)?: No Have you tested positive for COVID-19?: No Exposed to someone with COVID-19 in past 14 days?: No Do you have a sore throat?: No Do you have a cough?: No Do you have any weakness?: No Do you have any diarrhea?: No Are you experiencing any unusual bleeding?: No Do you have any muscle aches/pain?: No Do you have any abdominal pain?: No Are you experiencing loss of taste or smell?: No Other Medical History Have you received the Flu Vaccine for this season: No Have you received the Pneumonia Vaccine: No Review of Systems Review of Systems Review of systems (narrative): Review of Systems Constitutional: Denies fever, chills, and sweats Eyes: Denies vision change/ pain Respiratory: Denies cough and shortness of breath Cardiovascular: Denies chest pain and lightheadedness Gastrointestinal: Denies abdominal pain with contractions. Denies nausea, vomiting. Genitourinary: Denies dysuria and incontinence Musculoskeletal: Denies shoulder pain and back pain Neurological: Denies change in speech or headaches Meds Home Medications and Allergies Home Medications ?Medication ?Instructions ?Recorded ?Confirmed ?Type vits no.126-ferrous fum 1 tab PO DAILY 05/24/25 History 28 mg iron-folic acid 800 mcg tablet (Classic ) blood pressure test kit-large #1 ea 02/06/25 05/22/25 Rx ondansetron 4 mg disintegrating 4 mg PO Q8H #30 tabs 0 05/03/25 05/24/25 Rx tablet labetalol 200 mg tablet 200 mg PO BID #60 tabs 05/0905/24/25 Rx ferrous sulfate 325 mg (65 mg 325 mg PO Q48H 05/24/25 05/24/25 History iron) tablet sertraline 100 mg tablet 100 mg PO DAILY 05/24/25 History New Prescriptions to Start Prescriptions: Allergies Allergy/AdvReac Type Severity Reaction Status Date / Time No Known Allergies Allergy Verified 05/15/25 14:17 Exam Data for Last 24 hours Vital signs and Labs for Last 24 Hours: Laboratory Results - last 24 hr 05/23/25 15:48: Urine Color Yellow, Urine Appearance Clear, Urine pH 7.0, Ur Specific [place] 1.020, Urine Protein Trace, Urine Glucose (UA) Negative, Urine Ketones Negative, Urine Blood Negative, Urine Nitrate Negative, Urine Bilirubin Negative, Urine Urobilinogen 0.2, Ur Leukocyte Esterase Trace, Urine RBC None, Urine WBC 10-20, Ur Squamous Epith Cells None, Urine Bacteria 3+, Urine Creatinine 97, Urine Total Protein 35.0 H 05/23/25 16:25: WBC 6.6, RBC 3.53 L, Hgb 10.3 L, Hct 32.4 L, MCV 91.8, MCH 29.2, MCHC 31.8, RDW 14.5, Plt Count 178, MPV 11.2 H, Neut % (Auto) 73.3, Lymph % (Auto) 20.4, Bailey % (Auto) 4.8, Eos % (Auto) 0.9, Baso % (Auto) 0.3, Neut # (Auto) 4.9, Lymph # (Auto) 1.4, Bailey # (Auto) 0.3, Eos # (Auto) 0.1, Baso # (Auto) 0.0, Sodium 133 L, Potassium 3.8, Chloride 110 H, Carbon Dioxide 14 L, Anion Gap 12.8, BUN 6 L, Creatinine 0.60, Estimated Creat Clear 137, Estimated GFR 124, Est GFR ( Amer) 150, Glucose 147 H, Calcium 8.7, Total Bilirubin 0.4, AST 28 D, ALT 14 D, Alkaline Phosphatase 137 H, Total Protein 6.7, Albumin 3.4 L, Globulin 3.3 H, Albumin/Globulin Ratio 1.0 L 05/23/25 17:53: Blood Type A Positive, Antibody Screen Negative, Crossmatch ([facility]) See Detail 05/24/25 05:30: WBC 7.7, RBC 3.66 L, Hgb 10.6 L, Hct 32.3 L, MCV 88.3, MCH 29.0, MCHC 32.8, RDW 14.3, Plt Count 255 D, MPV 10.7 H, Neut % (Auto) 64.7, Lymph % (Auto) 26.0, Bailey % (Auto) 7.2, Eos % (Auto) 1.2, Baso % (Auto) 0.4, Neut # (Auto) 5.0, Lymph # (Auto) 2.0, Bailey # (Auto) 0.6, Eos # (Auto) 0.1, Baso # (Auto) 0.0, Sodium 134 L, Potassium 4.1, Chloride 110 H, Carbon Dioxide 17 L, Anion Gap 11.1, BUN 6 L, Creatinine 0.50 L, Estimated Creat Clear 164, Estimated GFR 153, Est GFR ( Amer) 185 D, Glucose 82 D, Calcium 9.1, Magnesium 1.7, Total Bilirubin 0.4, AST 23, ALT 11 L, Alkaline Phosphatase 156 H, Total Protein 6.4, Albumin 3.5, Globulin 2.9, Albumin/Globulin Ratio 1.2 05/24/25 12:22: Specimen Source Cord, ABG pH 7.26 L, ABG pCO2 55.5 H, ABG pO2 15.1 L, ABG HCO3 24.4, ABG Total CO2 26.1, ABG O2 Saturation 25 L*, ABG Base Excess -2.6 L, VBG pH 7.26 L, VBG pCO2 55.5 H, VBG pO2 15.1 L, VBG HCO3 24.4, VBG Total CO2 26.1, VBG O2 Saturation 25.2 L, VBG Base Excess -2.6 L, VBG Lactic Acid 3.3 H I & O for Last 24 hours: Intake & Output 05/21/25 05/22/25 05/23/25 05/24/25 23:59 23:59 23:59 23:59 Intake Total 2104.467 / 2104.467 Balance 2104.467 / 2104.467 Weight 302 lb Microbiology Reports for the Last 24 Hours: Microbiology 05/23/25 15:48 Urine,Clean Catch Urine Culture - Preliminary Narrative: General: patient is alert oriented in no acute distress and responds appropriately to questions. HEENT: NCAT, EOMI, moist mucous membranes, neck supple with full ROM Cardiovascular: RRR +S1/S2, no murmurs or rubs Pulmonary: Clear to auscultation bilaterally, nonlabored breathing, symmetric chest rise Abdominal: Gravid abdomen appropriate for gestation. No guarding, rebound, or tenderness noted. Extremities: trace edema, no tenderness or cyanosis noted Skin: Normal turgor, intact, warm. Negative for erythema, pallor, petechia, or lesions Neurologic: Negative for sensory or motor deficit Psychiatric: Normal affect, normal thought process, good judgment and insight, no depression or anxious mood appreciated. *Routine HEENT Exam Head: Present normocephalic and atraumatic Eye: Present EOMI, PERRL and normal accommodation; Absent conjunctival icterus, scleral injection, nystagmus or exophthalmos ENT: Present mucous membranes moist *Routine Respiratory Exam Respiratory: Present CTA bilaterally, normal respiratory effort, able to speak i n complete sentences and symmetric chest movement; Absent accessory muscle use, decreased breath sounds, rales, respiratory distress, wheezes, distant breath sounds or diminished air movement *Routine Cardiovascular Exam Cardiovascular: Present RRR, Normal S1 and Normal S2; Absent murmur or gallop *Routine Abdominal Exam Abdominal: Present soft and normoactive bowel sounds; Absent tenderness, distended, rebound or guarding *Routine Rectal Exam Rectal:: deferred *Routine Genitalia Exam Genitalia:: normal female Assessment and Plan *Assessment and plan (1) Nausea and vomiting during : Status: Acute Category: Medical Code(s): O21.9 - Vomiting of , unspecified (2) Anxiety and depression: Status: Acute Category: Medical Code(s): F41.9 - Anxiety disorder, unspecified; F32.A - Depression, unspecified (3) Chronic hypertension affecting : Status: Acute Category: Medical Code(s): O10.919 - Unspecified pre-existing hypertension complicating , unspecified trimester (4) Obesity affecting , antepartum: Status: Acute Category: Medical Code(s): O99.210 - Obesity complicating , unspecified trimester (5) Asymptomatic bacteriuria: Status: Acute Category: Medical Code(s): R82.71 - Bacteriuria (6) Chronic hypertension with superimposed preeclampsia: Status: Acute Category: Medical Code(s): O11.9 - Pre-existing hypertension with pre-eclampsia, unspecified trimester Plan - Monitor vitals - Admit to L&D for induction of labor - Plan for induction with 50mcg of vaginal cytotec [id number] per protocol - External FHR and TOCO monitor - Exam on admission: /-3 - GBS neg/ Blood type: A+ - Hemoglobin: 10.3, Plt: 255 - Plan for epidural anesthesia - Anticipate vaginal delivery of female infant: Anitra #Chronic hypertension with superimposed preeclampsia - Monitor her vital signs and blood pressures per protocol. [facility] labs daily. We will initiate labetalol IV antihypertensive protocol for severe range blood pressures x 2 within 15 minutes. Magnesium will be initiated at that time as well. Otherwise I plan to initiate magnesium . If headache and vision changes are persistent we will discuss earlier magnesium administration as well #Anxiety and depression - Well-controlled with sertraline. Continue #Obesity - Complicates all aspects of maternal care
--- NOTE | 2025-05-24 14:40 | EXP.DN ---
Delivery Note Delivery Date:: 05/24/25 Delivery Time:: 12:12 Anesthesia Type: Epidural Was labor medically induced?: Yes Induction method: per misoprostol protocol Gestational age (weeks): 36 Infant delivered prior to 39 weeks?: Yes Justification for early elective delivery:: Pre-eclampsia Gender: Female at 1 minute: 6 at 5 minutes: 8 Delivery Procedure:: Preoperative diagnosis: 1. at 36 completed this weeks gestation, vertex 2. Rh positive 3. GBS negative 4. Chronic hypertension with superimposed preeclampsia 5. Maternal obesity 6. Anxiety and depression Postoperative diagnosis: 1. at 36 completed this weeks gestation, vertex 2. Rh positive 3. GBS negative 4. Chronic hypertension with superimposed preeclampsia 5. Maternal obesity 6. Anxiety and depression EBL: 500mL Specimen: 1. Cord blood 2. Placenta 3. Cord gasses Findings: 1. Liveborn viable female : Anitra. Apgars 6/8 at 1 and 5 minutes respectively. Weight: 6lb7oz 2. 2nd degree midline perineal laceration Complications: None Procedure: Nonoperative spontaneous vaginal delivery Olga Parks is a pleasant 24yo at 36w0d gestation undergoing a medical induction of labor secondary to preeclampsia with headache and vision changes. Her blood pressure has been fairly well-controlled she did have 1 elevated severe range blood pressure prior to getting her epidural. After delivery given her persistent headache and vision changes magnesium is will be initiated for 24 hours . She was brought into labor and delivery and received 2 doses of Cytotec followed by SROM. Clear fluid noted. She was started on Pitocin at a rate of 3 and if did not require any increase The infant was noted to be in DEQUAN position. With effective maternal pushing there was a nonoperative spontaneous vaginal delivery at 1212. No nuchal cord present. The anterior right shoulder delivered, followed by the posterior shoulder without dystocia. The body and lower extremities delivered without difficulty. The infant was bulb suctioned and was crying immediately following delivery. The was placed on the maternal abdomen and greater than one minute was appreciated for delayed cord clamping. The umbilical cord was doubly clamped and cut. Cord blood was collected and sent for routine testing. The placenta delivered with cord traction and suprapubic contertraction. Pitocin was started. The uterus was firm and bleeding was minimal. The perineum, vaginal hammonds, cervix, and paraurethral area were inspected thoroughly. There was a second-degree midline perineal laceration. The laceration was repaired in the usual fashion using 2-0 Vicryl suture. The laceration was hemostatic. The cervix and vaginal hammonds were inspected and noted to be hemostatic. This concluded the delivery. The patient was counseled regarding the events of the delivery and repair. The patient tolerated the delivery well. All counts were correct by nursing. Mother and were doing well and bonding upon my leaving the delivery room. Laceration:: vaginal Placental Delivery Description: Spontaneous
[2025-05-24 15:08] LABS: RPR W/RFX Titers Nonreactive (Nonreactive)
[2025-05-24] MEDS: IBUPROFEN 400 MG TABLET 800 MG PO ×2 (15:18→23:43)
[2025-05-24] MEDS: ACETAMINOPHEN 500MG TAB 1000 MG PO ×2 (15:18→20:53)
[2025-05-24 16:22] LABS: Reflex Lactic Add Lactic Reflex
[2025-05-24] MEDS: PRENATAL MULTIVITAMIN W/IRON 1 EACH PO (17:46)
[2025-05-24] MEDS: LIDOCAINE/PRILOCAINE 5GM TUBE 5 GM TP (20:36)
[2025-05-24 20:44] LABS: Magnesium 4.6 mg/dl (1.6-2.3)
[2025-05-24] MEDS: WITCH HAZEL 40 PADS/BOX 1 EACH TP (21:25)
[2025-05-24] MEDS: BENZOCAINE-MENTHOL SPRAY 56GM CAN TP (21:25)
[2025-05-25] VITALS (16 sets, daily range): BP systolic 108–165; BP diastolic 59–89; PULSE 69–106; RESP 16–18; TEMP 36.8–37; O2SAT 98–100
[2025-05-25] MEDS: DEXTROSE 5%-LACTATED RINGERS 1,000 ML 35 ML IV (00:44)
[2025-05-25] MEDS: MAGNESIUM SULFATE IN WATER 20 GM/500 ML IV.SOLN IV (00:46)
[2025-05-25] MEDS: ACETAMINOPHEN 500MG TAB 1000 MG PO ×4 (03:02→22:25)
[2025-05-25 05:50] LABS: Magnesium 5.5 mg/dl (1.6-2.3)
[2025-05-25 06:12] LABS: Hematocrit 28.1 % (37.0-47.0); Immature Granulocytes % 0.3 %; Mean Corpuscular HGB Conc 33.1 g/dL (31.8-35.4); Mean Corpuscular Hemoglobin 29.4 pg (27.0-31.2); Mean Corpuscular Volume 88.9 fl (81-99); Nucleated Red Blood Cells % 0 %; Platelet Count 238 K/mm3 (142-424); Red Blood Count 3.16 M/mm3 (4.20-5.40); Red Cell Distribution Width-SD 46.1 fL; White Blood Count 7.2 K/mm3 (4.8-10.8)
[2025-05-25 06:17] LABS: Alanine Aminotransferase 14 U/L (12-78); Albumin Level 3.0 g/dl (3.5-5.0); Albumin/Globulin Ratio 1.1 (1.1-1.8); Alkaline Phosphatase 137 U/L (38-126); Anion Gap 11.9 mEq/L (5-15); Aspartate Amino Transferase 27 U/L (14-36); Bilirubin,Total 0.2 mg/dl (0.2-1.3); Blood Urea Nitrogen 8 mg/dl (7-17); Calcium 8.2 mg/dl (8.4-10.2); Carbon Dioxide 18 mmol/L (22.0-30.0); Chloride 105 mmol/L (98-107); Creatinine Clearance Estimated 137 mL/min (50-200); Creatinine,Serum 0.60 mg/dl (0.52-1.04); Estimated Glomerular Filt Rate 124 ml/min (>60); GFR (African American) 150 ML/MIN (>60); Globulin 2.8 g/dL (1.3-3.2); Glucose 132 mg/dl (74-100); Potassium 3.9 mmoL/L (3.5-5.1); Sodium 131 mmol/L (136-145); Total Protein,Serum 5.8 g/dl (6.3-8.2)
[2025-05-25 06:24] LABS: Hemoglobin 9.3 g/dL (12.2-16.2)
[2025-05-25] MEDS: LABETALOL 100MG TABLET 200 MG PO ×2 (09:36→20:51)
[2025-05-25] MEDS: IBUPROFEN 400 MG TABLET 800 MG PO ×2 (09:36→16:35)
[2025-05-25] MEDS: SERTRALINE 100MG TABLET 100 MG PO (09:38)
--- NOTE | 2025-05-25 13:12 | P.PN_ITS ---
Subjective *Date: 05/25/25 *Time: 13:29 Interval history: Olga Parks is a G1, P1 day #1 following a normal spontaneous vaginal delivery at 36 weeks and 0 days gestation. was complicated by chronic hypertension with superimposed preeclampsia. Severe features developed with persistent headache and vision changes with elevated blood pressures, not in the severe range but elevated. Magnesium was started and will be continued for 24 hours. Routine delivery and course. She is doing well, sitting up in bed -Reports pain is well-controlled -Reports she is tolerating p.o. without nausea or vomiting. -Reports her lochia is scant. -Undecided on contraception -She is breast-feeding her female -Ambulating, voiding difficulty or dysuria. Denies chest pain shortness of breath or pain in her legs. No further complaints at this time. Exam Data for Last 24 hours Vital signs and Labs for Last 24 Hours: Temp Pulse Resp BP Pulse Ox O2 Del Method 98.4 F 96 H 18 135/74 99 Room Air 05/25/25 12:45 05/25/25 12:45 05/25/25 12:45 05/25/25 12:45 05/25/25 12:45 05/25/25 12:45 Laboratory Results - last 24 hr 05/23/25 15:48: Urine Color Yellow, Urine Appearance Clear, Urine pH 7.0, Ur Specific [place] 1.020, Urine Protein Trace, Urine Glucose (UA) Negative, Urine Ketones Negative, Urine Blood Negative, Urine Nitrate Negative, Urine Bilirubin Negative, Urine Urobilinogen 0.2, Ur Leukocyte Esterase Trace, Urine RBC None, Urine WBC 10-20, Ur Squamous Epith Cells None, Urine Bacteria 3+ 05/23/25 17:53: RPR w/Rflx to Titer Nonreactive 05/24/25 19:35: Magnesium 4.6 H D 05/25/25 05:10: WBC 7.2, RBC 3.16 L, Hgb 9.3 L D, Hct 28.1 L, MCV 88.9, MCH 29.4, MCHC 33.1, RDW 14.4, Plt Count 238, MPV 10.7 H, Neut % (Auto) 67.1, Lymph % (Auto) 26.8, [place] % (Auto) 4.7, Eos % (Auto) 0.7, Baso % (Auto) 0.4, Neut # (Auto) 4.8, Lymph # (Auto) 1.9, [place] # (Auto) 0.3, Eos # (Auto) 0.1, Baso # (Auto) 0.0, Sodium 131 L, Potassium 3.9, Chloride 105, Carbon Dioxide 18 L, Anion Gap 11.9, BUN 8 D, Creatinine 0.60, Estimated Creat Clear 137, Estimated GFR 124, Est GFR ( Amer) 150, Glucose 132 H D, Calcium 8.2 L, Magnesium 5.5 H D, Total Bilirubin 0.2, AST 27, ALT 14 D, Alkaline Phosphatase 137 H, Total Protein 5.8 L, Albumin 3.0 L D, Globulin 2.8, Albumin/Globulin Ratio 1.1 I & O for Last 24 hours: Intake & Output 05/22/25 05/23/25 05/24/25 05/25/25 23:59 23:59 23:59 23:59 Intake Total 3819.050 / 3819.050 109.667 / 109.667 Output Total 1205 / 1205 1297 / 1297 Balance 2614.050 / 2614.050 -1187.333 / -1187.333 Weight 302 lb Microbiology Reports for the Last 24 Hours: Microbiology 05/23/25 15:48 Urine,Clean Catch Urine Culture - Preliminary Gram Negative Rods Narrative: General: patient is alert oriented in no acute distress and responds appropriately to questions. Appears to be in minimal pain. fatigue ith magnesium and looking forward to it being turned off HEENT: NCAT, EOMI, moist mucous membranes, neck supple with full ROM Cardiovascular: RRR +S1/S2, no murmurs or rubs Pulmonary: Clear to auscultation bilaterally, nonlabored breathing, symmetric chest rise Abdominal: Fundus below the umbilicus, firm, and tenderness appropriate for the period. Extremities: trace edema, no tenderness or cyanosis noted Skin: Normal turgor, intact, warm. Negative for erythema, pallor, petechia, or lesions Neurologic: Negative for sensory or motor deficit Psychiatric: Normal affect, normal thought process, good judgment and insight, no depression or anxious mood appreciated. Assessment and Plan *Assessment and plan (1) Chronic hypertension with superimposed preeclampsia: Status: Acute Category: Medical Code(s): O11.9 - Pre-existing hypertension with pre-eclampsia, unspecified trimester (2) Nausea and vomiting during : Status: Acute Category: Medical Code(s): O21.9 - Vomiting of , unspecified (3) Anxiety and depression: Status: Acute Category: Medical Code(s): F41.9 - Anxiety disorder, unspecified; F32.A - Depression, unspecified (4) Obesity affecting , antepartum: Status: Acute Category: Medical Code(s): O99.210 - Obesity complicating , unspecified trimester (5) (normal spontaneous vaginal delivery): Status: Acute Category: Medical Code(s): O80 - Encounter for full-term uncomplicated delivery Plan Stable. PPD#1 s/p . -Doing well. VSS. Serial lochia and fundal checks. -Continue with perineal ice packs for discomfort -Hemoglobin: 10.3--> 9.3 - asymptomatic anemia noted. Vitals stable. Continue monitoring. DC with Fe -A+/antibody negative -, female -Contraception: undecided -Follow-up 1-2 weeks for routine visit and blood pressure check -Dispo: home in 1-3 days pending mother/ status #Chronic hypertension with superimposed preeclampsia - Monitor her vital signs and blood pressures per protocol. PIH labs daily. We will initiate labetalol IV antihypertensive protocol for severe range blood pressures x 2 within 15 minutes. Magnesium will be initiated at that time as well. Otherwise I plan to initiate magnesium . If headache and vision changes are persistent we will discuss earlier magnesium administration as well #Anxiety and depression - Well-controlled with sertraline. Continue #Obesity - Complicates all aspects of maternal care
[2025-05-25] MEDS: PRENATAL MULTIVITAMIN W/IRON 1 EACH PO (16:36)
[2025-05-25] MEDS: SENNA 8.6MG TABLET 8.6 MG PO (20:51)
[2025-05-26 00:05] VITALS: BP 108/62; PULSE 94; O2SAT 100
[2025-05-26] MEDS: IBUPROFEN 400 MG TABLET 800 MG PO ×2 (00:06→08:46)
[2025-05-26 04:11] VITALS: BP 113/58; PULSE 85; RESP 16; TEMP 36.9; O2SAT 99
[2025-05-26] MEDS: ACETAMINOPHEN 500MG TAB 1000 MG PO (04:14)
--- NOTE | 2025-05-26 06:22 | EXP.DC.SUM ---
General Admission date:: 05/23/25 Discharge date: 05/26/25 HPI HPI HPI: Olga Parks is a pleasant 24-year-old G1, P0 at 35 weeks and 6 days gestation who presents to labor and delivery with elevated blood pressures, not feeling well, headache, and vision changes. Workup reveals chronic hypertension with superimposed preeclampsia which is a new diagnosis from the day prior. On presentation she endorses good movement, denies any leakage of fluid or vaginal bleeding. Her has also been complicated by persistent nausea and vomiting, anxiety and depression, obesity, and effort and she has been on lipid well as well as aspirin throughout her . She is also been taking sertraline throughout this A+, antibody negative, rubella immune, hepatitis B negative, hepatitis C negative, RPR negative, HIV negative 1 hour GTT: 131 GBS negative Hospital Course Hospital Course Hospital Course: Olga Parks is a pleasant 24yo at 36w0d gestation undergoing a medical induction of labor secondary to preeclampsia with headache and vision changes. Her blood pressure has been fairly well-controlled she did have 1 elevated severe range blood pressure prior to getting her epidural. After delivery given her persistent headache and vision changes magnesium is will be initiated for 24 hours . She was brought into labor and delivery and received 2 doses of Cytotec followed by SROM. Clear fluid noted. She was started on Pitocin at a rate of 3 and if did not require any increase The infant was noted to be in DEQUAN position. With effective maternal pushing there was a nonoperative spontaneous vaginal delivery at 1212. No nuchal cord present. The anterior right shoulder delivered, followed by the posterior shoulder without dystocia. The body and lower extremities delivered without difficulty. The infant was bulb suctioned and was crying immediately following delivery. The infant was placed on the maternal abdomen and greater than one minute was appreciated for delayed cord clamping. The umbilical cord was doubly clamped and cut. Cord blood was collected and sent for routine testing. The placenta delivered with cord traction and suprapubic contertraction. Pitocin was started. The uterus was firm and bleeding was minimal. The perineum, vaginal hammonds, cervix, and paraurethral area were inspected thoroughly. There was a second-degree midline perineal laceration. The laceration was repaired in the usual fashion using 2-0 Vicryl suture. The laceration was hemostatic. The cervix and vaginal hammonds were inspected and noted to be hemostatic. This concluded the delivery. The patient was counseled regarding the events of the delivery and repair. The patient tolerated the delivery well. All counts were correct by nursing. Mother and were doing well and bonding upon my leaving the delivery room. She has done reasonably well and was on magnesium sulfate for 24 hours. She has had a couple of spikes in her blood pressure. She has been taking labetalol 200 mg twice daily. On the evening prior to discharge I had given her a dose of nifedipine 30 mg XL. Her blood pressures this morning have been doing well. Her blood pressure was 113/58 this morning. Given that she has had good recovery of her blood pressures I will consider just using nifedipine 30 mg XL once daily rather than twice daily. She will continue with her labetalol 200 mg twice daily. While hospitalized she was having some anxiety and I have started her on Vistaril 25 mg 3 times daily as needed and we will make sure she has a prescription for this when she goes home. This seemed to help significantly with her anxiety. We will plan to send her home later today. She will continue with labetalol 200 mg twice daily and nifedipine 30 mg XL once daily. She will follow-up in 3 days time in the office for blood pressure check. She will continue with her vitamins and iron. She will continue with her home medications. She was given the usual instructions with respect to limiting her activity, driving and sexual activity. She would given PIH warning and was told to watch for headache, epigastric pain and scotomata. Her condition on discharge is stable and improved. Exam Data for Last 24 hours Vital signs and Labs for Last 24 Hours: Temp Pulse Resp BP Pulse Ox O2 Del Method 98.5 F 85 16 113/58 L 99 Room Air 05/26/25 04:11 05/26/25 04:11 05/26/25 04:11 05/26/25 04:11 05/26/25 04:11 05/26/25 04:11 Laboratory Results - last 24 hr 05/23/25 15:48: Urine Color Yellow, Urine Appearance Clear, Urine pH 7.0, Ur Specific [place] 1.020, Urine Protein Trace, Urine Glucose (UA) Negative, Urine Ketones Negative, Urine Blood Negative, Urine Nitrate Negative, Urine Bilirubin Negative, Urine Urobilinogen 0.2, Ur Leukocyte Esterase Trace, Urine RBC None, Urine WBC 10-20, Ur Squamous Epith Cells None, Urine Bacteria 3+ 05/25/25 05:10: Hgb 9.3 L D, Sodium 131 L, Potassium 3.9, Chloride 105, Carbon Dioxide 18 L, Anion Gap 11.9, BUN 8 D, Creatinine 0.60, Estimated Creat Clear 137, Estimated GFR 124, Est GFR ( Amer) 150, Glucose 132 H D, Calcium 8.2 L, Total Bilirubin 0.2, AST 27, ALT 14 D, Alkaline Phosphatase 137 H, Total Protein 5.8 L, Albumin 3.0 L D, Globulin 2.8, Albumin/Globulin Ratio 1.1 I & O for Last 24 hours: Intake & Output 05/23/25 05/24/25 05/25/25 05/26/25 11:59 11:59 11:59 11:59 Intake Total 3928.717 / 3928.717 1331.25 / 1331.25 Output Total 450 / 450 1976 / 1976 1700 / 1700 Balance -450 / -450 1951.717 / 1951.717 -368.75 / -368.75 Weight 302 lb Microbiology Reports for the Last 24 Hours: Microbiology 05/23/25 15:48 Urine,Clean Catch Urine Culture - Preliminary Gram Negative Rods Constitutional Constitutional: no acute distress *Routine HEENT Exam Head: Present normocephalic *Routine Neck Exam Neck: Present full ROM *Routine Respiratory Exam Respiratory: Present normal respiratory effort; Absent accessory muscle use Results Data Completed and Pending Labs on day of discharge: Labs from last 24 hours 05/25/25 05/23/25 05:10 15:48 Hgb 9.3 L D Sodium 131 L Potassium 3.9 Chloride 105 Carbon Dioxide 18 L Anion Gap 11.9 BUN 8 D Creatinine 0.60 Estimated Creat Clear 137 Estimated GFR 124 Est GFR ( Amer) 150 Glucose 132 H D Calcium 8.2 L Total Bilirubin 0.2 AST 27 ALT 14 D Alkaline Phosphatase 137 H Total Protein 5.8 L Albumin 3.0 L D Globulin 2.8 Albumin/Globulin Ratio 1.1 Urine Color Yellow Urine Appearance Clear Urine pH 7.0 Ur Specific [place] 1.020 Urine Protein Trace Urine Glucose (UA) Negative Urine Ketones Negative Urine Blood Negative Urine Nitrate Negative Urine Bilirubin Negative Urine Urobilinogen 0.2 Ur Leukocyte Esterase Trace Urine RBC None Urine WBC 10-20 Ur Squamous Epith Cells None Urine Bacteria 3+ Preliminary micro results at discharge 05/23/25 15:48 Urine Culture - Preliminary Urine,Clean Catch Gram Negative Rods DS: Diagnosis Discharge Diagnosis (1) Chronic hypertension with superimposed preeclampsia: Status: Acute Code(s): O11.9 - Pre-existing hypertension with pre-eclampsia, unspecified trimester (2) Nausea and vomiting during : Status: Acute Code(s): O21.9 - Vomiting of , unspecified (3) Anxiety and depression: Status: Acute Code(s): F41.9 - Anxiety disorder, unspecified; F32.A - Depression, unspecified (4) Obesity affecting , antepartum: Status: Acute Code(s): O99.210 - Obesity complicating , unspecified trimester Qualifiers: Obesity type affecting : other obesity due to excess calories Qualified Code(s): O99.210 - Obesity complicating , unspecified trimester; E66.09 - Other obesity due to excess calories (5) (normal spontaneous vaginal delivery): Status: Acute Code(s): O80 - Encounter for full-term uncomplicated delivery Meds Home Medications and Allergies Home Medications ?Medication ?Instructions ?Recorded ?Confirmed ?Type vits no.126-ferrous fum 1 tab PO DAILY 12/19/24 05/24/25 History 28 mg iron-folic acid 800 mcg tablet (Classic ) blood pressure test kit-[facility] #1 ea 02/06/25 05/22/25 Rx ondansetron 4 mg disintegrating 4 mg PO Q8H #30 tabs 05/03/25 05/24/25 Rx tablet labetalol 200 mg tablet 200 mg PO BID #60 tabs 05/09/25 05/24/25 Rx ferrous sulfate 325 mg (65 mg 325 mg PO Q48H 05/24/25 05/24/25 History iron) tablet sertraline 100 mg tablet 100 mg PO DAILY 05/24/25 05/24/25 History hydroxyzine HCl 25 mg tablet 25 mg PO TID PRN anxiety #60 tabs 05/26/25 Rx nifedipine 30 mg tablet,extended 30 mg PO DAILY #30 tabs 05/26/25 Rx release 24 hr (Procardia XL) New Prescriptions to Start Prescriptions: hydroxyzine HCl Ruddy Pulido nifedipine [Procardia XL] Ruddy Pulido Allergies Allergy/AdvReac Type Severity Reaction Status Date / Time No Known Allergies Allergy Verified 05/15/25 14:17 Discharge Plan Disposition Patient Disposition: Home, Self-Care Discharge Order Discharge Orders: Discharge Order (Routine); Ordered 05/26/25 Ordered By: Ruddy Pulido Follow up Plan Follow up with: Ruddy Pulido MD [Staff Physician, PRESSING MACHINE TENDER] - 05/31/25 10:30 am Referral Note: BP Check. Ivania Holt DO [Staff Physician, PRESSING MACHINE TENDER] - 06/07/25 9:45 am Prescriptions/Medication Reconciliation: New nifedipine [Procardia XL] 30 mg tablet extended release 24hr 30 mg PO DAILY Qty: 30 1RF hydroxyzine HCl 25 mg tablet 25 mg PO TID PRN (Reason: anxiety) Qty: 60 0RF Continued Classic 28 mg iron- 800 mcg tablet 1 tab PO DAILY (DME) blood pressure test kit-large Kit See Rx Instructions .Route Qty: 1 0RF Rx Instructions: As directed ondansetron 4 mg tablet,disintegrating 4 mg PO Q8H Qty: 30 1RF labetalol 200 mg tablet 200 mg PO BID Qty: 60 2RF sertraline 100 mg tablet 100 mg PO DAILY ferrous sulfate 325 mg (65 mg iron) tablet 325 mg PO Q48H Problem Reconciliation Problems Reviewed?: Yes Patient Discharge Instructions ACTIVITY: No heavy lifting DIET: continue same diet Additional Instructions: *Nothing in the vagina for 6 weeks* *No heavy lifting* *No strenuous activity* Patient Instructions: Depression, Hemorrhage, DI for Labor and Delivery, Vaginal , DI for Pre-eclampsia, [facility] Post Discharge Instructions Print Language: Upper Sorbian Providers Primary Care Provider: Olive Pa Admit Provider: Latrice Zimmer Attending Provider: Latrice Zimmer
[2025-05-26 06:46] VITALS: BP 111/65; PULSE 80
[2025-05-26] MEDS: LABETALOL 100MG TABLET 200 MG PO (09:21)
[2025-05-26] MEDS: SERTRALINE 100MG TABLET 100 MG PO (09:21)
[2025-05-28 14:06] LABS: POC Glucose,Bedside 100 gm/dL (70-110)
== END 2025-05-26 16:10 | disposition home or self-care (01) | DRG 807 ==
LOC: OBOUT 17:19 → OB 17:19
PROVIDERS: Admitting Provider Obstetrics & Gynecology; PCP Physician Assistant; Visit Provider Obstetrics & Gynecology
DX: O11.4 Pre-existing hypertension with pre-eclampsia, complicating childbirth (principal); Z37.0 Single live birth; O10.92 Unspecified pre-existing hypertension complicating childbirth; Z3A.35 35 weeks gestation of pregnancy; O70.1 Second degree perineal laceration during delivery; O99.344 Other mental disorders complicating childbirth; F41.9 Anxiety disorder, unspecified; F32.A Depression, unspecified; O21.9 Vomiting of pregnancy, unspecified; O99.214 Obesity complicating childbirth; E66.09 Other obesity due to excess calories; O23.93 Unspecified genitourinary tract infection in pregnancy, third trimester; O90.81 Anemia of the puerperium; R82.71 Bacteriuria; Z79.899 Other long term (current) drug therapy; Z79.82 Long term (current) use of aspirin; Z23 Encounter for immunization
CPT/HCPCS: 36415; 36600; 51702; 59025; 76819; 80053; 81001; 82570; 82803; 82962; 83735; 84156; 85025; 86592; 86850; 87086; 87088; 87186; J0595; J0665; J0696; J2003; J2405; J2795; J3010; J3475; J7120; J7121

== ENCOUNTER 2025-08-17 15:39 | Outpatient (CLI) | payer OTHER, SELFPAY ==
[2025-08-17 20:03] LABS: Coronavirus 19, PCR Not Detected (NotDetected); Influenza A, PCR Not Detected (NotDetected); Influenza B, PCR Not Detected (NotDetected)
--- OUTSIDE RECORDS SUMMARY | 2025-08-18 09:47 | XMS_ITS | Clinical Summary ---
Author Organization [facility] Address [address] [place] [address] Care Team Providers Care Maintenance Helper Name Role Phone Olive Pa Primary Care Provider [phone] Allergies Active Allergy Reactions Criticality Noted Date [...] (02/28/2025 3:27 PM EDT): FOB is negative. Social History Tobacco Use Types Packs/Day Years Used Date Smoking Tobacco: Never Smokeless Tobacco: Never Tobacco Cessation:Counseling Given: Not Answered Alcohol Use Standard Drinks/Week Comments Not Currently 0 (1 standard drink = 0.6 oz pur e alcohol) Comments No Sex and Gender Information Value Date Recorded [...] ANNUAL PHYSICAL 02/06/2025 INFLUENZA VACCINE 03/30/2025 06/03/2017 Pneumococcal Vaccine 0-49 Completed 2002, 12/04/2002, 03/10/2002, Additional history exists HPV VACCINES Completed 08/17/2012, 03/31, 12/31/2011 HEPATITIS C SCREENING Completed 12/01/2024, 025 Insurance [facility] [employer] [facility] Care Teams Maintenance Helper Relationship Specialty Start Date End Date Olive Pa PA [address] [place] [address] [facility] - General 02/27/25
--- OUTSIDE RECORDS SUMMARY | 2025-08-18 09:47 | XMS_ITS | Clinical Summary ---
Author Organization [facility] Address [address] [place] [address] Phone Care Team Providers Care Ops Manager Name Role Phone Nain Velazquez MD Primary Care Provider + [phone] Allergies Active Allergy Reactions Criticality Noted Date [...] on 11/15/2024 oxymetazoline (AFRIN) 0.05 % Nasl [place], Non-AerosolIndi cations:Acute rhinitis 1 [place] by Nasal route 5 times daily as [...] Estimated Date of Delivery 11/15/2024 - Present (08/18/2025) 06/21/2025 (set by Lisa Fragoso RN on [...] of estimated date of delivery: No Thalassemia (Turkish, Swedish, Mediterranean, or background): MCV less than 80: No Neural tube defect (Meningomyelocele, Spina bifida, or Anencephaly): No Congenital heart defect: Yes (Comment: FOB's paternal cousin - unknown cardiac defect, had multiple cardiac surgeries as a /toddler) Down syndrome: No Jack-Sachs (Ashkenazi Catholic, Cajun, Vincentian Iranian): No Ab disease (Ashkenazi Catholic): No Familial dysautonomia (Ashkenazi Catholic): No Sickle cell disease or trait (): [...] 04/23/2021, 03/22/2021 Influenza Vaccine (#1) 2025 06/03/2017 Hepatitis B Vaccine Completed 06/09/2002, 01/06/2002, 2001 Pneumococcal Vaccine 0-49 Completed 2002, 12/04/2002, 03/10/2002, Additional history exists HPV Completed 08/17/2012, 03/31, 12/31/2011 RSV or 60+ (No Dose s Required) Completed Insurance [facility] [employer] [facility] [employer] on file CLAIM[employer] [facility] [employer] [place] [facility] [address] [place] [address] Care Teams Ops Manager Relationship Specialty Start Date End Date Nain Velazquez MD [address] [facility] [address] [place] [id number] PCP - General Emergency Medicine 10/15/22
--- OUTSIDE RECORDS SUMMARY | 2025-08-18 09:47 | XMS_ITS | Data Portability ---
Author Organization [employer], [facility] [place] Address [address] [place] [address] Assessment No assessment recorded. Plan of Treatment Reminders Order Date Submit Date Provider Last Modified By Organization Details Last Modified Time Details Appointments None recorded. Lab None recorded. Referral None recorded. Procedures None recorded. Surgeries None recorded. Imaging None recorded. Medication Orders sertraline 100 mg tablet 2024 025 [facility] #[id number], [facility] [place], [address], 10:27:22 Patient TargetsNo targets recorded. Patient Instructions Encounter Date Encounter Id Patient Instructions Last Modified By Organization Details Last Modified Time 11/02/2024 [id number] learning about mood disorders [email or web address] Not available 11/02/2024 10:27:20 Reason for Referral None Reported. Results Created Date Observation Date Name Description Value Unit Range Abnormal Flag Note LastModifiedBy Organization Detail LastModifiedTime 05/15/2005/15/2025 US, axel tric, bioph ysica l profi le No observ ation record ed. [email or web address] [facility] [address], [place], [address], 05/17/2025 16:13:30 05/23/2005/23/2025 US, obste tric, bioph ysica l profi le + non-s tress test No observ ation record ed. [email or web address] [facility] [address], [place], [address], 05/24/2025 09:44:31 05/23/2005/23/2025 US, obste tric, bioph ysica l profi le + non-s tress test No observ ation record ed. [email or web address] [facility] [address], [place], [address], 05/24/2025 09:44:08 Result Notes None recorded. Problems Name Problem SNOMED Code Status Onset Date Resolution Date Notes Provider Name and Address Organization Details Recorded Time Depressive disorder [id number] Active 024 SADIA Koch [address] [place], [address], [employer]. 09:58:44 Problem Notes None recorded. Procedures Surgical History Date Name Laterality Status Provider Name and Address Organization Details Recorded Time Tonsillectomy completed [employer]. 11/02/2024 10:04:54 Imaging Results None recorded. Procedure Notes None recorded. Medical Equipment None Reported. Allergies No known drug allergies Medications Name Sig Start Date Stop Date Status Note LastModified by Organization Details LastModified Time ondansetron HCl 4 mg tablet TAKE 1 TABLET BY MOUTH EVERY 6 HOURS NEEDED FOR NAUSEA active Not Available Not Available No t Available sertraline 100 mg tablet TAKE 1 TABLET EVERY DAY BY MOUTH DIRECTED FOR 90 DAYS FOR DEPRESSIO N. 2024 active Not Available Not Available Not Avai lable ondansetron 4 mg disintegrat ing tablet 4 MG ORALLY EVERY 8 HOURS NEEDED FOR NAUSEA AND VOMITING FOR 4 DAYS 11/01 completed Not Available Not Available Not Available active Not Available Not Avai lable Not Available Vitals Date Recorded Body weight Body mass index (BMI) Body height Oxygen saturation Heart rate Body temperature Systolic And Diastolic Provider Name and Address Organization Details Last Updated DateTime 5 496817. 3 g 42.6 kg/m2 172.72 cm 98 % 82 /min 98.8 [degF] 132/84 mm[Hg] [employer] 5 10:10:02 Social History Question Answer Notes LastModified by Organizat ion Details LastModified Time Tobacco Smoking Status Never Smoker MariferDr Lal [employer] 11/02/2024 10:04:54 Do You Have An Advance [...] Information not available 11/02/2024 What Type Of Nail Puller Do You Use? None Information not available 11/02/2024 Have You Been To An Area Known To Be High Risk For COVID-19? No Information not available 11/02/2024 Are You Deaf Or Do You Have Serious Difficulty Hearing? No Information not available 11/02/2024 What Type Of Diet Are You Following? REGULAR Information not available 11/02/2024 Who Is Your Employer? [employer] Information not available 11/02/2024 How [...] Do You Have A Medical Power Of Hose Coupling Joiner? No Information not available 11/02/2024 What Was [...] not available 11/02/2024 Are you able to walk independently without assistance or assistive devices? [employer] Information not available 11/02/2024 Do you have difficulty doing errands alone? No Information not available 11/02/2024 Are you able to care for yourself independently? Yes Information not available 11/02/2024 Do you have difficulty dressing, bathing, grooming, or toileting? No Information not available 11/02/2024 What is your exercise level? Occasional Information not available 11/02/2024 Mental Status Question Answer Note LastModified by Organizat ion Details LastModified Time Do you feel stressed (tense, restless, nervous, or anxious, or unable to sleep at night)? [id number] Information not available 11/02/2024 Do you have [...] Stones N Blood Diseases N Hyperthyroidism N Breast Cancer N Blood Transfusion N Emergency room visit since last appointm ent. N Hypothyroidism N Lung Disease N Dermatologic Disorders N COPD N Depression Y Developmental or Behavioral Disorders N Defects or [...] N High Cholesterol N Liver Disease N Psychiatric/Mental Health Condition N Organ Transplant N Fibromyalgia N Dialysis N Schizophrenia N [...] N Pulmonary Embolism N Tourette Syndrome N Pre-Eclampsia N Hypertension N Chronic Ear Infections N Osteoporosis N Chicken Pox N Autism Spectrum Disorder (ASD) N Thrombophilias N Gynecological History Statement/Question Response Abnormal Pap N Flow Moderate Date of LMP 09/14/2024 On BCP's at Conception? N HPV Vaccine Y Duration of Flow (days) 5-7 Most Recent Mammogram Age at Menarche 13 Current Control Method Age at First Child Not yet born Frequency of Cycle (Q days) 26-31 Sexually Active? Y Menses Monthly Y Date of Last Pap Smear LMP Definite Obstetrics History GPAL:G 1 P 0 0 0 0 Immunizations Vaccine Type Date Status Note Provider Nam e and Address Organization Details Recorded Time Hib, unspecified formulation 2 completed Marifer Vice null, Who [employer] 11/02/2024 10:05:08 Hib, unspecified formulation 3 completed Marifer Vice null, Who [employer] 11/02/2024 10:05:08 Hib, unspecified formulation 2 completed Marifer Vice null, Who [employer] 11/02/2024 10:05:08 Hib, unspecified formulation 2 completed Marifer Vice null, Who [employer] 11/02/2024 10:05:08 IPV 6 completed Marifer Vice null, [employer] 11/02/2024 10:05:08 IPV 2 completed Marifer Vice null, [employer] 11/02/2024 10:05:08 IPV 2 completed Marifer Vice null, [employer] 11/02/2024 10:05:08 IPV 2 completed Marifer Vice null, [employer] 11/02/2024 10:05:08 MMR 6 completed Marifer Vice null, [employer] 11/02/2024 10:05:08 MMR 3 completed Marifer Vice null, [employer] 11/02/2024 10:05:09 COVID-19, mRNA, LNP-S, PF, 30 mcg/0.3 mL dose 2 completed Marifer Vice null, [employer] 11/02/2024 10:05:09 COVID-19, mRNA, LNP-S, PF, 30 mcg/0.3 mL dose 1 completed Marifer Vice null, [employer] 11/02/2024 10:05:09 COVID-19, mRNA, LNP-S, PF, 30 mcg/0.3 mL dose 1 completed Marifer Vice null, [employer] 11/02/2024 10:05:09 Tdap 3 completed Marifer Vice null, [employer] 11/02/2024 10:05:09 Pneumococcal conjugate PCV 13 3 completed Marifer Vice null, [employer] 11/02/2024 10:05:09 Pneumococcal conjugate PCV 13 2 completed Marifer Vice null, [employer] 11/02/2024 10:05:09 Pneumococcal conjugate PCV 13 3 completed Marifer Vice null, [employer] 11/02/2024 10:05:09 Pneumococcal conjugate PCV 13 2 completed Marifer Vice null, [employer] 11/02/2024 10:05:09 varicella 04/07/200 3 completed Marifer Vice null, Who [employer] 11/02/2024 10:05:09 varicella 2 completed Marifer Vice null, Who [employer] 11/02/2024 10:05:09 HPV, unspecified formulation 2 completed Marifer Vice null, Who [employer] 11/02/2024 10:05:09 HPV, unspecified formulation 2 completed Marifer Vice null, [employer] 11/02/2024 10:05:09 HPV, unspecified formulation 2 completed Marifer Vice null, Who [employer] 11/02/2024 10:05:09 Hep B, adolescent or pediatric 2 completed Marifer Vice null, Who [employer] 11/02/2024 10:05:09 Hep B, adolescent or pediatric 2 completed Marifer Vice null, Who [employer] 11/02/2024 10:05:09 Hep B, adolescent or pediatric 2 completed Marifer Vice null, Who [employer] 11/02/2024 10:05:09 Hep A, ped/adol, 2 dose 3 completed Marifer Vice null, Who [employer] 11/02/2024 10:05:09 Hep A, ped/adol, 2 dose 2 completed Marifer Vice null, Who [employer] 11/02/2024 10:05:09 meningococcal MCV4P 3 completed Marifer Vice null, Who [employer] 11/02/2024 10:05:09 meningococcal MCV4P 8 completed Marifer Vice null, Who [employer] 11/02/2024 10:05:09 DTaP, unspecified formulation 3 completed Marifer Vice null, Who [employer] 11/02/2024 10:05:09 DTaP, unspecified formulation 6 completed Marifer Vice null, Who [employer] 11/02/2024 10:05:09 DTaP, unspecified formulation 2 completed Marifer Vice null, Who [employer] 11/02/2024 10:05:09 DTaP, unspecified formulation 2 completed Marifer Vice null, Who [employer] 11/02/2024 10:05:09 DTaP, unspecified formulation 2 completed Marifer Vice null, Who [employer] 11/02/2024 10:05:09 Influenza, split virus, quadrivalent, PF 7 completed Marifer Vice null, Who [employer] 11/02/2024 10:05:09 Past Encounters Encounter ID Performer Location Encounter Start Date Encounter Closed Date Diagnosis/Indication Diagnosis SNOMED-CT Code Diagnosis ICD10 Code Diagnosis IMO Codes Diagnosis Note [id number] SADIA Koch [facility] [address] [place] [address] 11/02/2024 09:56:54 11/02/2024 10:30:02 Depressive disorder 36166508 F32.A Discussed risk and benefits of Zoloft - has been on since age 13 00196909 Z33.1 LMP 09/14/24 so roughly 7 weeks [...] Barth Member ID Guarantor Name 11/28/2024 1 [facility] Olga Rene Parks [id number] Olga Parks Notes Date Note Type Note Provider Name and Address Organization Details Recorded Time 11/02/2024 text/html ROS as noted in the HPI Patient presents to establish care. History of depression. Originally made appt for refills on Zoloft but also just found out that she is .Has been on Zoloft since she was 13. Works very well for her. No side effects.LMP was 09/14/24. Has OB appt 11/15. Is taking a PNV. Has some morning sickness. SADIA Koch [address] [place] [address], [place], [address], [facility] [employer], [facility]. 11/02/2024 11:24:32 OBGyn Episode No OBEpisode recorded.
== END 2025-08-17 23:59 | disposition home or self-care (01) ==
LOC: LAB.DROPOF 08-18 09:45
PROVIDERS: PCP Physician Assistant; Visit Provider Student in an Organized Health Care Education/Training Program
DX: J06.9 Acute upper respiratory infection, unspecified (principal)
CPT/HCPCS: 87631